=== PATIENT | female | born 1945 | race Caucasian/White ===

== ENCOUNTER 2021-12-04 09:44 | Inpatient (IN) | payer MEDICARE, OTHER, SELFPAY ==
[2021-12-04] VITALS (37 sets, daily range): BP systolic 100–146; BP diastolic 60–101; PULSE 89–193; RESP 12–29; TEMP 36.5–37.2; O2SAT 89–100; BMI 23.8
--- NOTE | 2021-12-04 | ECHO_ITS ---
Patient Info Name: Kavita Moreno Age: 76 years : 1945 Gender: Female Ht: 66 in Wt: 148 lbs BSA: 1.78 m2 HR: 90 bpm BP: 130 / 60 mmHg Technical Quality: Poor Exam Date: 12/04/2021 2:27 PM Exam Location: [facility], formerly [facility] Pulmonary Patient Status: Inpatient Admit Date: 12/04/2021 Staff Ordering Physician: Pedro Boyer DO Liner Checker: Cj Tse RDCS, RT Attending Provider: Ofelia Bai MD Exam Type: CA echo doppler color flow Study Info Complete two-dimensional, color flow and Doppler transthoracic echocardiogram is performed. Summary 1. Complete two-dimensional, color flow and Doppler transthoracic echocardiogram is performed. 2. Technically suboptimal study due to poor sonographic images. 3. Left ventricular chamber dimension is normal. 4. Left ventricular systolic function is normal, estimated at 60-65%. 5. The left ventricular diastolic function is grade I diastolic dysfunction. 6. E/e' 8 is minimally elevated. Left Ventricle E/e' 8 is minimally elevated. Technically suboptimal study due to poor sonographic images. Left ventricular chamber dimension is normal. Left ventricular systolic function is normal, estimated at 60-65%. The left ventricular diastolic function is grade I diastolic dysfunction. Right Ventricle Right ventricular systolic function is normal based on normal TAPSE 1.9 cm. Right ventricular chamber dimension is not well visualized. Left Atria Left atrial chamber dimension is normal. Right Atria Right atrial chamber dimension is not well visualized. Aortic Valve The aortic valve is not well visualized. Cannot determine number of aortic valve leaflets. There is no aortic valve stenosis. There is no aortic valve regurgitation. Pulmonic Valve The pulmonic valve is not well visualized. There is no pulmonic regurgitation. Mitral Valve The mitral valve has not well visualized. There is no mitral valve stenosis. There is no mitral valve regurgitation. Tricuspid Valve The tricuspid valve leaflets are not well visualized. There is no tricuspid valve regurgitation. Pericardium/Pleural There is no pericardial effusion. Inferior Vena Cava Normal inferior vena cava with >50% collapse upon inspiration consistent with normal right atrial pressure, 5 mmHg. Aorta The aortic root size at the sinus of Valsalva is not well visualized. Left Ventricular Outflow Tract Name Value Normal LVOT 2D LVOT Diameter 2.0 cm LVOT Doppler LVOT Peak Gradient 3 mmHg LVOT Mean Gradient 2 mmHg LVOT VTI 16 cm LVOT VTI/AV VTI Ratio 1.1 LVOT Stroke Volume 51 ml LVOT CO 4.7 l/min LVOT CI 2.7 l/min/m2 Mitral Valve Name Value Normal MV Doppler
--- NOTE | ~2021-12-04 | US_ITS ---
EXAMINATION: US thoracentesis DATE: 12/05/2021 13:20 INDICATION: Right pleural effusion. TECHNIQUE: The procedure and its risks, benefits, and alternatives were discussed with the patient. P otential risks discussed included bleeding, infection, and pneumothorax. The patient understood the r isks and agreed to proceed. The skin was prepped and draped in sterile fashion. 1% lidocaine was used for local anesthesia. Under ultrasound guidance, a 5 Fr catheter with trochar was advanced into the right pleural effusion. No fluid could be aspirated. The catheter was removed, and a dressing was mateo lied. There were no immediate complications. FINDINGS: Ultrasound images demonstrate a right pleural effusion and the catheter within the fluid. IMPRESSION: 1. Ultrasound-guided thoracentesis yielding no fluid. Reviewed, dictated and finalized at location A.
--- NOTE | ~2021-12-04 | CT_ITS ---
EXAMINATION: CT brain wo con DATE: 12/13/2021 21:08 INDICATION: Transient alteration of awareness. Altered mental status. Jerking of the extremities. TECHNIQUE: Computed tomography (CT) of the head was performed without intravenous contrast. The mA wa s adjusted according to patient size. Iterative reconstruction technique was employed. Exam dose: 60 5.33 mGy-cm total exam DLP. COMPARISON: None FINDINGS: Bilateral vertebral artery, basilar artery and bilateral carotid siphon internal carotid ar jone calcifications. There is nonspecific diminished attenuation of the cerebral white matter, likely due to chronic smal l vessel ischemic changes. Small old infarct high over the left parietal convexity. Small old focal temporal lobe infarct near the posterior aspect of the sylvian fissure. No intracranial mass lesion or hemorrhage. No midline shift or mass effect. No subdural or epidural hematoma. The mastoid air cells and included paranasal sinuses are unremarkable. No fracture or bone destruction of the cranial vault. IMPRESSION: Cerebral atherosclerosis and chronic small vessel ischemic changes of the cerebral white matter Small chronic infarcts high over the left parietal convexity and in the posterior left temporal area Reviewed, dictated and finalized at Location A. Reviewed, dictated and finalized at location A. IMPRESSION: Cerebral atherosclerosis and chronic small vessel ischemic changes of the cerebral white matter Small chronic infarcts high over the left parietal convexity and in the posteri or left temporal area
--- NOTE | ~2021-12-04 | MR_ITS ---
EXAMINATION: MR brain/brain stem wo/w con DATE: 12/14/2021 15:44 INDICATION: Jerking movements. Metastatic lung cancer. TECHNIQUE: Magnetic resonance imaging (MRI) of the brain and brainstem was performed without and with 14 mL MultiHance intravenous contrast. COMPARISON: Head CT 12/13/2021 FINDINGS: There are scattered areas of nonspecific increased T2-weighted signal intensity in the cere bral white matter. There is no acute ischemic infarct or intracranial hemorrhage. There is an old inf arct in posterior left frontal lobe. The ventricles are normal in size. There are likely changes of o cular lens replacement surgeries. There is mild mucosal thickening in the ethmoid sinuses. There is a trace left mastoid effusion. IMPRESSION: 1. No evidence of metastatic disease. 2. 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 3. Mild nonspecific cerebral white matter disease, which likely represents chronic small vessel ische anita disease. Reviewed, dictated and finalized at location A. IMPRESSION: 1. No evidence of metastatic disease. 2. 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 3. Mild nonspecific cerebral white matter disease, which likely represents credit counselor arcelia small vessel ischemic disease.
--- NOTE | ~2021-12-04 | XR_ITS ---
EXAMINATION: XR fl guide central line place DATE: 12/07/2021 10:22 INDICATION: Port catheter placement TECHNIQUE: 4 fluoroscopic images of the central chest were obtained during procedure performed by Dr. Patel. Radiologist was not present for the imaging or procedure. The amount of fluoroscopy time used during this procedure was 0.8 minutes. COMPARISON: None. FINDINGS/IMPRESSION: Images demonstrate placement of a left subclavian central venous port catheter which extends to at le ast the mid inferior vena cava. See procedure note for further detail. Reviewed, dictated and finalized at location B.
--- NOTE | ~2021-12-04 | XR_ITS ---
XR chest 2V 12/04/2021 10:25 Indication: Tachycardia Procedure: AP and lateral views of the chest Comparison: No prior studies for comparison. Findings: Large right pleural effusion. There are bilateral infiltrates which may represent edema or pneumonia. No pneumothorax. No left pleural effusion. Mediastinal shift to the right, consistent with volume loss. No acute osseous abnormality. Impression: 1: Diffuse bilateral infiltrates which may represent edema or pneumonia. 2: Large right pleural effusion. Reviewed, dictated and finalized at location A. Impression: 1: Diffuse bilateral infiltrates which may represent edema or pneumonia. 2: Large right pleural effusion.
--- NOTE | ~2021-12-04 | CT_ITS ---
EXAMINATION:CT diagnostic chest wo con DATE: 12/04/2021 12:26 INDICATION: Shortness of breath. Abnormal chest radiograph. TECHNIQUE: Computed tomography (CT) of the chest was performed without intravenous contrast. Automate d exposure control and iterative reconstruction technique were employed. The dose-length product (DLP ) was 129.05 mGy-cm. COMPARISON: Chest 2 views 12/04/2021 FINDINGS: There is a large right pleural effusion. There is volume loss of right hemithorax. There is material in the right mainstem bronchus and more distal right-sided bronchi. There is atelectasis th roughout the right middle lobe and right lower lobe. There is peripheral atelectasis in right upper l obe. There are patchy airspace opacities in right upper lobe. There is mild scarring at left lung ape x. There are greater than 10 scattered nodules and part solid nodules in left lung measuring up to 6 mm. The heart size is normal. There are coronary artery calcifications. No pericardial effusion. Ther e is mild mediastinal lymphadenopathy. For example, a right paratracheal node measures 12 x 11 mm. Th ere is a right breast implant. There is gastrohepatic lymphadenopathy with a niru mass measuring 6.2 x 4.2 cm. The adrenal glands are enlarged and indistinct. There is no severe thoracic spondylosis. T here is a lytic lesion involving T5 vertebral body. There is severe thoracic spondylosis. There is a lytic lesion in the manubrium of the sternum. IMPRESSION: 1. Large right pleural effusion. 2. Material in right mainstem bronchus, which may be a primary malignancy or mucus plugging. 3. Patchy airspace opacities in right lung upper lobe, consistent with pneumonia. 3. Scattered nodules in left lung, which may be infection or metastatic disease. 4. Lytic lesions of T5 vertebral body and manubrium of the sternum, consistent with metastatic diseas e. 5. Gastrohepatic and mediastinal lymphadenopathy, consistent with metastatic disease. 6. Enlargement of the adrenal glands suspicious for metastatic disease. Consider abdomen MRI without and with contrast. Reviewed, dictated and finalized at location A. IMPRESSION: 1. Large right pleural effusion. 2. Material in right mainstem bronchus, which may be a primary malignancy or mu cus plugging. 3. Patchy airspace opacities in right lung upper lobe, consistent with pneumoni a. 3. Scattered nodules in left lung, which may be infection or metastatic disease . 4. Lytic lesions of T5 vertebral body and manubrium of the sternum, consistent with metastatic disease. 5. Gastrohepatic and mediastinal lymphadenopathy, consistent with metastatic di sease. 6. Enlargement of the adrenal glands suspicious for metastatic disease. Conside r abdomen MRI without and with contrast.
--- NOTE | ~2021-12-04 | XR_ITS ---
EXAMINATION: XR chest 1V portable DATE: 12/17/2021 08:00 INDICATION: Increased work of breathing. TECHNIQUE: A single frontal view of the chest was obtained. COMPARISON: Chest single view 12/07/2021, chest CT 12/04/2021 FINDINGS: There is a moderate-sized right pleural effusion. There are airspace opacities in all lung zones bilaterally. There is a diffuse interstitial pattern. No pneumothorax. The heart size is normal . There is a left subclavian port with tip in superior vena cava. There are surgical clips in right b reast. There is a right breast implant. IMPRESSION: 1. Worsened diffuse lung disease, consistent with pulmonary edema versus pneumonia. 2. Stable moderate-sized right pleural effusion. Reviewed, dictated and finalized at location B. IMPRESSION: 1. Worsened diffuse lung disease, consistent with pulmonary edema versus pneumo jovani. 2. Stable moderate-sized right pleural effusion.
--- NOTE | ~2021-12-04 | XR_ITS ---
EXAMINATION: XR chest port-a-cath/central DATE: 12/07/2021 10:44 INDICATION: Port placement. TECHNIQUE: A single frontal view of the chest was obtained. COMPARISON: Chest single view 12/05/2021 FINDINGS: There is a moderate-sized right pleural effusion and pleural thickening. There are airspace opacities in right lung. There is a mass in right mainstem bronchus. No pneumothorax. The heart size is normal. There is a left subclavian port with tip in superior vena cava. There is a right breast i mplant. IMPRESSION: 1. Port tip in superior vena cava. 2. Unchanged moderate-sized right pleural effusion and pleural thickening. 3. Stable airspace opacities in right lung, consistent with atelectasis versus pneumonia. 4. Mass in right mainstem bronchus, likely malignancy. Reviewed, dictated and finalized at location A.
--- NOTE | ~2021-12-04 | XR_ITS ---
EXAMINATION: [id number] DATE: 12/05/2021 13:16 INDICATION: Right pleural effusion status post thoracentesis. TECHNIQUE: A single frontal view of the chest was obtained. COMPARISON: Chest CT 12/04/2021 FINDINGS: There is a moderate-sized right pleural effusion and pleural thickening. There are airspace opacities are noted along with a peripheral predominance. There is mild scarring at left lung apex. There is a mass in right mainstem bronchus. No pneumothorax. There are surgical clips in right axilla . There is a right breast implant. IMPRESSION: 1. Unchanged moderate-sized right pleural effusion and pleural thickening. Today's thoracentesis yiel ded no fluid. 2. Stable airspace opacities in right lung with a peripheral predominance, consistent with atelectasi s without or with superimposed pneumonia. 3. Mass in right mainstem bronchus, likely malignancy. Reviewed, dictated and finalized at location A. IMPRESSION: 1. Unchanged moderate-sized right pleural effusion and pleural thickening. Toda y's thoracentesis yielded no fluid. 2. Stable airspace opacities in right lung with a peripheral predominance, cons istent with atelectasis without or with superimposed pneumonia. 3. Mass in right mainstem bronchus, likely malignancy.
--- NOTE | ~2021-12-04 | CT_ITS ---
EXAMINATION: CT diagnostic chest wo con DATE: 12/17/2021 10:51 INDICATION: Resp Failure TECHNIQUE: Computed tomography (CT) of the chest was performed without intravenous contrast. Addition al 3D reconstructions utilizing coronal maximum intensity projection (MIP) were performed. Automated exposure control and iterative reconstruction technique were employed. The dose-length product was 22 1.74 mGy-cm. COMPARISON: 12/04/2021 FINDINGS: Patchy consolidation and groundglass opacities in the left lower lobe, lingula and bilateral upper lo bes. Collapse of the right upper and middle lobes with volume loss right hemithorax resulting in righ tward shift of the heart and mediastinum. Small bilateral pleural effusions, chronic on the right wit h associated smooth pleural thickening. Cardiomegaly. Atherosclerotic coronary artery calcifications and possible coronary artery stenting. No pericardial effusion. Thoracic aorta is normal in caliber. Calcified mediastinal lymph nodes consistent with old granulomatous disease. Postoperative change at the right breast likely related to prior mastectomy and implant reconstruction. Surgical clips the ri ght axilla consistent with associated axillary lymph node dissection. Left subclavian central venous port catheter with distal tip at the caudal superior vena cava. Mild to moderate spondylosis in the t horacic, lower cervical and upper lumbar spine. Scattered subtle liver lesions most prominent at the at T5 in the left side of the manubrium. There is approximately 6.9 x 5.8 cm mass potentially conflue nt lymphadenopathy along the gastrohepatic ligament. Multiple additional smaller retroperitoneal mass es in the left and right upper quadrants likely also involving the bilateral adrenal glands. IMPRESSION: 1. Patchy consolidation groundglass opacities throughout both lungs consistent with pneumonia versus less likely pulmonary edema. 2. Small bilateral pleural effusions, unchanged and likely complex with pleural thickening on the rig ht. 3. Persistent collapse of the right middle and lower lobes. 4. No lytic bone lesions at the C5 vertebral body and left-sided the manubrium consistent with metast atic disease. 5. There is enlargement of a now 6.9 x 5.8 cm mass along the gastrohepatic ligament an additional sma ller retroperitoneal mass in the left and right upper quadrant likely involving the adrenal glands vega spicious for metastatic disease. Reviewed, dictated and finalized at location A. IMPRESSION: 1. Patchy consolidation groundglass opacities throughout both lungs consistent with pneumonia versus less likely pulmonary edema. 2. Small bilateral pleural effusions, unchanged and likely complex with pleural thickening on the right. 3. Persistent collapse of the right middle and lower lobes. 4. No lytic bone lesions at the C5 vertebral body and left-sided the manubrium consistent with metastatic disease. 5. There is enlargement of a now 6.9 x 5.8 cm mass along the gastrohepatic liga ment an additional smaller retroperitoneal mass in the left and right upper nelsy drant likely involving the adrenal glands suspicious for metastatic disease.
--- NOTE | ~2021-12-04 | XR_ITS ---
XR abdomen/kub 1V 12/11/2021 12:46 Indication: Constipation Procedure: KUB Comparison: No prior studies for comparison. Findings: Moderate colonic fecal loading. Nonobstructive bowel gas pattern. There is moderate gas in the colon. No abnormal calcifications. There is lumbar spondylosis. Impression: 1: Moderate colonic fecal loading. Reviewed, dictated and finalized at location B. Impression: 1: Moderate colonic fecal loading.
--- NOTE | ~2021-12-04 | US_ITS ---
EXAMINATION: US abdomen limited DATE: 12/08/2021 15:13 INDICATION: Ascites. TECHNIQUE: Multiple grayscale and Doppler ultrasound images of the abdomen in all 4 quadrants and in the midline were obtained. COMPARISON: None available FINDINGS: No fluid detected on evaluation of all 4 abdominal quadrants and midline abdominal regions. IMPRESSION: 1. No ascites. Reviewed, dictated and finalized at location K. IMPRESSION: 1. No ascites.
--- NOTE | 2021-12-04 09:54 | ECG_ITS ---
Measurements Intervals Portia Rate: 178 P: RI: 0 QRS: 48 QRSD: 86 T: 89 QT: 236 QTc: 406 Interpretive Statements ATRIAL FIBRILLATION WITH RAPID VENTRICULAR RESPONSE NONSPECIFIC ST & T-WAVE ABNORMALITY- INF/HIGH LAT LEADS ABNORMAL ECG Electronically Signed On 12-04-2021 14:12:03 CDT by Pedro Boyer D.O.
--- NOTE | 2021-12-04 10:02 | ED.GENADULT ---
HPI - General Adult General Chief complaint: Unspecified Stated complaint: pain all over Time Seen by Provider: 12/04/21 09:50 History of Present Illness HPI narrative: 76-year-old female presenting here with allover body pain and generalized weakness, she has been feeling extremely unwell starting about 2 days ago, no chest pain but persistent cough, she has a history of stage IV lung cancer for which she was going to be starting chemo today but was feeling so unwell she cannot go in. She has persistent nausea. She states she feels some new lumps in her abdomen. Related Data Home Medications Medication Instructions Recorded Confirmed albuterol 90 mcg/actuation aerosol 2 mcg inhalation Q6-8H PRN 11/06/21 12/04/21 inhaler Shortness Of Breath benzonatate 100 mg capsule 200 mg PO TID PRN Cough 11/06/21 12/04/21 glipizide 5 mg tablet 5 mg PO BID 11/06/21 12/04/21 insulin glargine 100 unit/mL 40 unit subcut QAM 11/06/21 12/04/21 subcutaneous cartridge morphine 15 mg immediate release 7.5 mg PO Q4H PRN Pain 11/06/21 12/04/21 tablet morphine 15 mg tablet,oral ONLY 15 mg PO Q12H 11/06/21 12/04/21 (not feeding tubes) duloxetine 30 mg capsule,delayed 1 mg PO DAILY 12/04/21 12/04/21 release gabapentin 100 mg capsule 100 mg PO TID 12/04/21 12/04/21 nortriptyline 25 mg capsule 25 mg PO HS 12/04/21 12/04/21 ondansetron HCl 4 mg tablet 4 mg PO Q6H PRN Nausea 12/04/21 12/04/21 Allergies Allergy/AdvReac Type Severity Reaction Status Date / Time No Known Allergies Allergy Verified 12/04/21 09:54 Review of Systems Review of Systems: CONST: No fever. HEENT: No sore throat C/V: No chest pain RESP: cough GI: Reports nausea; states she feels a new lump in her abdomen : No dysuria. M/S: Pain everywhere SKIN: No rash. 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) Asthma Breast cancer Diabetes mellitus Dyslipidemia Hypertension 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 Surgical History Surgical History (Updated 12/04/21 @ 19:19 by Oksana Hyde APRN) History of dilatation and curettage History of right mastectomy History of tubal ligation Family History Family History (Updated 12/04/21 @ 13:38 by TALI Gomez) Father Heart failure Mother COPD (chronic obstructive pulmonary disease) Failure to thrive Sibling Paranoia Glaucoma Gallbladder disease Social History Social History Smoking packs per day: 1.5 Smoking cigarettes per day: 30.0 Years smoked: 35 Smoking pack-years: 52.50 Smoking status: Former smoker Tobacco type: cigarettes Spiritual care concerns: No Exam Narrative: EXAMINATION OF ORGAN SYSTEMS/BODY AREAS: Constitutional: Vital signs per nursing GENERAL: Appears uncomfortable in bed HEAD: Normal with no signs of head trauma. EYES: EOMI, conjunctiva normal ENT: Hearing grossly intact LUNGS: Coarse lung sounds HEART: Tachycardic ABD: [Soft], [nontender to palpation] with some palpable masses EXT: Normal range of motion NEURO: [Alert and oriented x 3. No gross focal sensory or strength deficits.] PSYCH: Normal affect Course Vital Signs Vital signs: Vital Signs Temperature 97.8 F 12/04/21 09:49 Pulse Rate 177 H 12/04/21 09:49 Respiratory Rate 20 12/04/21 09:49 Blood Pressure 146/101 H 12/04/21 09:49 Pulse Oximetry 99 12/04/21 09:49 Oxygen Delivery Nasal Cannula 12/04/21 09:49 Oxygen Flow Rate 2 12/04/21 09:49 Temperature 98.9 F 12/04/21 16:12 Pulse Rate 93 12/04/21 18:00 Respiratory Rate 18 12/04/21 16:12 Blood Pressure 126/88 12/04/21 16:12 Pulse Oximetry 100 12/04/21 16:12 Oxygen Delivery Nasal Cannula 12/04/21 16:00 Oxygen Flow Rate 2 12/04/21 16:00 Medical Decision Making MDM Narrative Medical decision
[2021-12-04] MEDS: dilTIAZem 100 MG/100 ML 100 MG/100 ML BAG IV CONT (10:06)
[2021-12-04] MEDS: dilTIAZem HCl INJ 25 MG/5 ML VIAL 10 MG IV PUSH ×2 (10:06→10:53)
[2021-12-04 10:08] LABS: Basophils Absolute Auto 0.1 K/mm3 (0.0-0.1); Basophils Percent Auto 0.7 % (0.2-1.2); Eosinophils Absolute Auto 0.3 K/mm3 (0-0.3); Eosinophils Percent Auto 1.7 % (0-4.4); Hematocrit 38.4 % (37.0-47.0); Hemoglobin 11.8 g/dL (12.0-15.0); Immature Granulocyte Absolute 0.11 K/mm3 (0.00-0.031); Immature Granulocyte Percent A 0.7 % (0-0.5); Lymphocytes Absolute Auto 1.08 K/mm3 (0.9-3.2); Lymphocytes Percent Auto 6.7 % (18.3-44.2); Mean Corpuscular HGB Conc 30.7 g/dl (32-36); Mean Corpuscular Hemoglobin 26.8 pg (26-34); Mean Corpuscular Volume 87.3 fl (80-100); Mean Platelet Volume 9.2 fl (7.4-10.4); Monocytes Absolute Auto 1.4 K/mm3 (0.1-0.6); Monocytes Percent Auto 8.3 % (2.6-8.5); Neutrophils Absolute Auto 13.3 K/mm3 (1.3-6.7); Neutrophils Percent Auto 81.9 % (45.5-73.1); Platelet Count Result 641 k/mm3 (150-375); Red Cell Distribution Width 16.2 % (11.5-14.5); White Blood Count 16.2 K/mm3 (4.5-10.0)
[2021-12-04] MEDS: LACTATED RINGERS 1,000 ML 999 ML IV CONT ×2 (10:09→10:54)
[2021-12-04] MEDS: ONDANSETRON INJ 4 MG/2 ML VIAL IV PUSH (10:11)
[2021-12-04 10:18] LABS: Lactic Acid Reflex 2.8 mmol/L (0.7-2.0)
[2021-12-04 10:32] LABS: Alanine Aminotransferase 20 U/L (6-35); Albumin Level 3.6 g/dL (3.5-5.1); Alkaline Phosphatase 133 U/L (38-126); Anion Gap 12 mmol/L (8-16); Aspartate Amino Transferase 39 U/L (14-36); Blood Urea Nitrogen 13 mg/dL (7-17); CRP 7.5 mg/dL (<1.0); Calcium 10.2 mg/dL (8.4-10.2); Carbon Dioxide 23 mmol/L (22-30); Chloride 98 mmol/L (98-107); Estimated CRCL calculation 76 ml/min; Estimated Glomerular Filt Rate > 60; Glucose 253 mg/dL (65-110); Potassium 5.1 mmol/L (3.4-5.0); Sodium 133 mmol/L (137-145)
[2021-12-04] MEDS: MORPHINE SULFATE (*CRX) 4 MG/ML INJ IV PUSH (10:52)
[2021-12-04 10:58] LABS: INR 2.5; Prothrombin Time 26.1 Seconds (11.1-14.7)
[2021-12-04 11:23] LABS: SARS-CoV-2 RNA PCR Negative
[2021-12-04 13:06] LABS: Reflex Lactic Acid Yes or No Add Lactic
--- NOTE | 2021-12-04 13:24 | ADMGEN ---
This patient, Kavita Moreno, was admitted to IMU Room 211-01 at 1255. Patient/family oriented to hospital policies and general routines including ID bracelet, bed and alarms, visiting hours, pain management, procedures, bathroom and other care routines, personal items, smoking policy, room service/diet, and visiting hours. Information on how to activate the Rapid Response Team has been discussed. Patient/Family are encouraged to report perceived risks to care and to ask questions if they do not understand what they are told or what they should do.
[2021-12-04 13:46] LABS: Lactic Acid 2.3 mmol/L (0.7-2.0)
[2021-12-04 16:25] LABS: Glucose Point of Care 143 mg/dl (65-105)
[2021-12-04] MEDS: glipiZIDE 5 MG TABLET PO (16:59)
[2021-12-04] MEDS: GABAPENTIN 100 MG CAPSULE PO (16:59)
--- NOTE | 2021-12-04 17:34 | PM.CNCAR ---
Assessment and Plan Assessment and plan (1) PAF (paroxysmal atrial fibrillation): Code(s): I48.0 - Paroxysmal atrial fibrillation Status: Acute Assessment and Plan: Probably due to pneumonia. [id number] 3. Given metastatic lung cancer discussed with patient anticoagulation vs aspirin. If she has no evidence of bleeding and does not require any immediate invasive procedures, would rather she go on anticoagulation with Eliquis 2.5 mg BID. Otherwise would just have her on aspirin 325 mg daily. Stop Diltiazem as she is back in sinus rhythm. Start Diltiazem 240 mg daily starting tomorrow morning. (2) Pneumonia: Code(s): J18.9 - Pneumonia, unspecified organism Status: Acute Assessment and Plan: Antibiotics as per hospitalist. (3) 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: Code(s): C34.81 - 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 Status: Acute History of Present Illness History of Present Illness Consult date/time: 12/04/21 17:34 Reason for consult: new onset atrial fib. 76 yr old woman presented to ER for generalized body pain and weakness. She has a history of stage IV right lung cancer and had resection and about to start chemotherapy and had thoracentesis twice, DM, former smoker. Reports she noted a fast HR intermittently on pulse ox at home. She is limited at walking only short distances. She has chronic sob. Denies chest pain, orthopnea, PND, edema, dizziness. EKG showed atrial fib with RVR at 178 bpm. CXR shows diffuse bilateral infiltrates with large right pleural effusion. CT chest shows large right pleural effusion; material in right mainstem bronchus secondary to mucous plugging or metastasis; pneumonia of RUL, lytic lesions of T5 secondary to metastasis. She was started on Diltiazem drip and showed her atrial fib, then she cardioverted to sinus rhythm. Reason For Visit: afib rvr, sepsis Review of Systems Review of Systems: All systems reviewed & are unremarkable except as noted in HPI and below Constitutional: Constitutional: Reports as per HPI, Denies chills, Reports fatigue and Denies fever(s) Cardiovascular: Cardiovascular: Reports as per HPI, Denies chest pain, Reports irregular heart rhythm, Denies leg edema and Denies lightheadedness Respiratory: Respiratory: Reports as per HPI and Reports dyspnea on exertion Gastrointestinal: Gastrointestinal: Reports as per HPI and Denies abdominal pain Genitourinary: Genitourinary: Reports as per HPI and Denies dysuria Musculoskeletal: Musculoskeletal: Reports as per HPI Neurologic: Reports as per HPI, Denies dizziness and Denies syncope [facility] Past Medical History Medical History (Updated 12/04/21 @ 17:41 by Pedro Boyer DO) 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 Family History Family History (Updated 12/04/21 @ 13:38 by TALI Gomez) Father Heart failure Mother COPD (chronic obstructive pulmonary disease) Failure to thrive Sibling Paranoia Glaucoma Gallbladder disease Social History Social History Smoking packs per day: 1.5 Smoking cigarettes per day: 30.0 Years smoked: 35 Smoking pack-years: 52.50 Smoking status: Former smoker Tobacco type: cigarettes Spiritual care concerns: No Meds Home Medications and Allergies Home Medications Medication Instructions Recorded Confirmed Type albuterol 90 mcg/actuation aerosol 2 mcg inhalation Q6-8H PRN 11/06/21 12/04/21 History inhaler Shortness Of Breath benzonatate 100 mg capsule 200 mg PO TID PRN Cough 11/06/21 12/04/21 History glipizide 5 mg tablet 5 mg PO BID 11/06/21 12/04/21 History insulin glargine 100 unit/mL 40 unit subcut QAM 11/06/21 12/04/21 History subcutaneous cartridge morphine 15 mg immediate release 7.5 mg PO Q4H PRN Pain 11/06/21 12/04/21 History tablet morphine 15 mg tab
[2021-12-04] MEDS: oxyCODONE HCL (*CRX) 5 MG TAB IR PO (17:47)
--- NOTE | 2021-12-04 19:07 | PM.IMHP ---
H&P: HPI History of Present Illness Date/Time: Patient requires inpatient monitoring with expected length of stay to exceed 2 midnights for management of care. 12/04/21 19:07 Chief Complaint: Myalgias Narrative: Ms. Moreno is a 76-year-old female who presented emergency room with complaints of pain over entire body. Patient has a known history of stage IV lung cancer in states that today she been having pain over her entire body. Patient states she has been having increasing dyspnea on exertion and a cough with clear sputum. Patient denies any chest discomfort or palpitations. Patient states she does wear oxygen at 3-4 L at home at all times. Patient states she did receive radiation treatment for her lung cancer and she had 2 treatments left but she was unable to finish secondary to becoming too sick. Patient states she has also had to have 2 thoracenteses at [facility] last 1 being 1-2 months ago. Upon evaluation in emergency room patient was noted to be in atrial fibrillation with rapid ventricular response and was placed on a Cardizem drip. Patient subsequently converted to normal sinus rhythm with a heart rate in the 80s to 90s. Patient was also noted to have a leukocytosis and a CT showing a large right pleural effusion material limb right mainstem bronchus, which may be primary malignancy or mucous plugging, patchy airspace opacities in the right lung upper lobe consistent with pneumonia, scattered nodules in the left lung, which may be infection or metastatic disease. Patient was given vancomycin and cefepime for pneumonia and cardiology's consult. Patient has a known history of right breast cancer status post mastectomy, asthma, diabetes mellitus, hypertension, dyslipidemia, and stage IV lung carcinoma. Review of Systems Review of Systems: A 12 point review of systems was completed patient all pertinent positive and negative per HPI the remainder are unremarkable. [facility] Past Medical History Medical History (Updated 12/04/21 @ 19:35 by Oksana Hyde APRN) Asthma Breast cancer Diabetes mellitus Dyslipidemia Hypertension 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 Surgical History Surgical History (Updated 12/04/21 @ 19:19 by Oksana Hyde APRN) History of dilatation and curettage History of right mastectomy History of tubal ligation Family History Family History (Updated 12/04/21 @ 13:38 by TALI Gomze) Father Heart failure Mother COPD (chronic obstructive pulmonary disease) Failure to thrive Sibling Paranoia Glaucoma Gallbladder disease Social History Social History Smoking packs per day: 1.5 Smoking cigarettes per day: 30.0 Years smoked: 35 Smoking pack-years: 52.50 Smoking status: Former smoker Tobacco type: cigarettes Spiritual care concerns: No Meds Home Medications and Allergies Home Medications Medication Instructions Recorded Confirmed Type albuterol 90 mcg/actuation aerosol 2 mcg inhalation Q6-8H PRN 11/06/21 12/04/21 History inhaler Shortness Of Breath benzonatate 100 mg capsule 200 mg PO TID PRN Cough 11/06/21 12/04/21 History glipizide 5 mg tablet 5 mg PO BID 11/06/21 12/04/21 History insulin glargine 100 unit/mL 40 unit subcut QAM 11/06/21 12/04/21 History subcutaneous cartridge morphine 15 mg immediate release 7.5 mg PO Q4H PRN Pain 11/06/21 12/04/21 History tablet morphine 15 mg tablet,oral ONLY 15 mg PO Q12H 11/06/21 12/04/21 History (not feeding tubes) duloxetine 30 mg capsule,delayed 1 mg PO DAILY 12/04/21 12/04/21 History release gabapentin 100 mg capsule 100 mg PO TID 12/04/21 12/04/21 History nortriptyline 25 mg capsule 25 mg PO HS 12/04/21 12/04/21 History ondansetron HCl 4 mg tablet 4 mg PO Q6H PRN Nausea 12/04/21 12/04/21 History Allergies Allergy/AdvReac Type Severity Reaction Status Date / Time No Known Al
[2021-12-04 19:15] LABS: Anion Gap 3 mmol/L (8-16); Blood Urea Nitrogen 12 mg/dL (7-17); Calcium 9.4 mg/dL (8.4-10.2); Carbon Dioxide 27 mmol/L (22-30); Chloride 98 mmol/L (98-107); Estimated CRCL calculation 76 ml/min; Estimated Glomerular Filt Rate > 60; Glucose 153 mg/dL (65-110); Lactic Acid Reflex 1.8 mmol/L (0.7-2.0); Potassium 4.4 mmol/L (3.4-5.0); Sodium 128 mmol/L (137-145)
[2021-12-04 19:53] LABS: Glucose Point of Care 138 mg/dl (65-105)
[2021-12-04] MEDS: dilTIAZem HCL 60 MG TABLET PO (21:36)
[2021-12-04] MEDS: ONDANSETRON HCL ODT 4 MG TABLET PO (21:36)
[2021-12-04] MEDS: NORTRIPTYLINE HCL 25 MG CAPSULE PO (21:36)
[2021-12-04] MEDS: MORPHINE SULFATE (*CRX) 15 MG TABCR PO (21:36)
[2021-12-05] VITALS (18 sets, daily range): BP systolic 110–140; BP diastolic 43–70; PULSE 78–110; RESP 15–22; TEMP 36.2–36.7; O2SAT 94–100; BMI 23.7
[2021-12-05 05:03] LABS: Basophils Absolute Auto 0.1 K/mm3 (0.0-0.1); Basophils Percent Auto 0.8 % (0.2-1.2); Eosinophils Absolute Auto 0.4 K/mm3 (0-0.3); Hematocrit 30.8 % (37.0-47.0); Hemoglobin 9.3 g/dL (12.0-15.0); Immature Granulocyte Absolute 0.04 K/mm3 (0.00-0.031); Immature Granulocyte Percent A 0.5 % (0-0.5); Lymphocytes Absolute Auto 0.73 K/mm3 (0.9-3.2); Lymphocytes Percent Auto 9.6 % (18.3-44.2); Mean Corpuscular HGB Conc 30.2 g/dl (32-36); Mean Platelet Volume 8.8 fl (7.4-10.4); Neutrophils Absolute Auto 5.4 K/mm3 (1.3-6.7); Neutrophils Percent Auto 71.1 % (45.5-73.1); Platelet Count Result 337 k/mm3 (150-375); Red Blood Count 3.58 M/mm3 (4.2-5.4); Red Cell Distribution Width 15.8 % (11.5-14.5); White Blood Count 7.6 K/mm3 (4.5-10.0)
[2021-12-05 05:12] LABS: Alanine Aminotransferase 13 U/L (6-35); Albumin Level 2.7 g/dL (3.5-5.1); Alkaline Phosphatase 96 U/L (38-126); Anion Gap 3 mmol/L (8-16); Aspartate Amino Transferase 24 U/L (14-36); Bilirubin,Total 0.4 mg/dL (0.2-1.3); Blood Urea Nitrogen 9 mg/dL (7-17); Calcium 9.3 mg/dL (8.4-10.2); Carbon Dioxide 29 mmol/L (22-30); Chloride 97 mmol/L (98-107); Estimated CRCL calculation 76 ml/min; Estimated Glomerular Filt Rate > 60; Glucose 127 mg/dL (65-110); Magnesium 1.4 mg/dL (1.6-2.3); Potassium 3.8 mmol/L (3.4-5.0); Sodium 129 mmol/L (137-145)
[2021-12-05 05:15] LABS: INR 1.1; Prothrombin Time 13.9 Seconds (11.1-14.7)
[2021-12-05] MEDS: oxyCODONE HCL (*CRX) 5 MG TAB IR PO ×2 (06:59→15:47)
--- NOTE | 2021-12-05 07:56 | PM.PNCARD ---
Progress Note: A&P Assessment and Plan (1) PAF (paroxysmal atrial fibrillation): Code(s): I48.0 - Paroxysmal atrial fibrillation Status: Acute Assessment and Plan: Probably due to pneumonia. [id number] 3. Given metastatic lung cancer discussed with patient anticoagulation vs aspirin.? If she has no evidence of bleeding and does not require any immediate invasive procedures, would rather she go on anticoagulation with Eliquis 2.5 mg BID. Otherwise would just have her on aspirin 325 mg daily. Eliquis being held due to possible thoracentesis and INR was high at 2.5 yesterday but back down to 1.1 today. Await hematology consult for it. (2) Hypertension: Code(s): I10 - Essential (primary) hypertension Status: Acute Assessment and Plan: Stable. (3) Pneumonia: Code(s): J18.9 - Pneumonia, unspecified organism Status: Acute Assessment and Plan: On antibiotics as per hospitalist. (4) Pleural effusion: Code(s): J90 - Pleural effusion, not elsewhere classified Status: Acute Assessment and Plan: Considering right thoracentesis. She had it done twice before at [facility]. Subjective Date/time seen: 12/05/21 07:56 Has chronic sob. No chest pains. Exam Const: General: cooperative, healthy appearing and comfortable Resp: Auscultation: no crackles, no rales, no rhonchi, no wheezes and diminished lung sounds Cardio: Jugular venous distension: no JVD Rate: regular rate Rhythm: regular rhythm Heart sounds: no murmurs Peripheral pulses: dorsalis pedis present GI: GI Palp: No abdominal tenderness and Yes Soft to palpation Neuro: General: oriented to person, oriented to place and oriented to time Extrem: Right lower extremity: no edema Left lower extremity: no edema Objective Data Vital Signs Vital Signs: Vital Signs - 24 hr 12/04/21 09:49 12/04/21 09:58 12/04/21 10:06 Temperature 97.8 F Pulse Rate 177 H 180 H 178 H Respiratory Rate 20 Blood Pressure 146/101 H 123/90 Pulse Oximetry 99 Oxygen Delivery Nasal Cannula Oxygen Flow Rate 2 12/04/21 09:51 12/04/21 09:52 12/04/21 10:00 Temperature Pulse Rate 164 H 166 H 193 H Respiratory Rate 22 H 24 H 25 H Blood Pressure 146/101 H Pulse Oximetry 99 100 100 Oxygen Delivery Oxygen Flow Rate 12/04/21 10:01 12/04/21 10:22 12/04/21 10:30 Temperature Pulse Rate 184 H 167 H 153 H Respiratory Rate 29 H 23 H 19 Blood Pressure 123/90 Pulse Oximetry 100 100 100 Oxygen Delivery Oxygen Flow Rate 12/04/21 10:45 12/04/21 10:50 12/04/21 11:00 Temperature Pulse Rate 156 H 160 H 106 H Respiratory Rate 18 18 20 Blood Pressure 100/67 Pulse Oximetry 100 100 100 Oxygen Delivery Oxygen Flow Rate 12/04/21 11:01 12/04/21 11:39 12/04/21 11:02 Temperature Pulse Rate 116 H 97 110 H Respiratory Rate 16 19 Blood Pressure 128/78 Pulse Oximetry 99 100 Oxygen Delivery Oxygen Flow Rate 12/04/21 11:15 12/04/21 11:17 12/04/21 11:30 Temperature Pulse Rate 133 H 135 H 98 Respiratory Rate 12 17 Blood Pressure 128/96 H Pulse Oximetry 100 89 L Oxygen Delivery Oxygen Flow Rate 12/04/21 11:31 12/04/21 11:45 12/04/21 11:46 Temperature Pulse Rate 98 96 97 Respiratory Rate 12 27 H 13 Blood Pressure 123/72 121/60 Pulse Oximetry 100 100 100 Oxygen Delivery Oxygen Flow Rate 12/04/21 11:47 12/04/21 12:00 12/04/21 12:01 Temperature Pulse Rate 96 98 97 Respiratory Rate 17 Blood Pressure 120/67 Pulse Oximetry 100 100 100 Oxygen Delivery Oxygen Flow Rate 12/04/21 12:29 12/04/21 12:30 12/04/21 12:39 Temperature Pulse Rate 100 Respiratory Rate 28 H Blood Pressure 118/70 Pulse Oximetry 100 100 100 Oxygen Delivery Oxygen Flow Rate 12/04/21 12:47 12/04/21 13:16 12/04/21 14:00 Temperature 97.7 F Pulse Rate 97 94 91 Respiratory Rate 18 20 Blood Pressure 123/83 130/60 Pulse Oxime
[2021-12-05 08:10] LABS: Glucose Point of Care 128 mg/dl (65-105)
[2021-12-05] MEDS: GABAPENTIN 100 MG CAPSULE PO ×3 (08:27→17:34)
[2021-12-05] MEDS: BENZONATATE 100 MG CAPSULE 200 MG PO ×2 (08:27→18:45)
[2021-12-05] MEDS: dilTIAZem HCL 60 MG TABLET PO ×2 (08:27→20:02)
[2021-12-05] MEDS: glipiZIDE 5 MG TABLET PO ×2 (08:27→17:34)
[2021-12-05] MEDS: DULoxetine HCL 30 MG CAPSULE.DR PO (08:27)
[2021-12-05] MEDS: INSULIN GLARGINE (*BKC) 100 UNITS/ML 40 UNITS SUB-Q (08:28)
[2021-12-05] MEDS: MORPHINE SULFATE (*CRX) 15 MG TABCR PO ×2 (08:28→21:29)
--- NOTE | 2021-12-05 11:00 | PM.IMPN ---
Progress Note: A&P Assessment and Plan (1) Pleural effusion: Code(s): J90 - Pleural effusion, not elsewhere classified Status: Acute (2) Elevated INR: Code(s): R79.1 - Abnormal coagulation profile Status: Acute (3) Dyslipidemia: Code(s): E78.5 - Hyperlipidemia, unspecified Status: Acute (4) Hypertension: Code(s): I10 - Essential (primary) hypertension Status: Acute (5) Diabetes mellitus: Code(s): E11.9 - Type 2 diabetes mellitus without complications Status: Acute (6) Pneumonia: Code(s): J18.9 - Pneumonia, unspecified organism Status: Acute (7) PAF (paroxysmal atrial fibrillation): Code(s): I48.0 - Paroxysmal atrial fibrillation Status: Acute (8) 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: Code(s): C34.81 - 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 Status: Acute (9) Non-small cell lung cancer: Code(s): C34.90 - Malignant neoplasm of unspecified part of unspecified bronchus or lung Status: Acute (10) Hypomagnesemia: Code(s): E83.42 - Hypomagnesemia Status: Acute Plan 12/05/21 c/s IR for thoracentesis pending oncology eval cardiology managing PAF OAC after thoracentesis Subjective Date/time seen: 12/05/21 11:00 pt doing ok overall concerned about her quality of life. has been unable to tolerate radiation therapy. She is interested in perusing chemo if able to. Does express that she is ok and is content with her life. We all have to at sometime. Pt reassured to speak w Dr Lujan to review available treatments and prognosis of her aggressive ca w tx Exam Narrative: GEN: NAD, AAOx3, cooperative HEENT: NCAT, MMM, EOMI Neck: no JVD Heart: IRR Lungs: crackles Abd: soft, NT, ND, bowel sounds normoactive Ext: moves all, no cyanosis, no clubbing, no edema Neuro: normal cognition, CN intact, no focal deficits appeciated Psych: mood affect congruent appropriate for current topic of discussion Objective Data Vital Signs Vital Signs: Vital Signs - 24 hr 12/04/21 11:01 12/04/21 11:39 12/04/21 11:02 Temperature Pulse Rate 116 H 97 110 H Respiratory Rate 16 19 Blood Pressure 128/78 Pulse Oximetry 99 100 Oxygen Delivery Oxygen Flow Rate 12/04/21 11:15 12/04/21 11:17 12/04/21 11:30 Temperature Pulse Rate 133 H 135 H 98 Respiratory Rate 12 17 Blood Pressure 128/96 H Pulse Oximetry 100 89 L Oxygen Delivery Oxygen Flow Rate 12/04/21 11:31 12/04/21 11:45 12/04/21 11:46 Temperature Pulse Rate 98 96 97 Respiratory Rate 12 27 H 13 Blood Pressure 123/72 121/60 Pulse Oximetry 100 100 100 Oxygen Delivery Oxygen Flow Rate 12/04/21 11:47 12/04/21 12:00 12/04/21 12:01 Temperature Pulse Rate 96 98 97 Respiratory Rate 17 Blood Pressure 120/67 Pulse Oximetry 100 100 100 Oxygen Delivery Oxygen Flow Rate 12/04/21 12:29 12/04/21 12:30 12/04/21 12:39 Temperature Pulse Rate 100 Respiratory Rate 28 H Blood Pressure 118/70 Pulse Oximetry 100 100 100 Oxygen Delivery Oxygen Flow Rate 12/04/21 12:47 12/04/21 13:16 12/04/21 14:00 Temperature 97.7 F Pulse Rate 97 94 91 Respiratory Rate 18 20 Blood Pressure 123/83 130/60 Pulse Oximetry 98 100 Oxygen Delivery Oxygen Flow Rate 12/04/21 16:12 12/04/21 16:00 12/04/21 16:00 Temperature 98.9 F Pulse Rate 93 89 Respiratory Rate 18 Blood Pressure 126/88 Pulse Oximetry 100 95 Oxygen Delivery Nasal Cannula Oxygen Flow Rate 2 12/04/21 18:00 12/04/21 20:00 12/04/21 20:00 Temperature 98.0 F Pulse Rate 93 96 95 Respiratory Rate 18 Blood Pressure 105/60 Pulse Oximetry 96 Oxygen Delivery Oxygen Flow Rate 12/04/21 20:00 12/04/21 22:00 12/04/21 23:41 Temperature 97.8 F Pulse Rate 95 89 122 H Respiratory Rate 18 22 H Blood Pressure 110/66 P
[2021-12-05] MEDS: ACETAMINOPHEN 325 MG TABLET 650 MG PO ×2 (11:31→18:45)
[2021-12-05 12:05] LABS: Glucose Point of Care 138 mg/dl (65-105)
[2021-12-05 14:17] LABS: Amylase 43 U/L (30-110); Bilirubin,Total 0.6 mg/dL (0.2-1.3); Cholesterol 121 mg/dL (0-200); Glucose 107 mg/dL (65-110); Lactate Dehydrogenase 664 U/L (313-618); Triglycerides 117 mg/dL (<150)
[2021-12-05 14:25] LABS: INR 1.1; Prothrombin Time 14.2 Seconds (11.1-14.7)
--- NOTE | 2021-12-05 15:06 | PCNSR ---
On 12/05/21, the student, Mynor Martin, provided care and completed [facility] documentation on this patient. I have reviewed the student's documentation and agree with the findings.
[2021-12-05 17:21] LABS: Glucose Point of Care 111 mg/dl (65-105)
--- NOTE | 2021-12-05 18:21 | PDONCCN ---
HPI - Date of Consult Date/Time: 12/05/21 18:21 Requesting Physician: Ofelia Bai MD Primary Care Provider: Russ Cruz, - Consult Narrative Reason for consult: Metastatic non-small cell lung cancer Narrative: Kavita Moreno is a 76 year old female with recent diagnosis of metastatic non-small cell lung cancer came in the hospital breath with cough with clear sputum as well as some chest wall discomfort. She is currently on radiation therapy treatment and has [address] chest was done on December 04 that showed large right-sided pleural effusion along with right mainstem bronchus mucus plugging T5 lytic lesion also lytic lesion involving manubrium of the sternum and mediastinal lymphadenopathy enlargement of the adrenal gland suspicious for metastatic disease. Ultrasound-guided thoracentesis of the right lung was attempted yesterday but yielded no fluid. She is feeling little somewhat more comfortable today. Denies any fevers and chills. Denies any excessive shortness of breath but does have some chest discomfort with cough. Review of Systems - Review of Systems All systems reviewed & are unremarkable except as noted in HPI and bel - Neurologic Denies syncope [facility] Medical History: Medical History (Last Updated 12/04/21 @ 19:19 by Oksana Hyde APRN) Asthma Breast cancer Diabetes mellitus Dyslipidemia Hypertension 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 Surgical History: Surgical History (Last Updated 12/04/21 @ 19:19 by Oksana Hyde APRN) History of dilatation and curettage History of right mastectomy History of tubal ligation Family History: Family History (Last Updated 12/04/21 @ 13:38 by TALI Gomez) Father Heart failure Mother COPD (chronic obstructive pulmonary disease) Failure to thrive Sibling Paranoia Glaucoma Gallbladder disease - Social History Social History: Social History (Last Reviewed 12/04/21 @ 12:33 by Regine Maya MD) Others: Spiritual care concerns: No Smoking Status: Smoking status: Former smoker Tobacco type: cigarettes Smoking Pack-years: Smoking packs per day: 1.5 Smoking cigarettes per day: 30.0 Years smoked: 35 Smoking pack-years: 52.50 Meds Home Medications Medication Instructions Recorded Confirmed Type albuterol 90 mcg/actuation aerosol 2 mcg inhalation Q6-8H PRN 11/06/21 12/04/21 History inhaler Shortness Of Breath benzonatate 100 mg capsule 200 mg PO TID PRN Cough 11/06/21 12/04/21 History glipizide 5 mg tablet 5 mg PO BID 11/06/21 12/04/21 History insulin glargine 100 unit/mL 30 unit subcut QAM 11/06/21 12/05/21 History subcutaneous cartridge morphine 15 mg immediate release 7.5 mg PO Q4H PRN Pain 11/06/21 12/04/21 History tablet morphine 15 mg tablet,oral ONLY 15 mg PO Q12H 11/06/21 12/04/21 History (not feeding tubes) duloxetine 30 mg capsule,delayed 1 mg PO DAILY 12/04/21 12/04/21 History release gabapentin 100 mg capsule 100 mg PO TID 12/04/21 12/04/21 History nortriptyline 25 mg capsule 25 mg PO HS 12/04/21 12/04/21 History ondansetron HCl 4 mg tablet 4 mg PO Q6H PRN Nausea 12/04/21 12/04/21 History atorvastatin 40 mg tablet 40 mg PO HS 12/05/21 12/05/21 History cholecalciferol (vitamin D3) 50 50 mcg PO DAILY 12/05/21 12/05/21 History mcg (2,000 unit) tablet Allergies Allergy/AdvReac Type Severity Reaction Status Date / Time No Known Allergies Allergy Verified 12/04/21 09:54 Results - Labs CBC & Chem 7: 12/05/21 04:51 12/05/21 13:58 Labs: Short CBC 12/05/21 Range/Units 04:51 WBC 7.6 (4.5-10.0) K/mm3 Hgb 9.3 L (12.0-15.0) g/dL Hct 30.8 L (37.0-47.0) % Plt Count 337 (150-375) k/mm3 BMP 12/04/21 12/05/21 12/05/21 18:56 04:51 13:58 Sodium 128 L 129 L Potassium 4.4 3.8 Chloride 98 97 L Carbon Dioxide 27 29 BUN 12 9 Creat
[2021-12-05 19:52] LABS: Glucose Point of Care 114 mg/dl (65-105)
[2021-12-05] MEDS: ATORVASTATIN 40 MG TABLET PO (20:02)
[2021-12-05] MEDS: NORTRIPTYLINE HCL 25 MG CAPSULE PO (20:02)
[2021-12-05 21:46] LABS: Appearance Urine Clear (Clear); Bilirubin Urine Negative (Negative); Blood Urine Negative (Negative); Color Urine Yellow (Yellow); Glucose Urine UA Negative (Negative); Ketones Urine Negative (Negative); Leukocyte Esterase Ur 1+ LEU/UL (Negative); Nitrate Urine Negative (Negative); Protein Urine Negative (Negative); Specific Grav Ur 1.015 (1.001-1.035); Urobilinogen Urine 0.2 mg/dL (<2.0); pH Urine 6.5 (5.0-9.0)
[2021-12-05 21:53] LABS: Mucus Urine Rare /lpf; RBC Urine 0-2 /hpf (0-2); Squamous Epithelial Cell Urine Few /hpf (Few)
[2021-12-05 21:55] LABS: Add Urine Microscopic? YES
[2021-12-06] VITALS (17 sets, daily range): BP systolic 102–137; BP diastolic 45–70; PULSE 86–118; RESP 16–20; TEMP 36.1–36.9; O2SAT 93–100
[2021-12-06] MEDS: ACETAMINOPHEN 325 MG TABLET 650 MG PO ×3 (00:26→16:36)
[2021-12-06 04:53] LABS: Basophils Absolute Auto 0.1 K/mm3 (0.0-0.1); Basophils Percent Auto 1.1 % (0.2-1.2); Eosinophils Absolute Auto 0.4 K/mm3 (0-0.3); Hematocrit 30.1 % (37.0-47.0); Hemoglobin 9.3 g/dL (12.0-15.0); Immature Granulocyte Absolute 0.04 K/mm3 (0.00-0.031); Immature Granulocyte Percent A 0.6 % (0-0.5); Lymphocytes Absolute Auto 0.63 K/mm3 (0.9-3.2); Mean Corpuscular HGB Conc 30.9 g/dl (32-36); Mean Corpuscular Hemoglobin 26.5 pg (26-34); Mean Corpuscular Volume 85.8 fl (80-100); Mean Platelet Volume 8.9 fl (7.4-10.4); Monocytes Percent Auto 14.4 % (2.6-8.5); Neutrophils Absolute Auto 4.8 K/mm3 (1.3-6.7); Neutrophils Percent Auto 68.9 % (45.5-73.1); Platelet Count Result 310 k/mm3 (150-375); Red Blood Count 3.51 M/mm3 (4.2-5.4); Red Cell Distribution Width 15.9 % (11.5-14.5)
[2021-12-06 05:05] LABS: CRP 7.7 mg/dL (<1.0); Lactate Dehydrogenase 772 U/L (313-618); Magnesium 1.5 mg/dL (1.6-2.3); Phosphorus 3.5 mg/dL (2.5-4.5)
[2021-12-06 07:59] LABS: Glucose Point of Care 37 mg/dl (65-105)
[2021-12-06 07:59] LABS: Glucose Point of Care 40 mg/dl (65-105)
[2021-12-06 07:59] LABS: Glucose Point of Care 43 mg/dl (65-105)
[2021-12-06] MEDS: dilTIAZem HCL 60 MG TABLET PO ×2 (08:08→20:24)
[2021-12-06] MEDS: BENZONATATE 100 MG CAPSULE 200 MG PO (08:08)
[2021-12-06] MEDS: DULoxetine HCL 30 MG CAPSULE.DR PO (08:08)
[2021-12-06] MEDS: GABAPENTIN 100 MG CAPSULE PO (08:09)
--- NOTE | 2021-12-06 08:35 | PM.IMPN ---
Progress Note: A&P Assessment and Plan (1) Pleural effusion: Code(s): J90 - Pleural effusion, not elsewhere classified Status: Acute (2) Elevated INR: Code(s): R79.1 - Abnormal coagulation profile Status: Acute (3) Dyslipidemia: Code(s): E78.5 - Hyperlipidemia, unspecified Status: Acute (4) Hypertension: Code(s): I10 - Essential (primary) hypertension Status: Acute (5) Diabetes mellitus: Code(s): E11.9 - Type 2 diabetes mellitus without complications Status: Acute (6) Pneumonia: Code(s): J18.9 - Pneumonia, unspecified organism Status: Acute (7) PAF (paroxysmal atrial fibrillation): Code(s): I48.0 - Paroxysmal atrial fibrillation Status: Acute (8) 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: Code(s): C34.81 - 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 Status: Acute (9) Non-small cell lung cancer: Code(s): C34.90 - Malignant neoplasm of unspecified part of unspecified bronchus or lung Status: Acute (10) Hypomagnesemia: Code(s): E83.42 - Hypomagnesemia Status: Acute (11) Non-small cell lung cancer metastatic to bone: Code(s): C34.90 - Malignant neoplasm of unspecified part of unspecified bronchus or lung; C79.51 - Secondary malignant neoplasm of bone Status: Acute Plan 12/05/21 c/s IR for thoracentesis pending oncology eval cardiology managing PAF OAC after thoracentesis 12/06/21 pt to have port inserted tomorrow hypoglycemic this am insulin decreased to 25U glipizide held cont to have cough improved only when supine even on Tessalon Perles,-> dextromethorphan cont on vanco and cefepime cont to have chest pain on MS contin 15 -> 30 PRN coverage for pain will remain the same Subjective Date/time seen: 12/06/21 08:35 cont to have cough improved only when supine and chest pain Exam Narrative: GEN: NAD, AAOx3, cooperative HEENT: NCAT, MMM, EOMI Neck: no JVD Heart: IRR Lungs: RLL w reduced breath sounds Ext: moves all, no cyanosis, no clubbing, no edema Neuro: normal cognition, CN intact, no focal deficits appeciated Psych: mood affect congruent Objective Data Vital Signs Vital Signs: Vital Signs - 24 hr 12/05/21 10:00 12/05/21 12:00 12/05/21 12:00 Temperature Pulse Rate 110 H 96 Respiratory Rate Blood Pressure Pulse Oximetry 96 Oxygen Delivery Nasal Cannula Oxygen Flow Rate 4 12/05/21 12:01 12/05/21 12:40 12/05/21 13:18 Temperature 97.2 F L Pulse Rate 99 99 95 Respiratory Rate 18 15 15 Blood Pressure 114/54 L 110/67 115/61 Pulse Oximetry 100 100 100 Oxygen Delivery Oxygen Flow Rate 12/05/21 14:00 12/05/21 16:00 12/05/21 16:00 Temperature 97.8 F Pulse Rate 98 96 Respiratory Rate 20 Blood Pressure 119/43 L Pulse Oximetry 100 96 Oxygen Delivery Nasal Cannula Oxygen Flow Rate 4 12/05/21 16:00 12/05/21 18:00 12/05/21 19:56 Temperature 98.0 F Pulse Rate 94 99 94 Respiratory Rate 20 Blood Pressure 111/50 L Pulse Oximetry 99 Oxygen Delivery Oxygen Flow Rate 12/05/21 20:00 12/05/21 20:21 12/05/21 20:00 Temperature Pulse Rate 96 Respiratory Rate Blood Pressure Pulse Oximetry 97 100 Oxygen Delivery Nasal Cannula Nasal Cannula Oxygen Flow Rate 4 4 12/05/21 22:00 12/05/21 22:00 12/05/21 23:44 Temperature 97.8 F Pulse Rate 92 78 Respiratory Rate 18 Blood Pressure 117/57 L Pulse Oximetry 97 96 Oxygen Delivery Nasal Cannula Oxygen Flow Rate 3 12/06/21 00:00 12/06/21 00:00 12/06/21 02:00 Temperature Pulse Rate 89 86 Respiratory Rate Blood Pressure Pulse Oximetry 96 Oxygen Delivery Nasal Cannula Oxygen Flow Rate 3 12/06/21 04:00 12/06/21 04:27 12/06/21 04:00 Temperature 97.8 F Pulse Rate 90 114 H Respiratory Rate 18 Blood Pressure 104/63 Pulse Oximetry 99
[2021-12-06 08:54] LABS: Glucose Point of Care 87 mg/dl (65-105)
--- NOTE | 2021-12-06 09:08 | PM.PNCARD ---
Progress Note: A&P Assessment and Plan (1) PAF (paroxysmal atrial fibrillation): Code(s): I48.0 - Paroxysmal atrial fibrillation Status: Acute Assessment and Plan: Probably due to pneumonia. [id number] 3. Given metastatic lung cancer discussed with patient anticoagulation vs aspirin.? If she has no evidence of bleeding and does not require any immediate invasive procedures, would rather she go on anticoagulation with Eliquis 2.5 mg BID. Otherwise would just have her on aspirin 325 mg daily. Eliquis being held due to possible procedures. (2) Hypertension: Code(s): I10 - Essential (primary) hypertension Status: Acute Assessment and Plan: Stable. (3) Pneumonia: Code(s): J18.9 - Pneumonia, unspecified organism Status: Acute Assessment and Plan: On antibiotics as per hospitalist. (4) Pleural effusion: Code(s): J90 - Pleural effusion, not elsewhere classified Status: Acute Assessment and Plan: Unable to remove any fluid with thoracentesis. [facility] Subjective Date/time seen: 12/06/21 09:08 Denies chest pain or sob. Exam Const: General: cooperative, healthy appearing and comfortable Resp: Auscultation: no crackles, no rales, no rhonchi, no wheezes and diminished lung sounds Cardio: Jugular venous distension: no JVD Rate: tachycardic Rhythm: regular rhythm Heart sounds: no murmurs Peripheral pulses: dorsalis pedis present GI: GI Palp: No abdominal tenderness and Yes Soft to palpation Neuro: General: oriented to person, oriented to place and oriented to time Extrem: Right lower extremity: no edema Left lower extremity: no edema Objective Data Vital Signs Vital Signs: Vital Signs - 24 hr 12/05/21 10:00 12/05/21 12:00 12/05/21 12:00 Temperature Pulse Rate 110 H 96 Respiratory Rate Blood Pressure Pulse Oximetry 96 Oxygen Delivery Nasal Cannula Oxygen Flow Rate 4 12/05/21 12:01 12/05/21 12:40 12/05/21 13:18 Temperature 97.2 F L Pulse Rate 99 99 95 Respiratory Rate 18 15 15 Blood Pressure 114/54 L 110/67 115/61 Pulse Oximetry 100 100 100 Oxygen Delivery Oxygen Flow Rate 12/05/21 14:00 12/05/21 16:00 12/05/21 16:00 Temperature 97.8 F Pulse Rate 98 96 Respiratory Rate 20 Blood Pressure 119/43 L Pulse Oximetry 100 96 Oxygen Delivery Nasal Cannula Oxygen Flow Rate 4 12/05/21 16:00 12/05/21 18:00 12/05/21 19:56 Temperature 98.0 F Pulse Rate 94 99 94 Respiratory Rate 20 Blood Pressure 111/50 L Pulse Oximetry 99 Oxygen Delivery Oxygen Flow Rate 12/05/21 20:00 12/05/21 20:21 12/05/21 20:00 Temperature Pulse Rate 96 Respiratory Rate Blood Pressure Pulse Oximetry 97 100 Oxygen Delivery Nasal Cannula Nasal Cannula Oxygen Flow Rate 4 4 12/05/21 22:00 12/05/21 22:00 12/05/21 23:44 Temperature 97.8 F Pulse Rate 92 78 Respiratory Rate 18 Blood Pressure 117/57 L Pulse Oximetry 97 96 Oxygen Delivery Nasal Cannula Oxygen Flow Rate 3 12/06/21 00:00 12/06/21 00:00 12/06/21 02:00 Temperature Pulse Rate 89 86 Respiratory Rate Blood Pressure Pulse Oximetry 96 Oxygen Delivery Nasal Cannula Oxygen Flow Rate 3 12/06/21 04:00 12/06/21 04:27 12/06/21 04:00 Temperature 97.8 F Pulse Rate 90 114 H Respiratory Rate 18 Blood Pressure 104/63 Pulse Oximetry 99 99 Oxygen Delivery Nasal Cannula Oxygen Flow Rate 3 12/06/21 06:00 12/06/21 08:00 12/06/21 08:00 Temperature 97.5 F L Pulse Rate 94 100 Respiratory Rate 18 Blood Pressure 137/70 Pulse Oximetry 100 100 Oxygen Delivery Nasal Cannula Oxygen Flow Rate 3 Intake/Output Intake/Output: Intake & Output 12/03/21 12/04/21 12/05/21 12/06/21 23:59 23:59 23:59 23:59 Intake Total 2891.3 1110 650 Output Total 750 900 Balance 2891.3 360 -250 Meds/Results Medications: Active Medications Gene
[2021-12-06] MEDS: MORPHINE SULFATE (*CRX) 30 MG TABCR PO ×2 (09:46→21:15)
[2021-12-06] MEDS: GABAPENTIN 100 MG CAPSULE 200 MG PO ×3 (09:46→16:37)
[2021-12-06 12:12] LABS: Glucose Point of Care 217 mg/dl (65-105)
[2021-12-06] MEDS: INSULIN ASPART (*BKC) 100 UNITS/ML SUB-Q (13:03)
[2021-12-06 16:31] LABS: Glucose Point of Care 132 mg/dl (65-105)
[2021-12-06] MEDS: BENZONATATE 100 MG CAPSULE PO ×2 (17:02→22:02)
--- NOTE | 2021-12-06 17:34 | PM.CNGS ---
Assessment and Plan Assessment and plan (1) Non-small cell lung cancer metastatic to bone: Code(s): C34.90 - Malignant neoplasm of unspecified part of unspecified bronchus or lung; C79.51 - Secondary malignant neoplasm of bone Status: Acute Assessment and Plan: Patient now agrees to systemic chemotherapy. (2) PAF (paroxysmal atrial fibrillation): Code(s): I48.0 - Paroxysmal atrial fibrillation Status: Acute Assessment and Plan: Apixaban currently on hold. (3) Encounter for insertion of venous access port: Code(s): Z45.2 - Encounter for adjustment and management of vascular access device Status: Acute Assessment and Plan: Plan to proceed with Port-A-Cath placement tomorrow morning under anesthesia and fluoroscopy. History of Present Illness Consult details Consult date: 12/06/21 Requesting physician: Isra Lujan MD Narrative: Patient admitted with multiple systemic symptoms of fatigue and discomfort as well as atrial fibrillation with rapid ventricular rate. She has been receiving radiation therapy for lung cancer. She was seen by Oncology and Port-A-Cath was requested for intravenous chemotherapy. Her apixaban is being held in anticipation of Port-A-Cath placement. [facility] Past Medical History Medical History (Updated 12/06/21 @ 17:38 by Jose Antonio Patel MD) Asthma Breast cancer Diabetes mellitus Dyslipidemia Hypertension 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 Surgical History Surgical History (Updated 12/05/21 @ 18:25 by Isra Lujan MD) History of dilatation and curettage History of right mastectomy History of tubal ligation Family History Family History (Updated 12/04/21 @ 13:38 by TALI Gomez) Father Heart failure Mother COPD (chronic obstructive pulmonary disease) Failure to thrive Sibling Paranoia Glaucoma Gallbladder disease Social History Social History Smoking packs per day: 1.5 Smoking cigarettes per day: 30.0 Years smoked: 35 Smoking pack-years: 52.50 Smoking status: Former smoker Tobacco type: cigarettes Spiritual care concerns: No Meds Home Medications and Allergies Home Medications Medication Instructions Recorded Confirmed Type albuterol 90 mcg/actuation aerosol 2 mcg inhalation Q6-8H PRN 11/06/21 12/04/21 History inhaler Shortness Of Breath benzonatate 100 mg capsule 200 mg PO TID PRN Cough 11/06/21 12/04/21 History glipizide 5 mg tablet 5 mg PO BID 11/06/21 12/04/21 History insulin glargine 100 unit/mL 30 unit subcut QAM 11/06/21 12/05/21 History subcutaneous cartridge morphine 15 mg immediate release 7.5 mg PO Q4H PRN Pain 11/06/21 12/04/21 History tablet morphine 15 mg tablet,oral ONLY 15 mg PO Q12H 11/06/21 12/04/21 History (not feeding tubes) duloxetine 30 mg capsule,delayed 1 mg PO DAILY 12/04/21 12/04/21 History release gabapentin 100 mg capsule 100 mg PO TID 12/04/21 12/04/21 History nortriptyline 25 mg capsule 25 mg PO HS 12/04/21 12/04/21 History ondansetron HCl 4 mg tablet 4 mg PO Q6H PRN Nausea 12/04/21 12/04/21 History atorvastatin 40 mg tablet 40 mg PO HS 12/05/21 12/05/21 History cholecalciferol (vitamin D3) 50 50 mcg PO DAILY 12/05/21 12/05/21 History mcg (2,000 unit) tablet Allergies Allergy/AdvReac Type Severity Reaction Status Date / Time No Known Allergies Allergy Verified 12/04/21 09:54 Vital Signs Vital Signs - 24 hr 12/05/21 18:00 12/05/21 19:56 12/05/21 20:00 Temperature 36.7 C Pulse Rate 99 94 Respiratory Rate 20 Blood Pressure 111/50 L Pulse Oximetry 99 97 Oxygen Delivery Nasal Cannula Oxygen Flow Rate 4 12/05/21 20:21 12/05/21 20:00 12/05/21 22:00 Temperature Pulse Rate 96 92 Respiratory Rate Blood Pressure Pulse Oximetry 100 Oxygen Delivery Nasal Cannula Oxygen Flow Rate 4 12/05/21 22:00 12/05/21
[2021-12-06 18:45] LABS: Vancomycin Trough 5.9 ug/mL (10.0-20.0)
[2021-12-06] MEDS: MAGNESIUM SULF 2 GM/WATER 50ML 2 GM/50 ML BAG IVPB (19:00)
[2021-12-06] MEDS: ATORVASTATIN 40 MG TABLET PO (20:24)
[2021-12-06] MEDS: NORTRIPTYLINE HCL 25 MG CAPSULE PO (20:24)
[2021-12-06 21:17] LABS: Glucose Point of Care 166 mg/dl (65-105)
[2021-12-07] VITALS (21 sets, daily range): BP systolic 91–133; BP diastolic 50–78; PULSE 88–104; RESP 16–22; TEMP 36–37.1; O2SAT 94–100
[2021-12-07 05:07] LABS: Basophils Absolute Auto 0.1 K/mm3 (0.0-0.1); Basophils Percent Auto 1.1 % (0.2-1.2); Eosinophils Absolute Auto 0.3 K/mm3 (0-0.3); Eosinophils Percent Auto 5.5 % (0-4.4); Hematocrit 28.7 % (37.0-47.0); Hemoglobin 8.9 g/dL (12.0-15.0); Immature Granulocyte Absolute 0.03 K/mm3 (0.00-0.031); Immature Granulocyte Percent A 0.5 % (0-0.5); Lymphocytes Absolute Auto 0.56 K/mm3 (0.9-3.2); Mean Corpuscular Hemoglobin 26.2 pg (26-34); Mean Corpuscular Volume 84.4 fl (80-100); Mean Platelet Volume 8.9 fl (7.4-10.4); Monocytes Absolute Auto 0.9 K/mm3 (0.1-0.6); Monocytes Percent Auto 13.9 % (2.6-8.5); Neutrophils Absolute Auto 4.3 K/mm3 (1.3-6.7); Platelet Count Result 288 k/mm3 (150-375); Red Cell Distribution Width 15.8 % (11.5-14.5); White Blood Count 6.2 K/mm3 (4.5-10.0)
[2021-12-07 05:20] LABS: Anion Gap -1 mmol/L (8-16); Blood Urea Nitrogen 6 mg/dL (7-17); Calcium 8.6 mg/dL (8.4-10.2); Carbon Dioxide 33 mmol/L (22-30); Chloride 98 mmol/L (98-107); Estimated CRCL calculation 92 ml/min; Estimated Glomerular Filt Rate > 60; Glucose 158 mg/dL (65-110); Magnesium 1.8 mg/dL (1.6-2.3); Potassium 3.6 mmol/L (3.4-5.0); Sodium 130 mmol/L (137-145)
[2021-12-07] MEDS: CHLORHEXIDINE GLUCONATE 4% SOL 120 ML BTL 1 APPLIC TOPICAL (06:30)
[2021-12-07] MEDS: ACETAMINOPHEN 325 MG TABLET 650 MG PO (07:03)
[2021-12-07] MEDS: BENZONATATE 100 MG CAPSULE PO ×2 (07:06→11:32)
[2021-12-07 07:48] LABS: Glucose Point of Care 135 mg/dl (65-105)
--- NOTE | 2021-12-07 08:01 | PM.PNCARD ---
Progress Note: A&P Assessment and Plan (1) PAF (paroxysmal atrial fibrillation): Code(s): I48.0 - Paroxysmal atrial fibrillation Status: Acute Assessment and Plan: No recurrence. Probably due to pneumonia. [id number] 3. Given metastatic lung cancer discussed with patient anticoagulation vs aspirin.? If she has no evidence of bleeding and does not require any immediate invasive procedures, would rather she go on anticoagulation with Eliquis 2.5 mg BID. Otherwise would just have her on aspirin 325 mg daily. Eliquis being held due to possible procedures including shira cath placement today. If she gets discharged home, have her f/u with me in next 2 weeks. (2) Hypertension: Code(s): I10 - Essential (primary) hypertension Status: Acute Assessment and Plan: Stable. (3) Pneumonia: Code(s): J18.9 - Pneumonia, unspecified organism Status: Acute Assessment and Plan: On antibiotics as per hospitalist. (4) Pleural effusion: Code(s): J90 - Pleural effusion, not elsewhere classified Status: Acute Assessment and Plan: Unable to remove any fluid with thoracentesis. She [facility]. Subjective Date/time seen: 12/07/21 08:01 Denies chest pain or sob. Exam Const: General: cooperative, healthy appearing and comfortable Resp: Auscultation: no crackles, no rales, no rhonchi, no wheezes and diminished lung sounds Cardio: Jugular venous distension: no JVD Rate: tachycardic Rhythm: regular rhythm Heart sounds: no murmurs Peripheral pulses: dorsalis pedis present GI: GI Palp: No abdominal tenderness and Yes Soft to palpation Neuro: General: oriented to person, oriented to place and oriented to time Extrem: Right lower extremity: no edema Left lower extremity: no edema Objective Data Vital Signs Vital Signs: Vital Signs - 24 hr 12/06/21 10:00 12/06/21 12:00 12/06/21 12:00 Temperature 97.8 F Pulse Rate 99 98 Respiratory Rate 20 Blood Pressure 104/45 L Pulse Oximetry 100 100 Oxygen Delivery Nasal Cannula Oxygen Flow Rate 3 12/06/21 12:00 12/06/21 14:00 12/06/21 16:00 Temperature Pulse Rate 96 90 Respiratory Rate Blood Pressure Pulse Oximetry 100 Oxygen Delivery Nasal Cannula Oxygen Flow Rate 3 12/06/21 17:09 12/06/21 16:35 12/06/21 16:00 Temperature 98.2 F Pulse Rate 97 91 Respiratory Rate 20 Blood Pressure 117/53 L Pulse Oximetry 100 100 Oxygen Delivery Nasal Cannula Oxygen Flow Rate 4 12/06/21 18:00 12/06/21 20:00 12/06/21 20:41 Temperature 98.5 F Pulse Rate 96 93 Respiratory Rate 18 Blood Pressure 102/51 L Pulse Oximetry 100 98 Oxygen Delivery Nasal Cannula Oxygen Flow Rate 3 12/06/21 23:44 12/06/21 22:00 12/07/21 00:00 Temperature 97 F L Pulse Rate 90 Respiratory Rate 16 Blood Pressure 106/47 L Pulse Oximetry 100 93 100 Oxygen Delivery Nasal Cannula Nasal Cannula Oxygen Flow Rate 4 4 12/06/21 20:00 12/06/21 22:00 12/06/21 20:00 Temperature Pulse Rate 93 118 H Respiratory Rate Blood Pressure Pulse Oximetry 100 Oxygen Delivery Nasal Cannula Oxygen Flow Rate 3 12/07/21 00:00 12/07/21 02:00 12/07/21 04:01 Temperature 96.8 F L Pulse Rate 89 89 94 Respiratory Rate 16 Blood Pressure 112/57 L Pulse Oximetry 100 Oxygen Delivery Oxygen Flow Rate 12/07/21 04:00 12/07/21 04:00 12/07/21 06:00 Temperature Pulse Rate 91 93 Respiratory Rate Blood Pressure Pulse Oximetry 100 Oxygen Delivery Nasal Cannula Oxygen Flow Rate 3 12/07/21 07:30 Temperature 96.9 F L Pulse Rate 97 Respiratory Rate 20 Blood Pressure 110/50 L Pulse Oximetry 100 Oxygen Delivery Oxygen Flow Rate Intake/Output Intake/Output: Intake & Output 12/04/21 12/05/21 12/06/21 12/07/21 23:59 23:59 23:59 23:59 Intake Total 2891.3 1110 2370 350 Output Total 750 1800 100 Balance 2891.3 360 5
--- NOTE | 2021-12-07 08:53 | WPDANESEPPF ---
Anes - Initial Pre Proc Eval Procedure: Operation Date: 12/07/21 09:30 Proposed Procedures p Placement Bridgette Cath Under Fluoroscopy - Jose Antonio Patel MD Date/Time: 12/07/21 08:53 Surgeon: Ofelia Bai MD Pre Op Diagnosis: afib rvr, sepsis Patient Data Age: 76 Gender: F Height: 1.68 m Weight: 68.6 kg Last Vital Signs Temp 36.1 C L 12/07/21 07:30 Pulse 97 12/07/21 07:30 Resp 20 12/07/21 07:30 BP 110/50 L 12/07/21 07:30 Pulse Ox 100 12/07/21 07:30 O2 Del Method Nasal Cannula 12/07/21 04:00 O2 Flow Rate 3 12/07/21 04:00 Allergies Allergy/AdvReac Type Severity Reaction Status Date / Time No Known Allergies Allergy Verified 12/04/21 09:54 Home Medications Medication Instructions Recorded Confirmed Type albuterol 90 mcg/actuation aerosol 2 mcg inhalation Q6-8H PRN 11/06/21 12/04/21 History inhaler Shortness Of Breath benzonatate 100 mg capsule 200 mg PO TID PRN Cough 11/06/21 12/04/21 History glipizide 5 mg tablet 5 mg PO BID 11/06/21 12/04/21 History insulin glargine 100 unit/mL 30 unit subcut QAM 11/06/21 12/05/21 History subcutaneous cartridge morphine 15 mg immediate release 7.5 mg PO Q4H PRN Pain 11/06/21 12/04/21 History tablet morphine 15 mg tablet,oral ONLY 15 mg PO Q12H 11/06/21 12/04/21 History (not feeding tubes) duloxetine 30 mg capsule,delayed 1 mg PO DAILY 12/04/21 12/04/21 History release gabapentin 100 mg capsule 100 mg PO TID 12/04/21 12/04/21 History nortriptyline 25 mg capsule 25 mg PO HS 12/04/21 12/04/21 History ondansetron HCl 4 mg tablet 4 mg PO Q6H PRN Nausea 12/04/21 12/04/21 History atorvastatin 40 mg tablet 40 mg PO HS 12/05/21 12/05/21 History cholecalciferol (vitamin D3) 50 50 mcg PO DAILY 12/05/21 12/05/21 History mcg (2,000 unit) tablet Laboratory Tests 12/06/21 12/06/21 12/06/21 08:47 08:59 11:05 WBC RBC Hgb Hct MCV MCH MCHC RDW Plt Count MPV Immature Gran % (Auto) Neut % (Auto) Lymph % (Auto) [place] % (Auto) Eos % (Auto) Baso % (Auto) Lymph # (Auto) [place] # (Auto) Eos # (Auto) Baso # (Auto) Abs Immat Gran (auto) Absolute Neuts (auto) Absolute Nucleated RBC Nucleated RBC % Sodium Potassium Chloride Carbon Dioxide Anion Gap BUN Creatinine Estim Creat Clear Calc Estimated GFR Glucose POC Capillary Glucose 87 mg/dl mg/dl 217 mg/dl H mg/dl (65-105) (65-105) Calcium Magnesium Vancomycin Trough Blood Type A Positive Antibody Screen Negative 12/06/21 12/06/21 12/06/21 16:12 16:51 21:11 WBC RBC Hgb Hct MCV MCH MCHC RDW Plt Count MPV Immature Gran % (Auto) Neut % (Auto) Lymph % (Auto) [place] % (Auto) Eos % (Auto) Baso % (Auto) Lymph # (Auto) [place] # (Auto) Eos # (Auto) Baso # (Auto) Abs Immat Gran (auto) Absolute Neuts (auto) Absolute Nucleated RBC Nucleated RBC % Sodium Potassium Chloride Carbon Dioxide Anion Gap BUN Creatinine Estim Creat Clear Calc Estimated GFR Glucose POC Capillary Glucose 132 mg/dl H mg/dl 166 mg/dl H mg/dl (65-105) (65-105) Calcium Magnesium Vancomycin Trough
--- NOTE | 2021-12-07 09:18 | WPDHPUPDATE1 ---
History and Physical Update Update Date/Time: 12/07/21 09:18 History and Physical has been reviewed, including an updated exam of the patient. There are NO changes in the patient's condition. Risks, benefits, and alternatives have been discussed and questions answered. Patient agrees to proceed with procedure.
[2021-12-07] MEDS: ceFAZolin 2 GM/D5W 50 ML 2 GM/50 ML BAG IVPB (09:34)
[2021-12-07] MEDS: LIDO 2%/EPINEPHRINE 1:100,000 20 ML VIAL INFILTRATE (10:00)
[2021-12-07] MEDS: HEPARIN SODIUM 5,000 UNITS/ML VIAL 1000 UNITS IRRIGATION (10:01)
--- NOTE | 2021-12-07 10:18 | W.PM.PROC2 ---
Procedure Note - Detailed Date of Procedure 12/07/21 Pre-op Diagnosis Lung cancer, inadequate venous access Post-op Diagnosis Same Procedure Performed Placement left subclavian vortex Port-A-Cath under fluoroscopy Surgeon Jose Antonio Patel MD Parachutist/Combatant Diver Qualified Negar SNEED Anesthesia General (G IV S) and Local (2% lidocaine with epinephrine) Indications Patient is a 76-year-old woman who has non-small cell lung cancer with metastasis. She has been receiving radiation therapy but has decided to go ahead with chemotherapy. We have been requested to place a Port-A-Cath for administration of chemotherapy. Findings Port-A-Cath tip in the distal SVC near the right atrium by fluoroscopy Description of Procedure Patient was taken to surgery and anesthesia was induced. The left subclavian and left neck areas were prepped and draped. The proposed incision was marked on the skin in the left subclavian region. Local anesthetic was infiltrated into the skin and the subcutaneous. Incision was made deepened through the subcutaneous. Cautery was used for hemostasis. We continued dissection through the pectoralis major fascia. We then undermined the fascia and created a subfascial pocket below the incision. Additional local was infiltrated in the pectoralis major muscle as well as the overlying skin and subcutaneous flap. More local was infiltrated under the left clavicle. The left subclavian vein was then cannulated. A guidewire was able to be passed into the superior vena cava. This was documented by C-arm fluoroscopy. The Port-A-Cath tubing was held over the course of the guidewire wire and measured to the appropriate length. It was cut at the prescribed length. We then passed the introducer and sheath over the guidewire and into the superior vena cava. The guidewire and the introducer were then removed. The Port-A-Cath passed through the sheath into the superior vena cava without difficulty. We then removed the sheath. The Port-A-Cath was placed in the pocket. We used C-arm fluoroscopy and verified the Port-A-Cath was in good position with no kinks in the tubing and the tip of the tubing was in the distal SVC near the right atrial junction. Port-A-Cath was checked. It aspirated blood and flushed easily with heparin. 3-0 silk suture were then used to suture the Port-A-Cath to the pectoralis major muscle. The Port-A-Cath was again checked and again aspirated blood easily and flushed well with heparin. The wound was closed in layers with 2-0 Vicryl running suture. The skin was closed with a running 4-0 Monocryl subcuticular skin suture. Wound was dressed with Exofin surgical adhesive. The patient was awakened and taken to recovery in good condition. Sponge and needle counts were correct x2. Implants Vortex Port-A-Cath Estimated Blood Loss -5 Urine Output 100 Drains No Packing No Pathology None sent Complications No immediate complications Condition Stable Disposition PACU [facility] Billing Surgery - Charge Forward: Surgery Billing (Placement Port-A-Cath under fluoroscopy)
[2021-12-07] MEDS: LACTATED RINGERS 1,000 ML 30 ML IV CONT (10:25)
[2021-12-07 10:40] LABS: Glucose Point of Care 156 mg/dl (65-105)
[2021-12-07] MEDS: GABAPENTIN 100 MG CAPSULE 200 MG PO ×2 (11:32→17:30)
[2021-12-07] MEDS: dilTIAZem HCL 60 MG TABLET PO ×2 (11:32→20:06)
[2021-12-07] MEDS: DULoxetine HCL 30 MG CAPSULE.DR PO (11:32)
[2021-12-07] MEDS: MORPHINE SULFATE (*CRX) 30 MG TABCR PO ×2 (11:32→21:28)
[2021-12-07 11:50] LABS: Glucose Point of Care 144 mg/dl (65-105)
[2021-12-07] MEDS: ENOXAPARIN 40 MG/0.4 ML SYRINGE SUB-Q (12:46)
[2021-12-07 16:22] LABS: Glucose Point of Care 158 mg/dl (65-105)
--- NOTE | 2021-12-07 16:48 | PM.IMPN ---
Progress Note: A&P Assessment and Plan (1) Pleural effusion: Code(s): J90 - Pleural effusion, not elsewhere classified Status: Acute (2) Elevated INR: Code(s): R79.1 - Abnormal coagulation profile Status: Acute (3) Dyslipidemia: Code(s): E78.5 - Hyperlipidemia, unspecified Status: Acute (4) Hypertension: Code(s): I10 - Essential (primary) hypertension Status: Acute (5) Diabetes mellitus: Code(s): E11.9 - Type 2 diabetes mellitus without complications Status: Acute (6) Pneumonia: Code(s): J18.9 - Pneumonia, unspecified organism Status: Acute (7) PAF (paroxysmal atrial fibrillation): Code(s): I48.0 - Paroxysmal atrial fibrillation Status: Acute (8) 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: Code(s): C34.81 - 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 Status: Acute (9) Non-small cell lung cancer: Code(s): C34.90 - Malignant neoplasm of unspecified part of unspecified bronchus or lung Status: Acute (10) Hypomagnesemia: Code(s): E83.42 - Hypomagnesemia Status: Acute (11) Non-small cell lung cancer metastatic to bone: Code(s): C34.90 - Malignant neoplasm of unspecified part of unspecified bronchus or lung; C79.51 - Secondary malignant neoplasm of bone Status: Acute Plan 12/05/21 c/s IR for thoracentesis pending oncology eval cardiology managing PAF OAC after thoracentesis 12/06/21 pt to have port inserted tomorrow hypoglycemic this am insulin decreased to 25U glipizide held cont to have cough improved only when supine even on Tessalon Perles,-> dextromethorphan cont on vanco and cefepime cont to have chest pain on MS contin 15 -> 30 PRN coverage for pain will remain the same 12/07/21 port placed remains in afib on tele resp failure requiring 2L NC +fluid balance 1.6L currently on LR 1L at 60cc/hr pain control inadequate at this time. pt concerned about taking more pain medications combo of morphine and Fentanyl in OR made her hallucinate cont vanc and cefepime BG improved w DC of glipizide decrease of Lantus and use of ISS coverage Subjective Date/time seen: 12/07/21 16:48 chemo port placed today without complication , pt reports pain control inadequate at this time. pt concerned about taking more pain medications combo of morphine and Fentanyl in OR made her hallucinate Exam Narrative: GEN: NAD, AAOx3, cooperative HEENT: NCAT, MMM, EOMI Neck: no JVD Heart: IRR, port in L chest Lungs: RLL w reduced breath sounds Ext: moves all, no cyanosis, no clubbing, no edema Neuro: normal cognition, CN intact, no focal deficits appreciated Psych: mood affect congruent Objective Data Vital Signs Vital Signs: Vital Signs - 24 hr 12/06/21 17:09 12/06/21 18:00 12/06/21 20:00 Temperature 98.5 F Pulse Rate 96 93 Respiratory Rate 18 Blood Pressure 102/51 L Pulse Oximetry 100 100 Oxygen Delivery Nasal Cannula Oxygen Flow Rate 4 12/06/21 20:41 12/06/21 23:44 12/06/21 22:00 Temperature 97 F L Pulse Rate 90 Respiratory Rate 16 Blood Pressure 106/47 L Pulse Oximetry 98 100 93 Oxygen Delivery Nasal Cannula Nasal Cannula Oxygen Flow Rate 3 4 12/07/21 00:00 12/06/21 20:00 12/06/21 22:00 Temperature Pulse Rate 93 118 H Respiratory Rate Blood Pressure Pulse Oximetry 100 Oxygen Delivery Nasal Cannula Oxygen Flow Rate 4 12/06/21 20:00 12/07/21 00:00 12/07/21 02:00 Temperature Pulse Rate 89 89 Respiratory Rate Blood Pressure Pulse Oximetry 100 Oxygen Delivery Nasal Cannula Oxygen Flow Rate 3 12/07/21 04:01 12/07/21 04:00 12/07/21 04:00 Temperature 96.8 F L Pulse Rate 94 91 Respiratory Rate 16 Blood Pressure 112/57 L Pulse Oximetry 100 100 Oxygen Delivery Nasal Cannula Oxygen Flow Rate 3 12/07/21 06:00 12/07/21 07:30 06/0
[2021-12-07] MEDS: ACETAMINOPHEN 500 MG TABLET PO (17:30)
[2021-12-07] MEDS: ATORVASTATIN 40 MG TABLET PO (20:05)
[2021-12-07] MEDS: NORTRIPTYLINE HCL 25 MG CAPSULE PO (20:06)
[2021-12-07 21:36] LABS: Glucose Point of Care 180 mg/dl (65-105)
[2021-12-08] VITALS (10 sets, daily range): BP systolic 107–142; BP diastolic 48–75; PULSE 77–122; RESP 16–20; TEMP 36.1–37.1; O2SAT 97–100
[2021-12-08] MEDS: ACETAMINOPHEN 500 MG TABLET PO (07:44)
--- NOTE | 2021-12-08 07:55 | PM.PNCARD ---
Progress Note: A&P Assessment and Plan (1) PAF (paroxysmal atrial fibrillation): Code(s): I48.0 - Paroxysmal atrial fibrillation Status: Acute Assessment and Plan: No recurrence. Probably due to pneumonia. [id number] 3. Given metastatic lung cancer discussed with patient anticoagulation vs aspirin.? If she has no evidence of bleeding and does not require any immediate invasive procedures, would rather she go on anticoagulation with Eliquis 2.5 mg BID. Otherwise would just have her on aspirin 325 mg daily. Discuss with patient and she opted to go with Aspirin EC 325 mg daily rather than Eliquis. On Diltiazem 60 mg PO BID for BP and HR. If she gets discharged home, have her f/u with me in next 2 weeks. (2) Hypertension: Code(s): I10 - Essential (primary) hypertension Status: Acute Assessment and Plan: Stable. (3) Pneumonia: Code(s): J18.9 - Pneumonia, unspecified organism Status: Acute Assessment and Plan: On antibiotics as per hospitalist. (4) Pleural effusion: Code(s): J90 - Pleural effusion, not elsewhere classified Status: Acute Assessment and Plan: Unable to remove any fluid with thoracentesis. [facility] Subjective Date/time seen: 12/08/21 07:55 No Chest pain or sob. Has some discomfort from shira cath site. Exam Const: General: cooperative, healthy appearing and comfortable Resp: Auscultation: no crackles, no rales, no rhonchi, no wheezes and diminished lung sounds Cardio: Jugular venous distension: no JVD Rate: tachycardic Rhythm: regular rhythm Heart sounds: no murmurs Peripheral pulses: dorsalis pedis present GI: GI Palp: No abdominal tenderness and Yes Soft to palpation Neuro: General: oriented to person, oriented to place and oriented to time Extrem: Right lower extremity: no edema Left lower extremity: no edema Objective Data Vital Signs Vital Signs: Vital Signs - 24 hr 12/07/21 08:27 12/07/21 10:25 12/07/21 10:30 Temperature 97.8 F 97.5 F L Pulse Rate 96 93 95 Respiratory Rate 20 20 20 Blood Pressure 132/59 L 109/55 L 116/65 Pulse Oximetry 100 100 100 Oxygen Delivery Room Air Simple Face Mask Nasal Cannula Oxygen Flow Rate 10 4 12/07/21 10:45 06/03/22 11:00 12/07/21 11:14 Temperature Pulse Rate 104 H 100 98 Respiratory Rate 22 H 20 20 Blood Pressure 116/55 L 99/69 L 133/61 Pulse Oximetry 98 96 98 Oxygen Delivery Nasal Cannula Room Air Room Air Oxygen Flow Rate 4 12/07/21 08:00 12/07/21 12:00 12/07/21 12:00 Temperature Pulse Rate 95 100 Respiratory Rate Blood Pressure Pulse Oximetry 100 Oxygen Delivery Nasal Cannula Oxygen Flow Rate 2 12/07/21 12:04 12/07/21 14:00 12/07/21 08:04 Temperature 97.2 F L 96.9 F L Pulse Rate 98 88 97 Respiratory Rate 22 H 20 Blood Pressure 91/78 L 110/50 L Pulse Oximetry 100 100 Oxygen Delivery Oxygen Flow Rate 12/07/21 16:00 12/07/21 16:00 12/07/21 16:00 Temperature 97.4 F L Pulse Rate 88 89 Respiratory Rate 20 Blood Pressure 111/63 Pulse Oximetry 100 100 Oxygen Delivery Nasal Cannula Oxygen Flow Rate 2 12/07/21 18:00 12/07/21 20:00 12/07/21 20:00 Temperature 98.7 F Pulse Rate 93 100 100 Respiratory Rate 16 16 Blood Pressure 128/64 Pulse Oximetry 94 94 Oxygen Delivery Nasal Cannula Oxygen Flow Rate 2 12/07/21 20:00 12/07/21 22:00 12/08/21 00:00 Temperature 96.9 F L Pulse Rate 92 94 93 Respiratory Rate 16 Blood Pressure 119/55 L Pulse Oximetry 100 Oxygen Delivery Oxygen Flow Rate 12/08/21 00:00 12/08/21 00:00 12/08/21 01:38 Temperature Pulse Rate 93 91 90 Respiratory Rate 16 Blood Pressure Pulse Oximetry 100 Oxygen Delivery Nasal Cannula Oxygen Flow Rate 2 12/08/21 04:00 12/08/21 04:00 12/08/21 04:00 Temperature 96.9 F L Pulse Rate 92 92 93 Respiratory Rate 16 16 Blood Pressure 121/52 L Pulse Oximetry
[2021-12-08 08:12] LABS: Vancomycin Trough 9.2 ug/mL (10.0-20.0)
[2021-12-08 08:25] LABS: Glucose Point of Care 140 mg/dl (65-105)
[2021-12-08] MEDS: dilTIAZem HCL 60 MG TABLET PO ×2 (09:55→21:56)
[2021-12-08] MEDS: ASPIRIN 325 MG ENTERIC TABLET PO (09:55)
[2021-12-08] MEDS: MORPHINE SULFATE (*CRX) 30 MG TABCR PO ×2 (09:55→21:57)
[2021-12-08] MEDS: ENOXAPARIN 40 MG/0.4 ML SYRINGE SUB-Q (09:55)
[2021-12-08] MEDS: GABAPENTIN 100 MG CAPSULE 200 MG PO ×3 (09:55→17:10)
[2021-12-08] MEDS: DULoxetine HCL 30 MG CAPSULE.DR PO (09:55)
[2021-12-08 11:59] LABS: Glucose Point of Care 229 mg/dl (65-105)
[2021-12-08] MEDS: INSULIN ASPART (*BKC) 100 UNITS/ML SUB-Q (12:29)
--- NOTE | 2021-12-08 13:02 | PM.IMPN ---
Progress Note: A&P Assessment and Plan (1) Pleural effusion: Code(s): J90 - Pleural effusion, not elsewhere classified Status: Acute (2) Elevated INR: Code(s): R79.1 - Abnormal coagulation profile Status: Acute (3) Dyslipidemia: Code(s): E78.5 - Hyperlipidemia, unspecified Status: Acute (4) Hypertension: Code(s): I10 - Essential (primary) hypertension Status: Acute (5) Diabetes mellitus: Code(s): E11.9 - Type 2 diabetes mellitus without complications Status: Acute (6) Pneumonia: Code(s): J18.9 - Pneumonia, unspecified organism Status: Acute (7) PAF (paroxysmal atrial fibrillation): Code(s): I48.0 - Paroxysmal atrial fibrillation Status: Acute (8) 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: Code(s): C34.81 - 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 Status: Acute (9) Non-small cell lung cancer: Code(s): C34.90 - Malignant neoplasm of unspecified part of unspecified bronchus or lung Status: Acute (10) Hypomagnesemia: Code(s): E83.42 - Hypomagnesemia Status: Acute (11) Non-small cell lung cancer metastatic to bone: Code(s): C34.90 - Malignant neoplasm of unspecified part of unspecified bronchus or lung; C79.51 - Secondary malignant neoplasm of bone Status: Acute Plan 12/05/21 c/s IR for thoracentesis pending oncology eval cardiology managing PAF OAC after thoracentesis 12/06/21 pt to have port inserted tomorrow hypoglycemic this am insulin decreased to 25U glipizide held cont to have cough improved only when supine even on Tessalon Perles,-> dextromethorphan cont on vanco and cefepime cont to have chest pain on MS contin 15 -> 30 PRN coverage for pain will remain the same 12/07/21 port placed remains in afib on tele resp failure requiring 2L NC +fluid balance 1.6L currently on LR 1L at 60cc/hr pain control inadequate at this time. pt concerned about taking more pain medications combo of morphine and Fentanyl in OR made her hallucinate cont vanc and cefepime BG improved w DC of glipizide decrease of Lantus and use of ISS coverage 12/08/21 doing ok pain better controlled miralax and dulcolax for constipation US to assess for ascites up to chair PT/OT Subjective Date/time seen: 12/08/21 13:02 Patient like to go home but complains of abd distension and has not had a bowel movement. Patient reports her last bowel movement was 13 days ago. Exam Narrative: GEN: NAD, AAOx3, cooperative HEENT: NCAT, MMM, EOMI Neck: no JVD Heart: IRR, port in L chest Lungs: RLL w reduced breath sounds Abd: soft nontender palpable mass supraumbilical area Ext: moves all, no cyanosis, no clubbing, no edema Neuro: normal cognition, CN intact, no focal deficits appreciated Psych: mood affect congruent Objective Data Vital Signs Vital Signs: Vital Signs - 24 hr 12/07/21 14:00 12/07/21 16:00 12/07/21 16:00 Temperature 97.4 F L Pulse Rate 88 88 Respiratory Rate 20 Blood Pressure 111/63 Pulse Oximetry 100 100 Oxygen Delivery Nasal Cannula Oxygen Flow Rate 2 12/07/21 16:00 12/07/21 18:00 12/07/21 20:00 Temperature 98.7 F Pulse Rate 89 93 100 Respiratory Rate 16 Blood Pressure 128/64 Pulse Oximetry 94 Oxygen Delivery Oxygen Flow Rate 12/07/21 20:00 12/07/21 20:00 12/07/21 22:00 Temperature Pulse Rate 100 92 94 Respiratory Rate 16 Blood Pressure Pulse Oximetry 94 Oxygen Delivery Nasal Cannula Oxygen Flow Rate 2 12/08/21 00:00 12/08/21 00:00 12/08/21 00:00 Temperature 96.9 F L Pulse Rate 93 93 91 Respiratory Rate 16 16 Blood Pressure 119/55 L Pulse Oximetry 100 100 Oxygen Delivery Nasal Cannula Oxygen Flow Rate 2 12/08/21 01:38 12/08/21 04:00 12/08/21 04:00 Temperature 96.9 F L Pulse Rate 90 92 92 Respiratory Rate 16 16
--- NOTE | 2021-12-08 15:27 | PC.NURSE ---
Report given to EWELINA Vines with 3 med-surg at 1526. All questions answered and plan of care reviewed. Patient to go to room 319.
[2021-12-08] MEDS: polyethylene glycoL 3350 17 GM POWD.PACK PO (15:38)
[2021-12-08] MEDS: BISACODYL 10 MG SUPPOSITORY RECTAL (15:38)
[2021-12-08] MEDS: DEXTROMETHORPHAN POLISTIREX 60 MG/10 ML SYRINGE PO (15:38)
--- NOTE | 2021-12-08 16:14 | PC.NURSE ---
This patient, Kavita Moreno, was received from [[facility]] on 12/08/21 at 1605. Patient/family oriented to unit policies and routines
[2021-12-08 17:10] LABS: Glucose Point of Care 192 mg/dl (65-105)
[2021-12-08] MEDS: NORTRIPTYLINE HCL 25 MG CAPSULE PO (21:56)
[2021-12-08] MEDS: ATORVASTATIN 40 MG TABLET PO (21:56)
[2021-12-08 22:35] LABS: Glucose Point of Care 172 mg/dl (65-105)
[2021-12-09] VITALS (15 sets, daily range): BP systolic 101–120; BP diastolic 53–72; PULSE 87–160; RESP 16–18; TEMP 36.6–37.1; O2SAT 91–100
[2021-12-09 07:09] LABS: Basophils Absolute Auto 0.1 K/mm3 (0.0-0.1); Basophils Percent Auto 0.8 % (0.2-1.2); Eosinophils Absolute Auto 0.4 K/mm3 (0-0.3); Hematocrit 30.4 % (37.0-47.0); Hemoglobin 9.2 g/dL (12.0-15.0); Immature Granulocyte Absolute 0.04 K/mm3 (0.00-0.031); Immature Granulocyte Percent A 0.5 % (0-0.5); Lymphocytes Absolute Auto 0.91 K/mm3 (0.9-3.2); Lymphocytes Percent Auto 10.6 % (18.3-44.2); Mean Corpuscular HGB Conc 30.3 g/dl (32-36); Mean Corpuscular Hemoglobin 26.5 pg (26-34); Mean Corpuscular Volume 87.6 fl (80-100); Mean Platelet Volume 9.4 fl (7.4-10.4); Monocytes Absolute Auto 1.2 K/mm3 (0.1-0.6); Monocytes Percent Auto 13.6 % (2.6-8.5); Neutrophils Percent Auto 69.5 % (45.5-73.1); Platelet Count Result 258 k/mm3 (150-375); Red Blood Count 3.47 M/mm3 (4.2-5.4); Red Cell Distribution Width 15.7 % (11.5-14.5); White Blood Count 8.6 K/mm3 (4.5-10.0)
[2021-12-09 07:24] LABS: Alanine Aminotransferase 15 U/L (6-35); Albumin Level 2.7 g/dL (3.5-5.1); Alkaline Phosphatase 134 U/L (38-126); Anion Gap 1 mmol/L (8-16); Aspartate Amino Transferase 30 U/L (14-36); Bilirubin,Total 0.4 mg/dL (0.2-1.3); Blood Urea Nitrogen 6 mg/dL (7-17); Calcium 8.7 mg/dL (8.4-10.2); Carbon Dioxide 32 mmol/L (22-30); Chloride 97 mmol/L (98-107); Estimated CRCL calculation 92 ml/min; Estimated Glomerular Filt Rate > 60; Glucose 154 mg/dL (65-110); Magnesium 1.7 mg/dL (1.6-2.3); Phosphorus 2.4 mg/dL (2.5-4.5); Potassium 3.8 mmol/L (3.4-5.0); Sodium 130 mmol/L (137-145)
[2021-12-09 07:58] LABS: Glucose Point of Care 157 mg/dl (65-105)
--- NOTE | 2021-12-09 07:58 | PM.PNCARD ---
Progress Note: A&P Assessment and Plan (1) PAF (paroxysmal atrial fibrillation): Code(s): I48.0 - Paroxysmal atrial fibrillation Status: Acute Assessment and Plan: No recurrence. Probably due to pneumonia. [id number] 3. Given metastatic lung cancer discussed with patient anticoagulation vs aspirin.? If she has no evidence of bleeding and does not require any immediate invasive procedures, would rather she go on anticoagulation with Eliquis 2.5 mg BID. Otherwise would just have her on aspirin 325 mg daily. Discuss with patient and she opted to go with Aspirin EC 325 mg daily rather than Eliquis. On Diltiazem 60 mg PO BID for BP and HR. Will sign off. If she gets discharged home, have her f/u with me in next 2 weeks. (2) Hypertension: Code(s): I10 - Essential (primary) hypertension Status: Acute Assessment and Plan: Stable. (3) Pneumonia: Code(s): J18.9 - Pneumonia, unspecified organism Status: Acute Assessment and Plan: On antibiotics as per hospitalist. (4) Pleural effusion: Code(s): J90 - Pleural effusion, not elsewhere classified Status: Acute Assessment and Plan: Unable to remove any fluid with thoracentesis. She had it [facility]. Subjective Date/time seen: 12/09/21 07:58 No chest pain or sob. Exam Const: General: cooperative, healthy appearing and comfortable Resp: Auscultation: no crackles, no rales, no rhonchi, no wheezes and diminished lung sounds Cardio: Jugular venous distension: no JVD Rate: tachycardic Rhythm: regular rhythm Heart sounds: no murmurs Peripheral pulses: dorsalis pedis present GI: GI Palp: No abdominal tenderness and Yes Soft to palpation Neuro: General: oriented to person, oriented to place and oriented to time Extrem: Right lower extremity: no edema Left lower extremity: no edema Objective Data Vital Signs Vital Signs: Vital Signs - 24 hr 12/08/21 08:00 12/08/21 12:00 12/08/21 08:00 Temperature 97.9 F 98.6 F Pulse Rate 106 H 96 Respiratory Rate 16 18 Blood Pressure 142/75 H 107/48 L Pulse Oximetry 98 98 98 Oxygen Delivery Nasal Cannula Oxygen Flow Rate 2 12/08/21 08:00 12/08/21 10:00 12/08/21 12:00 Temperature Pulse Rate 122 H 108 H 94 Respiratory Rate Blood Pressure Pulse Oximetry Oxygen Delivery Oxygen Flow Rate 12/08/21 14:00 12/08/21 12:00 12/08/21 16:00 Temperature Pulse Rate 100 94 Respiratory Rate Blood Pressure Pulse Oximetry 98 Oxygen Delivery Nasal Cannula Oxygen Flow Rate 3 12/08/21 20:00 12/08/21 20:00 12/09/21 00:00 Temperature 98.8 F 98.7 F Pulse Rate 77 98 Respiratory Rate 20 18 Blood Pressure 126/63 120/57 L Pulse Oximetry 97 97 100 Oxygen Delivery Nasal Cannula Oxygen Flow Rate 2 12/08/21 20:00 12/09/21 00:00 12/09/21 04:00 Temperature 98.2 F Pulse Rate 104 H 96 96 Respiratory Rate 16 Blood Pressure 113/56 L Pulse Oximetry 100 Oxygen Delivery Oxygen Flow Rate 12/09/21 04:00 Temperature Pulse Rate 96 Respiratory Rate Blood Pressure Pulse Oximetry Oxygen Delivery Oxygen Flow Rate Intake/Output Intake/Output: Intake & Output 12/06/21 12/07/21 12/08/21 12/09/21 23:59 23:59 23:59 23:59 Intake Total 2370 1840 1470 Output Total 4960 215 5415 Balance 570 1290 270 Meds/Results Medications: Active Medications Generic Name Dose Route Start Last Admin Trade Name Freq PRN Reason Stop Dose Admin Acetaminophen 500 mg 12/07/21 11:19 12/08/21 07:44 Acetaminophen 500 Mg Tablet PO 500 mg Q6H PRN Administration Mild Pain (1-3) or Fever Hydrocodone Bitart/Acetaminophen 1 tab 12/07/21 11:19 Hydrocodone/Acetaminophen (*Crx) 5-325 Mg Tablet PO Q4H PRN Pain Rated 4-6 Albuterol 2 puff 12/04/21 15:20 Albuterol Sulfate (*Sp) Aerosol 1 Puff INHALATION Q6HRT PRN Shortness Of Breath Aspirin 325 mg
[2021-12-09] MEDS: ENOXAPARIN 40 MG/0.4 ML SYRINGE SUB-Q (09:19)
[2021-12-09] MEDS: GABAPENTIN 100 MG CAPSULE 200 MG PO ×3 (09:19→17:29)
[2021-12-09] MEDS: ASPIRIN 325 MG ENTERIC TABLET PO (09:19)
[2021-12-09] MEDS: dilTIAZem HCL 60 MG TABLET PO ×2 (09:19→21:27)
[2021-12-09] MEDS: MORPHINE SULFATE (*CRX) 30 MG TABCR PO ×2 (09:19→21:50)
[2021-12-09] MEDS: DULoxetine HCL 30 MG CAPSULE.DR PO (09:19)
[2021-12-09] MEDS: DEXTROMETHORPHAN POLISTIREX 60 MG/10 ML SYRINGE PO ×2 (10:24→21:27)
--- NOTE | 2021-12-09 11:46 | PM.IMPN ---
Progress Note: A&P Assessment and Plan (1) Pleural effusion: Code(s): J90 - Pleural effusion, not elsewhere classified Status: Acute (2) Elevated INR: Code(s): R79.1 - Abnormal coagulation profile Status: Acute (3) Dyslipidemia: Code(s): E78.5 - Hyperlipidemia, unspecified Status: Acute (4) Hypertension: Code(s): I10 - Essential (primary) hypertension Status: Acute (5) Diabetes mellitus: Code(s): E11.9 - Type 2 diabetes mellitus without complications Status: Acute (6) Pneumonia: Code(s): J18.9 - Pneumonia, unspecified organism Status: Acute (7) PAF (paroxysmal atrial fibrillation): Code(s): I48.0 - Paroxysmal atrial fibrillation Status: Acute (8) 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: Code(s): C34.81 - 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 Status: Acute (9) Non-small cell lung cancer: Code(s): C34.90 - Malignant neoplasm of unspecified part of unspecified bronchus or lung Status: Acute (10) Hypomagnesemia: Code(s): E83.42 - Hypomagnesemia Status: Acute (11) Non-small cell lung cancer metastatic to bone: Code(s): C34.90 - Malignant neoplasm of unspecified part of unspecified bronchus or lung; C79.51 - Secondary malignant neoplasm of bone Status: Acute Plan 12/05/21 c/s IR for thoracentesis pending oncology eval cardiology managing PAF OAC after thoracentesis 12/06/21 pt to have port inserted tomorrow hypoglycemic this am insulin decreased to 25U glipizide held cont to have cough improved only when supine even on Tessalon Perles,-> dextromethorphan cont on vanco and cefepime cont to have chest pain on MS contin 15 -> 30 PRN coverage for pain will remain the same 12/07/21 port placed remains in afib on tele resp failure requiring 2L NC +fluid balance 1.6L currently on LR 1L at 60cc/hr pain control inadequate at this time. pt concerned about taking more pain medications combo of morphine and Fentanyl in OR made her hallucinate cont vanc and cefepime BG improved w DC of glipizide decrease of Lantus and use of ISS coverage 12/08/21 doing ok pain better controlled miralax and dulcolax for constipation US to assess for ascites up to chair PT/OT 12/09/21 lactulose QID tincture of opium q 4hrs x cough morphine 30mg BID PRN IR pain medications PT/OT dispo: home tomorrow w [facility] Time Spent With Patient Time with patient: Greater than 35 minutes Subjective Date/time seen: 12/09/21 11:46 no BM despite miralax and Dulcolax suppository yesterday. still with cough denies nausea vomiting abd pain + distention Exam Narrative: GEN: NAD, AAOx3, cooperative HEENT: NCAT, MMM, EOMI Neck: no JVD Heart: IRR, port in L chest Lungs: RLL w reduced breath sounds Abd: soft nontender palpable mass supraumbilical area Ext: moves all, no cyanosis, no clubbing, no edema Neuro: normal cognition, CN intact, no focal deficits appreciated Psych: mood affect congruent Objective Data Vital Signs Vital Signs: Vital Signs - 24 hr 12/08/21 12:00 12/08/21 12:00 12/08/21 14:00 Temperature 98.6 F Pulse Rate 96 94 100 Respiratory Rate 18 Blood Pressure 107/48 L Pulse Oximetry 98 Oxygen Delivery Oxygen Flow Rate 12/08/21 12:00 12/08/21 16:00 12/08/21 20:00 Temperature Pulse Rate 94 Respiratory Rate Blood Pressure Pulse Oximetry 98 97 Oxygen Delivery Nasal Cannula Nasal Cannula Oxygen Flow Rate 3 2 12/08/21 20:00 12/09/21 00:00 12/08/21 20:00 Temperature 98.8 F 98.7 F Pulse Rate 77 98 104 H Respiratory Rate 20 18 Blood Pressure 126/63 120/57 L Pulse Oximetry 97 100 Oxygen Delivery Oxygen Flow Rate 12/09/21 00:00 12/09/21 04:00 12/09/21 04:00 Temperature 98.2 F Pulse Rate 96 96 96 Respiratory Rate 16 Blood Pressure 113/56 L Pulse O
[2021-12-09 12:07] LABS: Glucose Point of Care 246 mg/dl (65-105)
[2021-12-09] MEDS: LACTULOSE 20 GM/30 ML UDC PO ×3 (12:37→21:28)
[2021-12-09] MEDS: INSULIN ASPART (*BKC) 100 UNITS/ML SUB-Q ×2 (12:38→17:30)
--- NOTE | 2021-12-09 13:54 | ECG_ITS ---
Measurements Intervals [place] Rate: 148 P: ME: 0 QRS: 46 QRSD: 88 T: 62 QT: 278 QTc: 436 Interpretive Statements ATRIAL FIBRILLATION WITH RAPID VENTRICULAR RESPONSE NONSPECIFIC ST & T-WAVE ABNORMALITY ABNORMAL RHYTHM ECG COMPARED TO ECG 12/04/2021 09:54:44 T-WAVE ABNORMALITY NOW PRESENT Electronically Signed On 12-09-2021 19:26:10 CDT by Wilma Kendall M.D.
--- NOTE | 2021-12-09 15:38 | PC.NURSE ---
Report received at 1512 by EWELINA Laguna with 3 med-surg. Patient to transfer to IMU room 209.
--- NOTE | 2021-12-09 15:39 | PC.NURSE ---
Patient arrived to IMU department at 1535. Patient oriented to unit policies and procedures. Call light within reach.
[2021-12-09] MEDS: AMIODARONE 150 MG/D5W 100 ML 150 MG/100 ML BAG 600 MG IV CONT (15:40)
[2021-12-09] MEDS: AMIODARONE 360 MG/D5W 200 ML 360 MG/200 ML BAG 33.33 MG IV CONT (15:42)
[2021-12-09] MEDS: ACETAMINOPHEN 500 MG TABLET PO (16:01)
[2021-12-09 16:34] LABS: Glucose Point of Care 249 mg/dl (65-105)
[2021-12-09 20:28] LABS: Glucose Point of Care 305 mg/dl (65-105)
[2021-12-09 21:16] LABS: Vancomycin Trough 11.9 ug/mL (10.0-20.0)
[2021-12-09] MEDS: ATORVASTATIN 40 MG TABLET PO (21:27)
[2021-12-09] MEDS: NORTRIPTYLINE HCL 25 MG CAPSULE PO (21:28)
[2021-12-09] MEDS: AMIODARONE 360 MG/D5W 200 ML 360 MG/200 ML BAG 16.67 MG IV CONT (21:52)
--- NOTE | 2021-12-09 22:36 | ECG_ITS ---
Measurements Intervals [place] Rate: 87 P: 47 [place]: 160 QRS: 53 QRSD: 89 T: 57 QT: 357 QTc: 431 Interpretive Statements SINUS RHYTHM NORMAL ECG COMPARED TO ECG 12/09/2021 14:40:37 SINUS RHYTHM NOW PRESENT Electronically Signed On 12-10-2021 10:23:12 CDT by Nnamdi Castro M.D.
[2021-12-09] MEDS: APIXABAN 2.5 MG TABLET PO (22:39)
[2021-12-10] VITALS (18 sets, daily range): BP systolic 101–117; BP diastolic 50–75; PULSE 80–152; RESP 18–20; TEMP 36.1–37; O2SAT 96–100
[2021-12-10 05:17] LABS: Estimated CRCL calculation 92 ml/min; Estimated Glomerular Filt Rate > 60
--- NOTE | 2021-12-10 07:49 | PM.PNCARD ---
Progress Note: A&P Assessment and Plan (1) PAF (paroxysmal atrial fibrillation): Code(s): I48.0 - Paroxysmal atrial fibrillation Status: Acute Assessment and Plan: Had recurrence. Probably due to pneumonia. [id number] 3. Given metastatic lung cancer discussed with patient anticoagulation vs aspirin.? Due to recurrence at 160's bpm, started Amiodarone drip yesterday afternoon, and she is back in sinus rhythm. Will run it until 3 pm for a total of 24 hours then stop drip. Start Amiodarone 200 mg PO every 12 hours starting tonight for 2 weeks then 200 mg daily. Change aspirin to Eliquis 2.5 mg PO BID for anticoagulation and stop Lovenox DVT prophylaxis. Check EKG QT interval. If she gets discharged home later today, have her f/u with me in next 2 weeks. (2) Hypertension: Code(s): I10 - Essential (primary) hypertension Status: Acute Assessment and Plan: Stable. Stop Diltiazem as her BP is normal to low normal on Amiodarone. (3) Pneumonia: Code(s): J18.9 - Pneumonia, unspecified organism Status: Acute Assessment and Plan: On antibiotics as per hospitalist. (4) Pleural effusion: Code(s): J90 - Pleural effusion, not elsewhere classified Status: Acute Assessment and Plan: Unable to remove any fluid with thoracentesis. She had it done twice before at [facility]. Subjective Date/time seen: 12/10/21 07:49 No chest pain or sob. Has cough when she gets up every morning. Exam Const: General: cooperative, healthy appearing and comfortable Resp: Auscultation: no crackles, no rales, no rhonchi, no wheezes and diminished lung sounds Cardio: Jugular venous distension: no JVD Rate: tachycardic Rhythm: regular rhythm Heart sounds: no murmurs Peripheral pulses: dorsalis pedis present GI: GI Palp: No abdominal tenderness and Yes Soft to palpation Neuro: General: oriented to person, oriented to place and oriented to time Extrem: Right lower extremity: no edema Left lower extremity: no edema Objective Data Vital Signs Vital Signs: Vital Signs - 24 hr 12/09/21 08:33 12/09/21 08:40 12/09/21 08:00 Temperature Pulse Rate 111 H Respiratory Rate Blood Pressure Pulse Oximetry Oxygen Delivery Nasal Cannula Nasal Cannula Oxygen Flow Rate 4 4 12/09/21 08:00 12/09/21 12:00 12/09/21 15:42 Temperature Pulse Rate 113 H 160 H Respiratory Rate Blood Pressure Pulse Oximetry 91 Oxygen Delivery Nasal Cannula Oxygen Flow Rate 4 12/09/21 15:40 12/09/21 15:45 12/09/21 16:00 Temperature 98.8 F Pulse Rate 160 H 108 H Respiratory Rate 16 Blood Pressure 101/72 101/72 Pulse Oximetry 100 100 Oxygen Delivery Nasal Cannula Oxygen Flow Rate 3 12/09/21 16:00 12/09/21 18:00 12/09/21 20:00 Temperature 98.0 F Pulse Rate 136 H 130 H 104 H Respiratory Rate 18 Blood Pressure 108/65 Pulse Oximetry 98 Oxygen Delivery Oxygen Flow Rate 12/09/21 21:52 12/09/21 21:10 12/09/21 23:19 Temperature 97.9 F Pulse Rate 91 104 H 87 Respiratory Rate 18 18 Blood Pressure 108/65 104/53 L Pulse Oximetry 98 97 Oxygen Delivery Nasal Cannula Oxygen Flow Rate 3 12/09/21 20:00 12/09/21 23:31 12/09/21 22:00 Temperature Pulse Rate 91 87 87 Respiratory Rate 18 Blood Pressure Pulse Oximetry 97 Oxygen Delivery Nasal Cannula Oxygen Flow Rate 3 12/10/21 00:00 12/10/21 04:00 12/10/21 04:00 Temperature 98.0 F Pulse Rate 80 84 84 Respiratory Rate 18 18 Blood Pressure 110/50 L Pulse Oximetry 98 98 Oxygen Delivery Nasal Cannula Oxygen Flow Rate 3 12/10/21 02:00 12/10/21 04:00 12/10/21 05:22 Temperature Pulse Rate 80 83 81 Respiratory Rate Blood Pressure Pulse Oximetry Oxygen Delivery Oxygen Flow Rate Intake/Output Intake/Output: Intake & Output 12/07/21 12/08/21 12/09/21 12/10/21 23:59 23:59 23:59 23:59 Intake Total 1840 1470 1680 250 Output Tota
[2021-12-10 08:24] LABS: Glucose Point of Care 163 mg/dl (65-105)
[2021-12-10] MEDS: LACTULOSE 20 GM/30 ML UDC PO ×4 (09:49→20:57)
[2021-12-10] MEDS: DEXTROMETHORPHAN POLISTIREX 60 MG/10 ML SYRINGE PO ×2 (09:49→20:57)
[2021-12-10] MEDS: DULoxetine HCL 30 MG CAPSULE.DR PO (09:49)
[2021-12-10] MEDS: APIXABAN 2.5 MG TABLET PO ×2 (09:50→20:57)
[2021-12-10] MEDS: MORPHINE SULFATE (*CRX) 30 MG TABCR PO ×2 (09:51→20:57)
[2021-12-10] MEDS: AMIODARONE 360 MG/D5W 200 ML 360 MG/200 ML BAG 16.67 MG IV CONT (09:59)
[2021-12-10] MEDS: GABAPENTIN 100 MG CAPSULE 200 MG PO ×3 (11:59→18:24)
[2021-12-10] MEDS: INSULIN ASPART (*BKC) 100 UNITS/ML SUB-Q (12:14)
[2021-12-10 12:19] LABS: Glucose Point of Care 230 mg/dl (65-105)
--- NOTE | 2021-12-10 15:18 | PC.NURSE ---
Stopped amiodarone drip at 15:oo per Dr. Boyer order. Start PO amiodarona at 21:00 today
--- NOTE | 2021-12-10 16:26 | PM.IMPN ---
Progress Note: A&P Assessment and Plan (1) Pleural effusion: Code(s): J90 - Pleural effusion, not elsewhere classified Status: Acute (2) Elevated INR: Code(s): R79.1 - Abnormal coagulation profile Status: Acute (3) Dyslipidemia: Code(s): E78.5 - Hyperlipidemia, unspecified Status: Acute (4) Hypertension: Code(s): I10 - Essential (primary) hypertension Status: Acute (5) Diabetes mellitus: Code(s): E11.9 - Type 2 diabetes mellitus without complications Status: Acute (6) Pneumonia: Code(s): J18.9 - Pneumonia, unspecified organism Status: Acute (7) PAF (paroxysmal atrial fibrillation): Code(s): I48.0 - Paroxysmal atrial fibrillation Status: Acute (8) 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: Code(s): C34.81 - 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 Status: Acute (9) Non-small cell lung cancer: Code(s): C34.90 - Malignant neoplasm of unspecified part of unspecified bronchus or lung Status: Acute (10) Hypomagnesemia: Code(s): E83.42 - Hypomagnesemia Status: Acute (11) Non-small cell lung cancer metastatic to bone: Code(s): C34.90 - Malignant neoplasm of unspecified part of unspecified bronchus or lung; C79.51 - Secondary malignant neoplasm of bone Status: Acute Plan 12/05/21 c/s IR for thoracentesis pending oncology eval cardiology managing PAF OAC after thoracentesis 12/06/21 pt to have port inserted tomorrow hypoglycemic this am insulin decreased to 25U glipizide held cont to have cough improved only when supine even on Tessalon Perles,-> dextromethorphan cont on vanco and cefepime cont to have chest pain on MS contin 15 -> 30 PRN coverage for pain will remain the same 12/07/21 port placed remains in afib on tele resp failure requiring 2L NC +fluid balance 1.6L currently on LR 1L at 60cc/hr pain control inadequate at this time. pt concerned about taking more pain medications combo of morphine and Fentanyl in OR made her hallucinate cont vanc and cefepime BG improved w DC of glipizide decrease of Lantus and use of ISS coverage 12/08/21 doing ok pain better controlled miralax and dulcolax for constipation US to assess for ascites up to chair PT/OT 12/09/21 lactulose QID tincture of opium q 4hrs x cough morphine 30mg BID PRN IR pain medications PT/OT dispo: home tomorrow w [facility] 12/10/2021 Patient converted AFib RVR yesterday afternoon and was transferred back to step-down she is currently on an amiodarone drip until she completes 24 hours of care then she will transition to [facility] Card[facility] following Continue lactulose q.i.d. patient is advised to request this medication until she has a bowel movement Continue opium for cough control Continue morphine extended release with short-acting p.r.n. for breakthrough pain Continue PT OT Patient will not consider going to a rehab facility and insists that she will be going home with home health care when cleared for discharge Subjective Date/time seen: 12/10/21 16:26 Patient doing okay she reports improvement of her cough with tincture of opium, unfortunately she still has not had a bowel movement, she is advised to ask for the lactulose every 6 hours until she produces a bowel movement. Positive flatus she denies abdominal pain or vomiting or nausea. Port is in place ready for chemotherapy when heart rate is controlled and patient is cleared for discharge. Has been asks me in the hallway discretely how long his has to live. I advised him this is a question for Dr. Lujan and that he should be able to give further recommendations on prognosis and survival rate. Exam Narrative: GEN: NAD, AAOx3, cooperative HEENT: NCAT, MMM, EOMI Neck: no JVD Heart: IRR, port in L chest Lungs: RLL w reduced breath sounds Abd: soft nontender palpable mass supra
[2021-12-10 17:11] LABS: Glucose Point of Care 191 mg/dl (65-105)
[2021-12-10 19:51] LABS: Glucose Point of Care 253 mg/dl (65-105)
[2021-12-10] MEDS: ONDANSETRON HCL ODT 4 MG TABLET PO (20:57)
[2021-12-10] MEDS: AMIODARONE HCL 200 MG TABLET PO (20:57)
[2021-12-10] MEDS: ATORVASTATIN 40 MG TABLET PO (20:57)
[2021-12-10] MEDS: NORTRIPTYLINE HCL 25 MG CAPSULE PO (20:57)
--- NOTE | 2021-12-10 21:40 | PC.NURSE ---
patient is refusing the enema at this time.
[2021-12-10] MEDS: ACETAMINOPHEN 500 MG TABLET PO (21:54)
[2021-12-11] VITALS (22 sets, daily range): BP systolic 94–126; BP diastolic 51–93; PULSE 72–159; RESP 15–20; TEMP 36.2–37.1; O2SAT 94–100
[2021-12-11] MEDS: MORPHINE SULFATE (*CRX) 15 MG TAB IR PO ×2 (01:07→21:55)
[2021-12-11] MEDS: oxyCODONE HCL (*CRX) 5 MG TAB IR PO ×2 (01:08→21:56)
[2021-12-11 04:55] LABS: Basophils Absolute Auto 0.1 K/mm3 (0.0-0.1); Basophils Percent Auto 0.8 % (0.2-1.2); Eosinophils Absolute Auto 0.4 K/mm3 (0-0.3); Eosinophils Percent Auto 4.1 % (0-4.4); Hematocrit 31.4 % (37.0-47.0); Hemoglobin 9.5 g/dL (12.0-15.0); Immature Granulocyte Absolute 0.05 K/mm3 (0.00-0.031); Immature Granulocyte Percent A 0.5 % (0-0.5); Lymphocytes Absolute Auto 0.82 K/mm3 (0.9-3.2); Lymphocytes Percent Auto 8.5 % (18.3-44.2); Mean Corpuscular HGB Conc 30.3 g/dl (32-36); Mean Corpuscular Hemoglobin 26.2 pg (26-34); Mean Corpuscular Volume 86.7 fl (80-100); Mean Platelet Volume 9.6 fl (7.4-10.4); Monocytes Absolute Auto 1.3 K/mm3 (0.1-0.6); Monocytes Percent Auto 13.8 % (2.6-8.5); Neutrophils Percent Auto 72.3 % (45.5-73.1); Platelet Count Result 322 k/mm3 (150-375); Red Blood Count 3.62 M/mm3 (4.2-5.4); Red Cell Distribution Width 15.7 % (11.5-14.5); White Blood Count 9.7 K/mm3 (4.5-10.0)
[2021-12-11 05:20] LABS: Anion Gap 2 mmol/L (8-16); Blood Urea Nitrogen 4 mg/dL (7-17); Calcium 8.8 mg/dL (8.4-10.2); Carbon Dioxide 33 mmol/L (22-30); Chloride 95 mmol/L (98-107); Estimated CRCL calculation 92 ml/min; Estimated Glomerular Filt Rate > 60; Glucose 218 mg/dL (65-110); Magnesium 1.7 mg/dL (1.6-2.3); Phosphorus 2.7 mg/dL (2.5-4.5); Potassium 3.6 mmol/L (3.4-5.0); Sodium 130 mmol/L (137-145)
[2021-12-11] MEDS: ACETAMINOPHEN 500 MG TABLET PO (06:12)
[2021-12-11] MEDS: ONDANSETRON HCL ODT 4 MG TABLET PO ×2 (06:21→21:55)
--- NOTE | 2021-12-11 06:23 | ECG_ITS ---
Measurements Intervals [place] Rate: 113 P: [place]: 0 QRS: 44 QRSD: 89 T: 51 QT: 320 QTc: 439 Interpretive Statements ATRIAL FIBRILLATION WITH RAPID VENTRICULAR RESPONSE Electronically Signed On 12-11-2021 11:16:50 CDT by Adriano Calloway M.D.
[2021-12-11] MEDS: METOPROLOL TARTRATE 25 MG TABLET PO ×4 (06:35→23:05)
[2021-12-11 07:18] LABS: Glucose Point of Care 249 mg/dl (65-105)
--- NOTE | 2021-12-11 07:39 | PM.PNCARD ---
Progress Note: A&P Assessment and Plan (1) PAF (paroxysmal atrial fibrillation): Code(s): I48.0 - Paroxysmal atrial fibrillation Status: Acute Assessment and Plan: Had recurrence after 24 hours of Amiodarone IV loading. Probably due to pneumonia. [id number] 3. Given metastatic lung cancer discussed with patient anticoagulation vs aspirin.? Due to recurrence at 160's bpm, start Metoprolol Tartate 25 mg PO every 6 hours and restart Amiodarone drip for 24 hours. Then Amiodarone 400 mg PO every 12 hours. On Eliquis 2.5 mg PO BID for anticoagulation. Check EKG QT interval. (2) Hypertension: Code(s): I10 - Essential (primary) hypertension Status: Acute Assessment and Plan: Stable. (3) Pneumonia: Code(s): J18.9 - Pneumonia, unspecified organism Status: Acute Assessment and Plan: On antibiotics as per hospitalist. (4) Pleural effusion: Code(s): J90 - Pleural effusion, not elsewhere classified Status: Acute Assessment and Plan: Unable to remove any fluid with thoracentesis. She had it done twice before at [facility]. Subjective Date/time seen: 12/11/21 07:39 Since going back in atrial fib last night, she felt clammy, nauseated and weak. No chest pain or sob. Exam Const: General: cooperative, healthy appearing and comfortable Resp: Auscultation: no crackles, no rales, no rhonchi, no wheezes and diminished lung sounds Cardio: Jugular venous distension: no JVD Rate: regular rate and tachycardic Rhythm: abnormal rhythm Heart sounds: no murmurs Peripheral pulses: dorsalis pedis present GI: GI Palp: No abdominal tenderness and Yes Soft to palpation Neuro: General: oriented to person, oriented to place and oriented to time Extrem: Right lower extremity: no edema Left lower extremity: no edema Objective Data Vital Signs Vital Signs: Vital Signs - 24 hr 12/10/21 08:28 12/10/21 11:45 12/10/21 08:00 Temperature 97.0 F L 98.6 F Pulse Rate 113 H 93 Respiratory Rate 20 20 Blood Pressure 115/74 117/75 Pulse Oximetry 96 100 100 Oxygen Delivery Room Air Oxygen Flow Rate 12/10/21 12:00 12/10/21 08:00 12/10/21 10:00 Temperature Pulse Rate 94 97 Respiratory Rate Blood Pressure Pulse Oximetry 100 Oxygen Delivery Room Air Oxygen Flow Rate 12/10/21 12:00 12/10/21 14:00 12/10/21 14:46 Temperature Pulse Rate 93 93 Respiratory Rate Blood Pressure Pulse Oximetry 97 Oxygen Delivery Room Air Oxygen Flow Rate 12/10/21 16:33 12/10/21 16:00 12/10/21 18:00 Temperature 96.9 F L Pulse Rate 85 88 92 Respiratory Rate 18 Blood Pressure 110/65 Pulse Oximetry 98 Oxygen Delivery Oxygen Flow Rate 12/10/21 16:00 12/10/21 20:00 12/10/21 20:00 Temperature 97.8 F Pulse Rate 124 H 152 H Respiratory Rate 20 Blood Pressure 101/59 L Pulse Oximetry 100 96 Oxygen Delivery Room Air Oxygen Flow Rate 12/10/21 20:00 12/10/21 20:57 12/10/21 21:39 Temperature Pulse Rate 152 H 152 H Respiratory Rate 20 Blood Pressure Pulse Oximetry 96 100 Oxygen Delivery Room Air Nasal Cannula Oxygen Flow Rate 3 12/10/21 22:00 12/11/21 00:00 12/11/21 00:00 Temperature Pulse Rate 141 H 147 H 147 H Respiratory Rate 20 Blood Pressure Pulse Oximetry 100 Oxygen Delivery Nasal Cannula Oxygen Flow Rate 2 12/11/21 00:00 12/11/21 02:00 12/11/21 04:00 Temperature 98.8 F 97.1 F L Pulse Rate 144 H 146 H 146 H Respiratory Rate 16 16 Blood Pressure 110/66 126/93 H Pulse Oximetry 95 94 Oxygen Delivery Oxygen Flow Rate 12/11/21 04:00 12/11/21 04:00 12/11/21 06:00 Temperature Pulse Rate 135 H 135 H 159 H Respiratory Rate 16 Blood Pressure Pulse Oximetry 94 Oxygen Delivery Nasal Cannula Oxygen Flow Rate 2 12/11/21 06:35 Temperature Pulse Rate 156 H Respiratory Rate Blood Pressure Pulse Oximetry Oxygen Delivery Oxygen Flow Ra
[2021-12-11] MEDS: DULoxetine HCL 30 MG CAPSULE.DR PO (08:22)
[2021-12-11] MEDS: APIXABAN 2.5 MG TABLET PO ×2 (08:22→21:55)
[2021-12-11] MEDS: GABAPENTIN 100 MG CAPSULE 200 MG PO ×3 (08:22→17:13)
[2021-12-11] MEDS: DEXTROMETHORPHAN POLISTIREX 60 MG/10 ML SYRINGE PO ×2 (08:23→21:55)
[2021-12-11] MEDS: LACTULOSE 20 GM/30 ML UDC PO ×4 (08:23→21:55)
[2021-12-11] MEDS: MORPHINE SULFATE (*CRX) 30 MG TABCR PO ×2 (08:28→21:56)
[2021-12-11] MEDS: INSULIN ASPART (*BKC) 100 UNITS/ML SUB-Q ×2 (08:28→18:36)
[2021-12-11] MEDS: AMIODARONE 360 MG/D5W 200 ML 360 MG/200 ML BAG 33.33 MG IV CONT (08:52)
[2021-12-11 11:38] LABS: Glucose Point of Care 200 mg/dl (65-105)
--- NOTE | 2021-12-11 11:49 | PCNFU ---
Nutrition Follow-Up Complete: Inadequate oral intake related to decreased appetite and difficulty swallowing as evidenced by reported wt loss of 34 lbs within the last 6 months. Goal: Continue eating at least 75% of meal and drink Glucerna (kcal 220, pro 9gm per drink) BID. - pt is not meeting goal, will continue current goal Pt current nutrition is DB. Last recorded weight is 66.5 kg, .2kg change since admission. Bowel Motility: none reported Labs Reviewed: Hgb 9.5, Hct 31.4, Na 130, BUN4, Cr.40, Glu 218 Meds Noted: Novolog, Lantus, Zofran Skin: WNL Additional Notes: Pt is showing a decreased appetite. Pt reports she doesn't like the hospital food much, but she does enjoy the breakfast options. She states she is drinking Glucerna shakes BID (220, 10gm protein each). Monitor changes in wt and oral intake % every 3 days.
--- NOTE | 2021-12-11 12:16 | PCNSR ---
On 12/11/21, the student, Diana Martin, provided care and completed [facility] documentation on this patient. I have reviewed the student's documentation and agree with the findings.
--- NOTE | 2021-12-11 17:06 | ECG_ITS ---
Measurements Intervals [place] Rate: 83 P: 49 [place]: 144 QRS: 47 QRSD: 92 T: 52 QT: 378 QTc: 444 Interpretive Statements SINUS RHYTHM NORMAL ECG COMPARED TO ECG 12/11/2021 09:23:40 SINUS RHYTHM REPLACES ATRIAL FIBRILLATION Electronically Signed On 12-12-2021 7:22:38 CDT by Blaine Mcnally M.D.
[2021-12-11] MEDS: AMIODARONE 360 MG/D5W 200 ML 360 MG/200 ML BAG 16.67 MG IV CONT (17:12)
--- NOTE | 2021-12-11 17:49 | PM.IMPN ---
Progress Note: A&P Assessment and Plan (1) Pleural effusion: Code(s): J90 - Pleural effusion, not elsewhere classified Status: Acute (2) Elevated INR: Code(s): R79.1 - Abnormal coagulation profile Status: Acute (3) Dyslipidemia: Code(s): E78.5 - Hyperlipidemia, unspecified Status: Acute (4) Hypertension: Code(s): I10 - Essential (primary) hypertension Status: Acute (5) Diabetes mellitus: Code(s): E11.9 - Type 2 diabetes mellitus without complications Status: Acute (6) Pneumonia: Code(s): J18.9 - Pneumonia, unspecified organism Status: Acute (7) PAF (paroxysmal atrial fibrillation): Code(s): I48.0 - Paroxysmal atrial fibrillation Status: Acute (8) 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: Code(s): C34.81 - 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 Status: Acute (9) Non-small cell lung cancer: Code(s): C34.90 - Malignant neoplasm of unspecified part of unspecified bronchus or lung Status: Acute (10) Hypomagnesemia: Code(s): E83.42 - Hypomagnesemia Status: Acute (11) Non-small cell lung cancer metastatic to bone: Code(s): C34.90 - Malignant neoplasm of unspecified part of unspecified bronchus or lung; C79.51 - Secondary malignant neoplasm of bone Status: Acute Plan 12/05/21 c/s IR for thoracentesis pending oncology eval cardiology managing PAF OAC after thoracentesis 12/06/21 pt to have port inserted tomorrow hypoglycemic this am insulin decreased to 25U glipizide held cont to have cough improved only when supine even on Tessalon Perles,-> dextromethorphan cont on vanco and cefepime cont to have chest pain on MS contin 15 -> 30 PRN coverage for pain will remain the same 12/07/21 port placed remains in afib on tele resp failure requiring 2L NC +fluid balance 1.6L currently on LR 1L at 60cc/hr pain control inadequate at this time. pt concerned about taking more pain medications combo of morphine and Fentanyl in OR made her hallucinate cont vanc and cefepime BG improved w DC of glipizide decrease of Lantus and use of ISS coverage 12/08/21 doing ok pain better controlled miralax and dulcolax for constipation US to assess for ascites up to chair PT/OT 12/09/21 lactulose QID tincture of opium q 4hrs x cough morphine 30mg BID PRN IR pain medications PT/OT dispo: home tomorrow w [facility] 12/10/2021 Patient converted AFib RVR yesterday afternoon and was transferred back to step-down she is currently on an amiodarone drip until she completes 24 hours of care then she will transition to [facility] following Continue lactulose q.i.d. patient is advised to request this medication until she has a bowel movement Continue opium for cough control Continue morphine extended release with short-acting p.r.n. for breakthrough pain Continue PT OT Patient will not consider going to a rehab facility and insists that she will be going home with home health care when cleared for discharge. 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 patient is present in room, gave update and will monitor. Subjective Date/time seen: 12/11/21 17:49 12/10/2021 Patient converted AFib RVR yesterday afternoon and was transferred back t
[2021-12-11 18:32] LABS: Glucose Point of Care 222 mg/dl (65-105)
[2021-12-11 20:08] LABS: Glucose Point of Care 234 mg/dl (65-105)
[2021-12-11] MEDS: ATORVASTATIN 40 MG TABLET PO (21:56)
[2021-12-11] MEDS: NORTRIPTYLINE HCL 25 MG CAPSULE PO (21:56)
[2021-12-12] VITALS (18 sets, daily range): BP systolic 92–117; BP diastolic 41–79; PULSE 58–99; RESP 18–22; TEMP 36.1–36.7; O2SAT 94–100
[2021-12-12] MEDS: METOPROLOL TARTRATE 25 MG TABLET PO (05:15)
[2021-12-12] MEDS: AMIODARONE 360 MG/D5W 200 ML 360 MG/200 ML BAG 16.67 MG IV CONT (06:39)
--- NOTE | 2021-12-12 07:39 | PM.PNCARD ---
Progress Note: A&P Assessment and Plan (1) PAF (paroxysmal atrial fibrillation): Code(s): I48.0 - Paroxysmal atrial fibrillation Status: Acute Assessment and Plan: Back in sinus rhythm after receiving 2nd 24 hour loading of IV Amiodarone. Probably due to pneumonia. [id number] 3. Given metastatic lung cancer discussed with patient anticoagulation vs aspirin.? Stop Amiodarone drip. Start Amiodarone 200 mg PO q12hr for 2 weeks then 200 mg daily. Decrease Metoprolol 12.5 mg every 12 hours. On Eliquis 2.5 mg PO BID for anticoagulation. Check EKG QT interval. If she gets discharged, have her f/u with me in 1-2 weeks. (2) Hypertension: Code(s): I10 - Essential (primary) hypertension Status: Acute Assessment and Plan: Stable to low normal. (3) Pneumonia: Code(s): J18.9 - Pneumonia, unspecified organism Status: Acute Assessment and Plan: On antibiotics as per hospitalist. (4) Pleural effusion: Code(s): J90 - Pleural effusion, not elsewhere classified Status: Acute Assessment and Plan: Unable to remove any fluid with thoracentesis. [facility]. Subjective Date/time seen: 12/12/21 07:39 Reports no chest pain or sob. She noted jerking movements of her upper body. Exam Const: General: cooperative, healthy appearing and comfortable Resp: Auscultation: no crackles, no rales, no rhonchi, no wheezes and diminished lung sounds Cardio: Jugular venous distension: no JVD Rate: regular rate Rhythm: regular rhythm Heart sounds: no murmurs Peripheral pulses: dorsalis pedis present GI: GI Palp: No abdominal tenderness and Yes Soft to palpation Neuro: General: oriented to person, oriented to place and oriented to time Extrem: Right lower extremity: no edema Left lower extremity: no edema Objective Data Vital Signs Vital Signs: Vital Signs - 24 hr 12/11/21 07:59 12/11/21 08:52 12/11/21 08:00 Temperature 97.8 F Pulse Rate 148 H 140 H Respiratory Rate 20 Blood Pressure 113/64 113/64 Pulse Oximetry 100 100 Oxygen Delivery Nasal Cannula Oxygen Flow Rate 2 12/11/21 08:00 12/11/21 12:24 12/11/21 12:00 Temperature 97.8 F Pulse Rate 152 H 129 H 148 H Respiratory Rate 20 Blood Pressure 113/64 Pulse Oximetry 100 Oxygen Delivery Oxygen Flow Rate 12/11/21 12:15 12/11/21 10:00 12/11/21 12:00 Temperature Pulse Rate 119 H 116 H Respiratory Rate Blood Pressure Pulse Oximetry 99 Oxygen Delivery Nasal Cannula Oxygen Flow Rate 3 12/11/21 12:00 12/11/21 14:00 12/11/21 16:00 Temperature Pulse Rate 114 H 108 H 103 H Respiratory Rate 16 Blood Pressure Pulse Oximetry 100 Oxygen Delivery Nasal Cannula Oxygen Flow Rate 2 12/11/21 17:12 12/11/21 17:15 12/11/21 16:00 Temperature 98.2 F Pulse Rate 79 79 80 Respiratory Rate 15 Blood Pressure 95/53 L Pulse Oximetry 100 Oxygen Delivery Oxygen Flow Rate 12/11/21 16:00 12/11/21 18:00 12/11/21 20:00 Temperature 97.8 F Pulse Rate 80 72 75 Respiratory Rate 15 20 Blood Pressure 94/51 L Pulse Oximetry 100 95 Oxygen Delivery Nasal Cannula Oxygen Flow Rate 3 12/11/21 20:34 12/11/21 20:00 12/11/21 20:00 Temperature Pulse Rate 72 72 Respiratory Rate 20 Blood Pressure Pulse Oximetry 95 95 Oxygen Delivery Nasal Cannula Nasal Cannula Oxygen Flow Rate 3 2 12/11/21 22:00 12/11/21 23:05 12/11/21 23:18 Temperature 97.6 F Pulse Rate 77 93 76 Respiratory Rate 18 Blood Pressure 97/55 L Pulse Oximetry 94 Oxygen Delivery Oxygen Flow Rate 12/12/21 00:00 12/12/21 00:00 12/12/21 02:00 Temperature Pulse Rate 78 78 77 Respiratory Rate 18 Blood Pressure Pulse Oximetry 94 Oxygen Delivery Nasal Cannula Oxygen Flow Rate 2 12/12/21 04:00 12/12/21 04:00 12/12/21 04:00 Temperature 98.0 F Pulse Rate 74 74 85 Respiratory Rate 18 18 Blood
[2021-12-12] MEDS: GABAPENTIN 100 MG CAPSULE 200 MG PO ×3 (09:08→17:26)
[2021-12-12] MEDS: AMIODARONE HCL 200 MG TABLET PO ×2 (09:09→20:38)
[2021-12-12] MEDS: APIXABAN 2.5 MG TABLET PO ×2 (09:09→20:38)
[2021-12-12] MEDS: DULoxetine HCL 30 MG CAPSULE.DR PO (09:09)
[2021-12-12] MEDS: DEXTROMETHORPHAN POLISTIREX 60 MG/10 ML SYRINGE PO ×2 (09:10→20:38)
[2021-12-12] MEDS: METOPROLOL TARTRATE 12.5 MG TABLET PO ×2 (09:10→20:37)
[2021-12-12] MEDS: LACTULOSE 20 GM/30 ML UDC PO ×4 (09:10→20:38)
[2021-12-12] MEDS: INSULIN ASPART (*BKC) 100 UNITS/ML SUB-Q ×2 (09:13→12:51)
[2021-12-12] MEDS: MORPHINE SULFATE (*CRX) 30 MG TABCR PO ×2 (09:36→20:38)
[2021-12-12 10:00] LABS: Glucose Point of Care 211 mg/dl (65-105)
[2021-12-12 12:02] LABS: Glucose Point of Care 217 mg/dl (65-105)
[2021-12-12] MEDS: BISACODYL 10 MG SUPPOSITORY RECTAL ×2 (12:11→18:13)
[2021-12-12 16:42] LABS: Glucose Point of Care 186 mg/dl (65-105)
[2021-12-12 20:09] LABS: Glucose Point of Care 201 mg/dl (65-105)
[2021-12-12] MEDS: ATORVASTATIN 40 MG TABLET PO (20:37)
[2021-12-12] MEDS: ONDANSETRON HCL ODT 4 MG TABLET PO (20:38)
[2021-12-12] MEDS: NORTRIPTYLINE HCL 25 MG CAPSULE PO (20:38)
--- NOTE | 2021-12-12 22:21 | PC.NURSE ---
patient c/o of periodic twitching or jerking all over, upper and lower extremities.
[2021-12-13] VITALS (16 sets, daily range): BP systolic 103–158; BP diastolic 38–68; PULSE 74–96; RESP 16–24; TEMP 36.1–36.6; O2SAT 97–100
[2021-12-13 05:25] LABS: Estimated CRCL calculation 76 ml/min; Estimated Glomerular Filt Rate > 60
--- NOTE | 2021-12-13 07:20 | ECG_ITS ---
Measurements Intervals [place] Rate: 85 P: 49 [place]: 144 QRS: 43 QRSD: 92 T: 60 QT: 368 QTc: 438 Interpretive Statements SINUS RHYTHM COMPARED TO ECG 12/11/2021 16:23:52 NO SIGNIFICANT CHANGES Electronically Signed On 12-13-2021 20:33:26 CDT by Wilma Kendall M.D.
[2021-12-13 08:56] LABS: Glucose Point of Care 194 mg/dl (65-105)
--- NOTE | 2021-12-13 09:34 | PM.PNCARD ---
Progress Note: A&P Assessment and Plan (1) PAF (paroxysmal atrial fibrillation): Code(s): I48.0 - Paroxysmal atrial fibrillation Status: Acute Assessment and Plan: Back in sinus rhythm after receiving 2nd 24 hour loading of IV Amiodarone. Probably due to pneumonia. [id number] 3. Given metastatic lung cancer discussed with patient anticoagulation vs aspirin.? Started Amiodarone 200 mg PO q12hr for 2 weeks then 200 mg daily. Decreased Metoprolol 12.5 mg every 12 hours. On Eliquis 2.5 mg PO BID for anticoagulation. Check EKG QT interval. If she gets discharged, have her f/u with me in 1-2 weeks. (2) Hypertension: Code(s): I10 - Essential (primary) hypertension Status: Acute Assessment and Plan: Stable to low normal. (3) Pneumonia: Code(s): J18.9 - Pneumonia, unspecified organism Status: Acute Assessment and Plan: On antibiotics as per hospitalist. (4) Pleural effusion: Code(s): J90 - Pleural effusion, not elsewhere classified Status: Acute Assessment and Plan: Unable to remove any fluid with thoracentesis. She had it done twice before at [facility]. Subjective Date/time seen: 12/13/21 09:34 No chest pain or sob. She has some intermittent jerky movements all over . Exam Const: General: cooperative, healthy appearing and comfortable Resp: Auscultation: no crackles, no rales, no rhonchi, no wheezes and diminished lung sounds Cardio: Jugular venous distension: no JVD Rate: regular rate Rhythm: regular rhythm Heart sounds: no murmurs Peripheral pulses: dorsalis pedis present GI: GI Palp: No abdominal tenderness and Yes Soft to palpation Neuro: General: oriented to person, oriented to place and oriented to time Extrem: Right lower extremity: no edema Left lower extremity: no edema Objective Data Vital Signs Vital Signs: Vital Signs - 24 hr 12/12/21 12:00 12/12/21 12:00 12/12/21 14:00 Temperature 97.3 F L Pulse Rate 58 L 68 81 Respiratory Rate 20 Blood Pressure 94/41 L Pulse Oximetry 100 Oxygen Delivery Oxygen Flow Rate 12/12/21 16:00 12/12/21 16:00 12/12/21 17:20 Temperature Pulse Rate 74 74 78 Respiratory Rate Blood Pressure Pulse Oximetry Oxygen Delivery Oxygen Flow Rate 12/12/21 16:30 12/12/21 20:00 12/12/21 20:37 Temperature 97.5 F L 97.6 F Pulse Rate 81 81 99 Respiratory Rate 22 H 18 Blood Pressure 117/53 L 92/46 L Pulse Oximetry 100 97 Oxygen Delivery Oxygen Flow Rate 12/12/21 20:38 12/12/21 20:00 12/12/21 20:00 Temperature Pulse Rate 99 99 82 Respiratory Rate 18 Blood Pressure Pulse Oximetry 97 Oxygen Delivery Nasal Cannula Oxygen Flow Rate 3 12/12/21 22:00 12/12/21 23:22 12/13/21 00:00 Temperature 97.6 F Pulse Rate 76 83 81 Respiratory Rate 18 Blood Pressure 100/44 L Pulse Oximetry 97 Oxygen Delivery Oxygen Flow Rate 12/13/21 00:00 12/13/21 02:00 12/13/21 03:28 Temperature Pulse Rate 81 79 Respiratory Rate 18 Blood Pressure Pulse Oximetry 97 97 Oxygen Delivery Nasal Cannula Oxygen Flow Rate 3 3 12/13/21 04:00 12/13/21 04:00 12/13/21 04:00 Temperature 97.9 F Pulse Rate 79 78 86 Respiratory Rate 18 18 Blood Pressure 112/54 L Pulse Oximetry 97 97 Oxygen Delivery Nasal Cannula Oxygen Flow Rate 3 12/13/21 05:32 12/13/21 06:00 12/13/21 08:00 Temperature 97.9 F 97.5 F L Pulse Rate 90 85 77 Respiratory Rate 18 24 H Blood Pressure 110/60 158/68 H Pulse Oximetry 99 99 Oxygen Delivery Oxygen Flow Rate Intake/Output Intake/Output: Intake & Output 12/10/21 12/11/21 12/12/21 12/13/21 23:59 23:59 23:59 23:59 Intake Total 1850 1250 1940 300 Output Total 1450 1 1400 Balance 400 1249 540 300 Meds/Results Medications: Active Medications Generic Name Dose Route Start Last Admin Trade Name Freq PRN Reason Stop Dose Admin Acetaminophen 500 mg 12/07/21 11:1
[2021-12-13 09:43] LABS: Anion Gap 7 mmol/L (8-16); Blood Urea Nitrogen 7 mg/dL (7-17); Calcium 10.4 mg/dL (8.4-10.2); Carbon Dioxide 29 mmol/L (22-30); Chloride 92 mmol/L (98-107); Estimated CRCL calculation 76 ml/min; Estimated Glomerular Filt Rate > 60; Glucose 210 mg/dL (65-110); Magnesium 1.8 mg/dL (1.6-2.3); Potassium 3.7 mmol/L (3.4-5.0); Sodium 128 mmol/L (137-145)
[2021-12-13 10:03] LABS: Hematocrit 30.4 % (37.0-47.0); Hemoglobin 9.3 g/dL (12.0-15.0); Mean Corpuscular HGB Conc 30.6 g/dl (32-36); Mean Corpuscular Hemoglobin 26.5 pg (26-34); Mean Corpuscular Volume 86.6 fl (80-100); Mean Platelet Volume 9.6 fl (7.4-10.4); Platelet Count Result 308 k/mm3 (150-375); Red Blood Count 3.51 M/mm3 (4.2-5.4); Red Cell Distribution Width 15.9 % (11.5-14.5); White Blood Count 10.4 K/mm3 (4.5-10.0)
[2021-12-13] MEDS: MORPHINE SULFATE (*CRX) 30 MG TABCR PO (10:43)
[2021-12-13] MEDS: METOPROLOL TARTRATE 12.5 MG TABLET PO ×2 (10:45→20:32)
[2021-12-13] MEDS: GABAPENTIN 100 MG CAPSULE 200 MG PO ×2 (10:45→13:39)
[2021-12-13] MEDS: DULoxetine HCL 30 MG CAPSULE.DR PO (10:46)
[2021-12-13] MEDS: DEXTROMETHORPHAN POLISTIREX 60 MG/10 ML SYRINGE PO (10:48)
[2021-12-13] MEDS: AMIODARONE HCL 200 MG TABLET PO ×2 (10:48→20:32)
[2021-12-13] MEDS: LACTULOSE 20 GM/30 ML UDC PO ×3 (10:49→20:32)
[2021-12-13] MEDS: APIXABAN 2.5 MG TABLET PO ×2 (10:49→20:32)
[2021-12-13 12:37] LABS: Glucose Point of Care 269 mg/dl (65-105)
[2021-12-13] MEDS: INSULIN ASPART (*BKC) 100 UNITS/ML SUB-Q (13:39)
--- NOTE | 2021-12-13 15:57 | PM.IMPN ---
Progress Note: A&P Assessment and Plan (1) Pleural effusion: Code(s): J90 - Pleural effusion, not elsewhere classified Status: Acute (2) Elevated INR: Code(s): R79.1 - Abnormal coagulation profile Status: Acute (3) Dyslipidemia: Code(s): E78.5 - Hyperlipidemia, unspecified Status: Acute (4) Hypertension: Code(s): I10 - Essential (primary) hypertension Status: Acute (5) Diabetes mellitus: Code(s): E11.9 - Type 2 diabetes mellitus without complications Status: Acute (6) Pneumonia: Code(s): J18.9 - Pneumonia, unspecified organism Status: Acute (7) PAF (paroxysmal atrial fibrillation): Code(s): I48.0 - Paroxysmal atrial fibrillation Status: Acute (8) 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: Code(s): C34.81 - 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 Status: Acute (9) Non-small cell lung cancer: Code(s): C34.90 - Malignant neoplasm of unspecified part of unspecified bronchus or lung Status: Acute (10) Hypomagnesemia: Code(s): E83.42 - Hypomagnesemia Status: Acute (11) Non-small cell lung cancer metastatic to bone: Code(s): C34.90 - Malignant neoplasm of unspecified part of unspecified bronchus or lung; C79.51 - Secondary malignant neoplasm of bone Status: Acute Plan 12/05/21 c/s IR for thoracentesis pending oncology eval cardiology managing PAF OAC after thoracentesis 12/06/21 pt to have port inserted tomorrow hypoglycemic this am insulin decreased to 25U glipizide held cont to have cough improved only when supine even on Tessalon Perles,-> dextromethorphan cont on vanco and cefepime cont to have chest pain on MS contin 15 -> 30 PRN coverage for pain will remain the same 12/07/21 port placed remains in afib on tele resp failure requiring 2L NC +fluid balance 1.6L currently on LR 1L at 60cc/hr pain control inadequate at this time. pt concerned about taking more pain medications combo of morphine and Fentanyl in OR made her hallucinate cont vanc and cefepime BG improved w DC of glipizide decrease of Lantus and use of ISS coverage 12/08/21 doing ok pain better controlled miralax and dulcolax for constipation US to assess for ascites up to chair PT/OT 12/09/21 lactulose QID tincture of opium q 4hrs x cough morphine 30mg BID PRN IR pain medications PT/OT dispo: home tomorrow w [facility] 12/10/2021 Patient converted AFib RVR yesterday afternoon and was transferred back to step-down she is currently on an amiodarone drip until she completes 24 hours of care then she will transition to [facility] following Continue lactulose q.i.d. patient is advised to request this medication until she has a bowel movement Continue opium for cough control Continue morphine extended release with short-acting p.r.n. for breakthrough pain Continue PT OT Patient will not consider going to a rehab facility and insists that she will be going home with home health care when cleared for discharge. 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 patient is present in room, gave update and will monitor. 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
[2021-12-13 16:58] LABS: Glucose Point of Care 176 mg/dl (65-105)
[2021-12-13] MEDS: ACETAMINOPHEN 500 MG TABLET PO (20:31)
[2021-12-13] MEDS: ATORVASTATIN 40 MG TABLET PO (20:32)
--- NOTE | 2021-12-13 20:35 | PC.NURSE ---
patient has increased weakness and lethargy. patient is unable to greens picker cup to drink water, patient has increased confusion, and occational jerking or twitching of different body parts.
[2021-12-13 21:54] LABS: Glucose Point of Care 195 mg/dl (65-105)
[2021-12-13 22:49] LABS: Vancomycin Trough 20.5 ug/mL (10.0-20.0)
[2021-12-14] VITALS (14 sets, daily range): BP systolic 111–163; BP diastolic 51–89; PULSE 85–120; RESP 12–22; TEMP 36.2–36.9; O2SAT 93–99
--- NOTE | 2021-12-14 07:53 | PM.PNCARD ---
Progress Note: A&P Assessment and Plan (1) PAF (paroxysmal atrial fibrillation): Code(s): I48.0 - Paroxysmal atrial fibrillation Status: Acute Assessment and Plan: Back in sinus rhythm after receiving 2nd 24 hour loading of IV Amiodarone. Probably due to pneumonia. [id number] 3. Given metastatic lung cancer discussed with patient anticoagulation vs aspirin.? Started Amiodarone 200 mg PO q12hr for 2 weeks then 200 mg daily. Decreased Metoprolol 12.5 mg every 12 hours. On Eliquis 2.5 mg PO BID for anticoagulation. If she gets discharged, have her f/u with me in 1-2 weeks. (2) Hypertension: Code(s): I10 - Essential (primary) hypertension Status: Acute Assessment and Plan: Stable to low normal. (3) Pneumonia: Code(s): J18.9 - Pneumonia, unspecified organism Status: Acute Assessment and Plan: On antibiotics as per hospitalist. (4) Pleural effusion: Code(s): J90 - Pleural effusion, not elsewhere classified Status: Acute Assessment and Plan: Unable to remove any fluid with thoracentesis. [facility] Subjective Date/time seen: 12/14/21 07:53 Denies chest pain or sob. She has frequent jerking movement all over. Exam Const: General: cooperative, healthy appearing and comfortable Resp: Auscultation: no crackles, no rales, no rhonchi, no wheezes and diminished lung sounds Cardio: Jugular venous distension: no JVD Rate: regular rate Rhythm: regular rhythm Heart sounds: no murmurs Peripheral pulses: dorsalis pedis present GI: GI Palp: No abdominal tenderness and Yes Soft to palpation Neuro: General: oriented to person, oriented to place and oriented to time Extrem: Right lower extremity: no edema Left lower extremity: no edema Objective Data Vital Signs Vital Signs: Vital Signs - 24 hr 12/13/21 08:00 12/13/21 12:00 12/13/21 08:00 Temperature 97.5 F L 97 F L Pulse Rate 77 88 Respiratory Rate 24 H 22 H Blood Pressure 158/68 H 103/38 L Pulse Oximetry 99 100 99 Oxygen Delivery Nasal Cannula Oxygen Flow Rate 3 12/13/21 12:00 12/13/21 16:00 12/13/21 16:00 Temperature 97.5 F L Pulse Rate 81 Respiratory Rate 22 H Blood Pressure 103/48 L Pulse Oximetry 100 100 100 Oxygen Delivery Nasal Cannula Nasal Cannula Oxygen Flow Rate 3 3 12/13/21 08:00 12/13/21 10:00 12/13/21 12:00 Temperature Pulse Rate 91 83 82 Respiratory Rate Blood Pressure Pulse Oximetry Oxygen Delivery Oxygen Flow Rate 12/13/21 14:00 12/13/21 16:00 12/13/21 18:00 Temperature Pulse Rate 74 80 80 Respiratory Rate Blood Pressure Pulse Oximetry Oxygen Delivery Oxygen Flow Rate 12/13/21 20:32 12/13/21 20:32 12/13/21 20:00 Temperature 97.5 F L Pulse Rate 96 96 84 Respiratory Rate 16 Blood Pressure 115/47 L Pulse Oximetry 99 Oxygen Delivery Oxygen Flow Rate 12/13/21 20:00 12/13/21 20:00 12/13/21 22:00 Temperature Pulse Rate 96 85 93 Respiratory Rate 16 Blood Pressure Pulse Oximetry 99 Oxygen Delivery Nasal Cannula Oxygen Flow Rate 3 12/13/21 23:02 12/14/21 00:00 12/14/21 00:00 Temperature 98.1 F Pulse Rate 95 95 Respiratory Rate 20 20 Blood Pressure 127/62 Pulse Oximetry 99 97 97 Oxygen Delivery Nasal Cannula Nasal Cannula Oxygen Flow Rate 3 3 12/14/21 00:00 12/14/21 02:00 12/14/21 04:00 Temperature Pulse Rate 92 89 92 Respiratory Rate Blood Pressure Pulse Oximetry Oxygen Delivery Oxygen Flow Rate 12/14/21 04:00 12/14/21 04:00 12/14/21 05:58 Temperature 98.4 F Pulse Rate 92 94 94 Respiratory Rate 20 22 H Blood Pressure 123/63 Pulse Oximetry 97 93 Oxygen Delivery Nasal Cannula Oxygen Flow Rate 3 Intake/Output Intake/Output: Intake & Output 12/11/21 12/12/21 12/13/21 12/14/21 23:59 23:59 23:59 23:59 Intake Total 1250 1940 1280 290 Output Total 1 1400 300 Derrick
[2021-12-14] MEDS: MORPHINE SULFATE (*CRX) 2 MG/ML INJ IV PUSH (08:06)
[2021-12-14] MEDS: INSULIN ASPART (*BKC) 100 UNITS/ML SUB-Q ×3 (08:07→16:12)
[2021-12-14] MEDS: METOPROLOL TARTRATE 12.5 MG TABLET PO ×2 (08:20→21:03)
[2021-12-14] MEDS: DULoxetine HCL 30 MG CAPSULE.DR PO (08:20)
[2021-12-14] MEDS: GABAPENTIN 100 MG CAPSULE 200 MG PO ×2 (08:20→13:01)
[2021-12-14] MEDS: DEXTROMETHORPHAN POLISTIREX 60 MG/10 ML SYRINGE PO ×2 (08:21→21:03)
[2021-12-14] MEDS: AMIODARONE HCL 200 MG TABLET PO ×2 (08:21→21:03)
[2021-12-14] MEDS: APIXABAN 2.5 MG TABLET PO ×2 (08:21→21:03)
[2021-12-14] MEDS: LACTULOSE 20 GM/30 ML UDC PO ×3 (08:21→16:14)
[2021-12-14] MEDS: MORPHINE SULFATE (*CRX) 30 MG TABCR PO (08:22)
[2021-12-14 08:35] LABS: Glucose Point of Care 255 mg/dl (65-105)
[2021-12-14 09:48] LABS: Hematocrit 29.3 % (37.0-47.0); Hemoglobin 8.8 g/dL (12.0-15.0); Mean Corpuscular Volume 86.4 fl (80-100); Mean Platelet Volume 9.7 fl (7.4-10.4); Platelet Count Result 337 k/mm3 (150-375); Red Blood Count 3.39 M/mm3 (4.2-5.4); Red Cell Distribution Width 15.8 % (11.5-14.5); White Blood Count 9.5 K/mm3 (4.5-10.0)
[2021-12-14 10:03] LABS: Anion Gap 4 mmol/L (8-16); Blood Urea Nitrogen 9 mg/dL (7-17); Calcium 10.1 mg/dL (8.4-10.2); Carbon Dioxide 30 mmol/L (22-30); Chloride 93 mmol/L (98-107); Estimated CRCL calculation 64 ml/min; Estimated Glomerular Filt Rate > 60; Glucose 232 mg/dL (65-110); Magnesium 1.7 mg/dL (1.6-2.3); Potassium 3.3 mmol/L (3.4-5.0); Sodium 127 mmol/L (137-145)
[2021-12-14 11:32] LABS: Glucose Point of Care 209 mg/dl (65-105)
--- NOTE | 2021-12-14 11:40 | PCNFU ---
Nutrition Follow-Up Complete: Inadequate oral intake related to decreased appetite and difficulty swallowing as evidenced by reported wt loss of 34 lbs within the last 6 months. Goal: Continue eating at least 75% of meal and drink glucerna (kcal 220, pro 9gm per drink) BID. - Pt is NPO, continue current goal. Pt current nutrition is NPO. Last recorded weight is 68.6 kg, up 2.5kg from late reported wt on 12/13. Bowel Motility: +BM 12/13 Labs Reviewed: Hct 40.8 Meds Noted: Lantus (insulin), Novolog (insulin), Zofran (Nausea) Skin: WNL Additional Notes: Pt ate about 50% of her PO meals on 12/13 and Pt states she refused dinner on 12/13 due to not feeling well. Pt is currently NPO and reported a decreased appetite. Monitor changes in wt and oral intake % every 5 days.
--- NOTE | 2021-12-14 13:21 | PCNSR ---
On 12/14/21, the student, Diana Martin, provided care and completed [facility] documentation on this patient. I have reviewed the student's documentation and agree with the findings.
[2021-12-14 15:10] LABS: Iron 24 ug/dL (37-170)
[2021-12-14 15:19] LABS: Percent Iron Saturation 14 % (20-50)
--- NOTE | 2021-12-14 15:31 | P.PNIM_ITS ---
Progress Note: A&P Assessment and Plan (1) Pleural effusion: Code(s): J90 - Pleural effusion, not elsewhere classified Status: Acute (2) Elevated INR: Code(s): R79.1 - Abnormal coagulation profile Status: Acute (3) Dyslipidemia: Code(s): E78.5 - Hyperlipidemia, unspecified Status: Acute (4) Hypertension: Code(s): I10 - Essential (primary) hypertension Status: Acute (5) Diabetes mellitus: Code(s): E11.9 - Type 2 diabetes mellitus without complications Status: Acute (6) Pneumonia: Code(s): J18.9 - Pneumonia, unspecified organism Status: Acute (7) PAF (paroxysmal atrial fibrillation): Code(s): I48.0 - Paroxysmal atrial fibrillation Status: Acute (8) 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: Code(s): C34.81 - 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 Status: Acute (9) Non-small cell lung cancer: Code(s): C34.90 - Malignant neoplasm of unspecified part of unspecified bronchus or lung Status: Acute (10) Hypomagnesemia: Code(s): E83.42 - Hypomagnesemia Status: Acute (11) Non-small cell lung cancer metastatic to bone: Code(s): C34.90 - Malignant neoplasm of unspecified part of unspecified bronchus or lung; C79.51 - Secondary malignant neoplasm of bone Status: Acute Plan 12/05/21 c/s IR for thoracentesis pending oncology eval cardiology managing PAF OAC after thoracentesis 12/06/21 pt to have port inserted tomorrow hypoglycemic this am insulin decreased to 25U glipizide held cont to have cough improved only when supine even on Tessalon Perles,-> dextromethorphan cont on vanco and cefepime cont to have chest pain on MS contin 15 -> 30 PRN coverage for pain will remain the same 12/07/21 port placed remains in afib on tele resp failure requiring 2L NC +fluid balance 1.6L currently on LR 1L at 60cc/hr pain control inadequate at this time. pt concerned about taking more pain medications combo of morphine and Fentanyl in OR made her hallucinate cont vanc and cefepime BG improved w DC of glipizide decrease of Lantus and use of ISS coverage 12/08/21 doing ok pain better controlled miralax and dulcolax for constipation US to assess for ascites up to chair PT/OT 12/09/21 lactulose QID tincture of opium q 4hrs x cough morphine 30mg BID PRN IR pain medications PT/OT dispo: home tomorrow w [facility] 12/10/2021 Patient converted AFib RVR yesterday afternoon and was transferred back to step-down she is currently on an amiodarone drip until she completes 24 hours of care then she will transition to orals Cardiology following Continue lactulose q.i.d. patient is advised to request this medication until she has a bowel movement Continue opium for cough control Continue morphine extended release with short-acting p.r.n. for breakthrough pain Continue PT OT Patient will not consider going to a rehab facility and insists that she will be going home with home health care when cleared for discharge. 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
[2021-12-14 15:35] LABS: Lactate Dehydrogenase 590 U/L (313-618)
[2021-12-14 16:09] LABS: Glucose Point of Care 314 mg/dl (65-105)
[2021-12-14 16:47] LABS: Folic Acid 7.4 ng/mL (2.76->20); Vitamin B12 > 1000.0 pg/mL (239-931)
--- NOTE | 2021-12-14 17:56 | WPDONCPN ---
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 Status post radiation therapy. MediPort has been placed. Plan was to start chemotherapy with Carboplatinum Taxol and Keytruda after the discharge. Patient remains quite anemic. We might be able to start Keytruda as a single agent and at chemotherapy later based on her blood results. I have discussed patient care with and the daughter on the phone as well. Anemia. Anemia workup has been ordered. Jerking and shaking movements. This could be secondary to morphine. I will reduce morphine dose to 15 mg q.12 hours and then eventually discontinue. She can continue short-acting morphine as needed. Malignant pleural effusion. Status post thoracentesis. Atrial fibrillation. Cardiology is following. Hallucinations. This is secondary to morphine. We will reduce the dose. Eventually we can discontinue morphine. - Time Spent With Patient Total time spent is greater than 50% in coordination of care (as documented) at patient's floor/unit and/or counseling patient: 25 - 35 minutes Subjective Interval history: Metastatic non-small cell lung cancer Anemia Atrial fibrillation Pneumonia Shaking movements Review of Systems - Review of Systems Patient looks quite tired and fatigue and has been having some jerking movements. She denies any headache. He complain of bilateral rib cage pain and abdominal pain. No fevers and chills. No other new complaints. - Neurologic Denies syncope Exam Vital signs: Temp Pulse Resp BP Pulse Ox O2 Del Method O2 Flow Rate 36.6 C 98 16 126/54 L 97 Nasal Cannula 1 12/14/21 16:00 12/14/21 16:12/14/21 16:12/14/21 16:12/14/21 16:12/14/21 16:12/14/21 16:00 Narrative: Lungs are clear to auscultation bilaterally Cardiovascular regular rate rhythm no murmurs Abdomen tender bowel sounds are positive Extremities no edema Shaking and jerking of the upper extremities noted PN: Objective Data - Labs CBC & Chem 7: 12/14/21 09:30 12/14/21 09:30 Labs: Laboratory Results - last 24 hr 12/13/21 12/13/21 12/14/21 20:06 21:20 08:02 WBC RBC Hgb Hct MCV MCH MCHC RDW Plt Count MPV Sodium Potassium Chloride Carbon Dioxide Anion Gap BUN Creatinine Estim Creat Clear Calc Estimated GFR Glucose POC Capillary Glucose 195 H 255 H Calcium Magnesium Iron TIBC % Saturation Ferritin Lactate Dehydrogenase Vitamin B12 Folate Vancomycin Trough 20.5 H 12/14/21 12/14/21 12/14/21 09:30 09:30 11:26 WBC 9.5 RBC 3.39 L Hgb 8.8 L Hct 29.3 L MCV 86.4 MCH 26.0 MCHC 30.0 L RDW 15.8 H Plt Count 337 MPV 9.7 Sodium 127 L Potassium 3.3 L Chloride 93 L Carbon Dioxide 30 Anion Gap 4 L BUN 9 Creatinine 0.60 L Estim Creat Clear Calc 64 Estimated GFR > 60 Glucose 232 H POC Capillary Glucose 209 H Calcium 10.1 Magnesium 1.7 Iron TIBC % Saturation Ferritin Lactate Dehydrogenase Vitamin B12 Folate Vancomycin Trough 12/14/21 12/14/21 12/14/21 14:51 14:51 16:06 WBC RBC Hgb Hct MCV MCH MCHC RDW Plt Count MPV Sodium Potassium Chloride Carbon Dioxide Anion Gap BUN Creatinine Estim Creat Clear Calc Estimated GFR Glucose POC Capillary Glucose 314 H Calcium Magnesium Iron 24 L TIBC 169 L % Saturation 14 L Ferritin 678.00 H Lactate Dehydrogenase 590 Vitamin B12 > 1000.0 H Folate 7.4 Vancomycin Trough
[2021-12-14] MEDS: NORTRIPTYLINE HCL 25 MG CAPSULE PO (21:03)
[2021-12-14] MEDS: ATORVASTATIN 40 MG TABLET PO (21:03)
[2021-12-14] MEDS: MORPHINE SULFATE (*CRX) 15 MG TABCR PO (21:06)
[2021-12-14 21:17] LABS: Glucose Point of Care 202 mg/dl (65-105)
[2021-12-15] VITALS (19 sets, daily range): BP systolic 142–157; BP diastolic 68–81; PULSE 79–111; RESP 18–24; TEMP 36.1–37.1; O2SAT 96–100
[2021-12-15 05:50] LABS: Hematocrit 31.3 % (37.0-47.0); Hemoglobin 9.7 g/dL (12.0-15.0); Mean Corpuscular Hemoglobin 25.8 pg (26-34); Mean Corpuscular Volume 83.2 fl (80-100); Mean Platelet Volume 9.7 fl (7.4-10.4); Platelet Count Result 398 k/mm3 (150-375); Red Blood Count 3.76 M/mm3 (4.2-5.4); Red Cell Distribution Width 15.9 % (11.5-14.5); White Blood Count 11.2 K/mm3 (4.5-10.0)
[2021-12-15 06:02] LABS: Anion Gap 4 mmol/L (8-16); Blood Urea Nitrogen 7 mg/dL (7-17); Calcium 10.1 mg/dL (8.4-10.2); Carbon Dioxide 31 mmol/L (22-30); Chloride 93 mmol/L (98-107); Estimated CRCL calculation 64 ml/min; Estimated Glomerular Filt Rate > 60; Glucose 249 mg/dL (65-110); Magnesium 1.6 mg/dL (1.6-2.3); Potassium 3.4 mmol/L (3.4-5.0); Sodium 128 mmol/L (137-145)
[2021-12-15 07:54] LABS: Glucose Point of Care 260 mg/dl (65-105)
[2021-12-15] MEDS: GABAPENTIN 100 MG CAPSULE 200 MG PO ×3 (09:26→17:35)
[2021-12-15] MEDS: AMIODARONE HCL 200 MG TABLET PO ×2 (09:27→20:45)
[2021-12-15] MEDS: APIXABAN 2.5 MG TABLET PO ×2 (09:27→20:45)
[2021-12-15] MEDS: METOPROLOL TARTRATE 12.5 MG TABLET PO ×2 (09:27→20:46)
[2021-12-15] MEDS: DULoxetine HCL 30 MG CAPSULE.DR PO (09:27)
[2021-12-15] MEDS: INSULIN ASPART (*BKC) 100 UNITS/ML SUB-Q ×3 (09:33→17:35)
[2021-12-15] MEDS: MORPHINE SULFATE (*CRX) 15 MG TABCR PO (09:35)
[2021-12-15] MEDS: DEXTROMETHORPHAN POLISTIREX 60 MG/10 ML SYRINGE PO (11:49)
[2021-12-15 12:02] LABS: Glucose Point of Care 241 mg/dl (65-105)
--- NOTE | 2021-12-15 12:33 | PCPTNOTE ---
Physical therapy initial evaluation attempted, pt got to EOB and started to have uncontrollable jerking movements. Pt was returned to be d/t safety concerns. Will continue to follow.
--- NOTE | 2021-12-15 13:27 | PCOTNOTE ---
Nursing instructed to hold on seeing patient today due to sudden jerky movements impacting patient's safety.
[2021-12-15 17:24] LABS: Glucose Point of Care 227 mg/dl (65-105)
[2021-12-15] MEDS: LACTULOSE 20 GM/30 ML UDC PO (17:36)
[2021-12-15 17:42] LABS: Vancomycin Trough 10.5 ug/mL (10.0-20.0)
[2021-12-15] MEDS: ATORVASTATIN 40 MG TABLET PO (20:45)
[2021-12-15 20:56] LABS: Glucose Point of Care 261 mg/dl (65-105)
[2021-12-15] MEDS: MORPHINE SULFATE (*CRX) 2 MG/ML INJ IV PUSH (23:41)
[2021-12-16] VITALS (21 sets, daily range): BP systolic 117–147; BP diastolic 64–79; PULSE 78–146; RESP 16–24; TEMP 36.4–36.8; O2SAT 96–99
[2021-12-16 01:13] LABS: Appearance Urine Clear (Clear); Bilirubin Urine Negative (Negative); Blood Urine Trace-lysed (Negative); Color Urine Yellow (Yellow); Glucose Urine UA 2+ mg/dL (Negative); Ketones Urine Negative (Negative); Leukocyte Esterase Ur Negative LEU/UL (Negative); Nitrate Urine Negative (Negative); Protein Urine 1+ mg/dL (Negative); Urobilinogen Urine 0.2 mg/dL (<2.0)
[2021-12-16 01:17] LABS: Bacteria Urine Trace /hpf; Mucus Urine Rare /lpf; RBC Urine 0-2 /hpf (0-2); WBC Urine 0-3 /hpf
[2021-12-16 01:28] LABS: Add Urine Microscopic? YES
--- NOTE | 2021-12-16 03:22 | ECG_ITS ---
Measurements Intervals [place] Rate: 150 P: DC: 0 QRS: 41 QRSD: 89 T: 66 QT: 312 QTc: 493 Interpretive Statements ATRIAL FIBRILLATION WITH RAPID VENTRICULAR RESPONSE NONSPECIFIC ST ABNORMALITY ABNORMAL RHYTHM ECG COMPARED TO ECG 12/13/2021 09:15:31 ATRIAL FIBRILLATION NOW PRESENT ST (T WAVE) DEVIATION NOW PRESENT Electronically Signed On 12-16-2021 11:06:37 CDT by Nnamdi Castro M.D.
[2021-12-16] MEDS: dilTIAZem 100 MG/100 ML 100 MG/100 ML BAG IV CONT (03:50)
[2021-12-16 05:17] LABS: Hematocrit 35.6 % (37.0-47.0); Hemoglobin 10.2 g/dL (12.0-15.0); Mean Corpuscular HGB Conc 28.7 g/dl (32-36); Mean Corpuscular Hemoglobin 25.7 pg (26-34); Mean Corpuscular Volume 89.7 fl (80-100); Mean Platelet Volume 9.6 fl (7.4-10.4); Platelet Count Result 445 k/mm3 (150-375); Red Blood Count 3.97 M/mm3 (4.2-5.4); Red Cell Distribution Width 16.2 % (11.5-14.5); White Blood Count 13.8 K/mm3 (4.5-10.0)
--- NOTE | 2021-12-16 05:25 | PC.NURSE ---
Pt c/o abdominal pain, attempts to urinate on bed santos were minimally successful 50-100mls. Bladder scan showed >999. Order for carver catheter and ua obtained. 950 mls out upon insertion of carver. Carver clamped for an hour. After unclamping carver yielded another 950 mls. Carver reclamped. Upon returning an hour later, found carver unclamped after pt was rolling in bed. At that point there appeared to be only about 300mls in the carver bag. Urine was initially clear upon insertion but became cloudy as bladder emptied.
[2021-12-16 05:35] LABS: Anion Gap 9 mmol/L (8-16); Blood Urea Nitrogen 9 mg/dL (7-17); Calcium 9.6 mg/dL (8.4-10.2); Carbon Dioxide 28 mmol/L (22-30); Chloride 93 mmol/L (98-107); Estimated CRCL calculation 64 ml/min; Estimated Glomerular Filt Rate > 60; Glucose 266 mg/dL (65-110); Magnesium 1.6 mg/dL (1.6-2.3); Potassium 3.6 mmol/L (3.4-5.0); Sodium 130 mmol/L (137-145)
[2021-12-16] MEDS: MORPHINE SULFATE (*CRX) 15 MG TABCR PO ×2 (06:09→21:00)
[2021-12-16 08:05] LABS: Glucose Point of Care 298 mg/dl (65-105)
--- NOTE | 2021-12-16 08:33 | PCPTNOTE ---
Initial evaluation attempted again, pt refused d/t exhaustion and severe stomach pain. RN notified.
--- NOTE | 2021-12-16 08:34 | PM.PNCARD ---
Progress Note: A&P Assessment and Plan (1) PAF (paroxysmal atrial fibrillation): Code(s): I48.0 - Paroxysmal atrial fibrillation Status: Acute Assessment and Plan: Breakthrough to atrial fib for 3rd time, back in sinus rhythm. Probably due to pneumonia. [id number] 3. Given metastatic lung cancer discussed with patient anticoagulation vs aspirin.? On Amiodarone 200 mg PO q12hr for 2 weeks then 200 mg daily. Increase Metoprolol 25 mg every 12 hours. On Eliquis 2.5 mg PO BID for anticoagulation. Stop Diltiazem drip now. Start Diltiazem 60 mg every 12 hours for rate control when she does have breakthrough atrial fib. Start MagOx 400 mg daily for Mag 1.6. If she gets discharged, have her f/u with me in 1-2 weeks. (2) Hypertension: Code(s): I10 - Essential (primary) hypertension Status: Acute Assessment and Plan: Stable. (3) Pneumonia: Code(s): J18.9 - Pneumonia, unspecified organism Status: Acute Assessment and Plan: On antibiotics as per hospitalist. (4) Pleural effusion: Code(s): J90 - Pleural effusion, not elsewhere classified Status: Acute Assessment and Plan: Unable to remove any fluid with thoracentesis. She had it [facility]. Subjective Date/time seen: 12/16/21 08:34 Denies chest pain or sob. Exam Const: General: cooperative, healthy appearing and comfortable Resp: Auscultation: no crackles, no rales, no rhonchi, no wheezes and diminished lung sounds Cardio: Jugular venous distension: no JVD Rate: tachycardic Rhythm: regular rhythm Heart sounds: no murmurs Peripheral pulses: dorsalis pedis present GI: GI Palp: No abdominal tenderness and Yes Soft to palpation Neuro: General: oriented to person, oriented to place and oriented to time Extrem: Right lower extremity: no edema Left lower extremity: no edema Objective Data Vital Signs Vital Signs: Vital Signs - 24 hr 12/15/21 09:27 12/15/21 09:27 12/15/21 10:00 Temperature Pulse Rate 94 94 87 Respiratory Rate Blood Pressure Pulse Oximetry Oxygen Delivery Oxygen Flow Rate 12/15/21 12:00 12/15/21 12:00 12/15/21 12:00 Temperature 97 F L Pulse Rate 81 81 84 Respiratory Rate 24 H 24 H Blood Pressure 149/81 H Pulse Oximetry 97 100 Oxygen Delivery Nasal Cannula Oxygen Flow Rate 1 12/15/21 14:00 12/15/21 15:36 12/15/21 16:00 Temperature Pulse Rate 82 90 Respiratory Rate Blood Pressure Pulse Oximetry 97 Oxygen Delivery Nasal Cannula Oxygen Flow Rate 3 12/15/21 16:23 12/15/21 16:00 12/15/21 18:00 Temperature 97.5 F L Pulse Rate 90 91 79 Respiratory Rate 24 H 22 H Blood Pressure 142/68 H Pulse Oximetry 97 99 Oxygen Delivery Nasal Cannula Oxygen Flow Rate 1 12/15/21 20:00 12/15/21 20:45 12/15/21 20:46 Temperature 98.8 F Pulse Rate 100 97 97 Respiratory Rate 20 Blood Pressure 151/77 H Pulse Oximetry 97 Oxygen Delivery Oxygen Flow Rate 12/15/21 20:15 12/15/21 20:00 12/15/21 23:52 Temperature Pulse Rate Respiratory Rate Blood Pressure Pulse Oximetry 96 97 99 Oxygen Delivery Nasal Cannula Nasal Cannula Nasal Cannula Oxygen Flow Rate 3 1 1 12/16/21 00:00 12/15/21 20:00 12/15/21 22:00 Temperature 98.3 F Pulse Rate 95 111 H 93 Respiratory Rate 20 Blood Pressure 138/69 Pulse Oximetry 99 Oxygen Delivery Oxygen Flow Rate 12/16/21 00:00 12/16/21 02:00 12/16/21 01:35 Temperature Pulse Rate 90 131 H 136 H Respiratory Rate Blood Pressure Pulse Oximetry Oxygen Delivery Oxygen Flow Rate 12/16/21 03:50 12/16/21 04:00 12/16/21 04:00 Temperature 97.7 F Pulse Rate 146 H 139 H Respiratory Rate 16 Blood Pressure 130/79 Pulse Oximetry 99 97 Oxygen Delivery Nasal Cannula Oxygen Flow Rate 1 12/16/21 04:00 12/16/21 04:29 12/16/21 06:00 Temperature Pulse Rate 146 H 106 H 102 H Respiratory Rate
--- NOTE | 2021-12-16 08:50 | PCOTNOTE ---
Attempted OT evaluation this date, patient reports severe stomach pain and refused to participate. RN notified.
[2021-12-16] MEDS: dilTIAZem HCL 60 MG TABLET PO ×2 (09:50→21:00)
[2021-12-16] MEDS: MAGNESIUM OXIDE 400 MG TABLET PO (09:50)
[2021-12-16] MEDS: METOPROLOL TARTRATE 25 MG TABLET PO ×2 (09:51→21:00)
[2021-12-16] MEDS: AMIODARONE HCL 200 MG TABLET PO ×2 (09:52→21:01)
[2021-12-16] MEDS: APIXABAN 2.5 MG TABLET PO ×2 (09:52→21:01)
[2021-12-16] MEDS: ACETAMINOPHEN 500 MG TABLET PO (09:53)
[2021-12-16] MEDS: DULoxetine HCL 30 MG CAPSULE.DR PO (09:53)
[2021-12-16] MEDS: GABAPENTIN 100 MG CAPSULE 200 MG PO ×3 (09:55→16:28)
[2021-12-16] MEDS: DEXTROMETHORPHAN POLISTIREX 60 MG/10 ML SYRINGE PO ×2 (09:56→21:01)
[2021-12-16] MEDS: INSULIN ASPART (*BKC) 100 UNITS/ML SUB-Q ×3 (10:24→16:53)
[2021-12-16 12:43] LABS: Glucose Point of Care 292 mg/dl (65-105)
[2021-12-16] MEDS: LACTULOSE 20 GM/30 ML UDC PO ×3 (13:27→21:00)
[2021-12-16] MEDS: MORPHINE SULFATE (*CRX) 2 MG/ML INJ IV PUSH (13:31)
[2021-12-16 16:36] LABS: Glucose Point of Care 238 mg/dl (65-105)
[2021-12-16 20:54] LABS: Glucose Point of Care 296 mg/dl (65-105)
[2021-12-16] MEDS: NORTRIPTYLINE HCL 25 MG CAPSULE PO (21:00)
[2021-12-16] MEDS: ATORVASTATIN 40 MG TABLET PO (21:01)
--- NOTE | 2021-12-16 22:42 | PC.NURSE ---
december 13, 2021, at 0450am. patient called out for the nurse. nurse was stuck in another patients room. left other patients room and was heading down to 209. patient called out again as i was passing the desk. i told the other nurse answering call light to tell her that i was on my way down. i was 3 rooms away when patient called a third time. i could not hear what she said at the time. i walked into the room and patient was partially on the floor on her knees and arms on the bed. she sat down on floor when i came in. i asked her what was going on and how did she get to the floor. she stated that she rolled to her right, then to her left because she needed to have a bowel movement and sat up to side of bed, which she does all the time. patient stated that she had one of those twitching or jerking movements and lost her balance on the bed and slid off, catching herself as she went down. other staff started to arrive and i found out that she told them that she was on the floor. i asked her if she hurt anywhere, or if she injured herself in the fall. she denied that. she had had a bowel movement upon going to the floor. patient was placed back in bed and was cleaned up. patient was told that she can no longer sit on side of bed without assistance. dr dao was made aware, rooming house keeper and charge nurse were informed. dr dao and others were made aware of twitching that was only while awake and just occationally.
[2021-12-17] VITALS (28 sets, daily range): BP systolic 103–150; BP diastolic 64–87; PULSE 51–163; RESP 20–34; TEMP 36.3–36.6; O2SAT 91–100
--- NOTE | 2021-12-17 | ECHO_ITS ---
Patient Info Name: Kavita Moreno Age: 76 years : 1945 Gender: Female Ht: 66 in Wt: 139 lbs BSA: 1.72 m2 HR: 106 bpm BP: 150 / 87 mmHg Heart Rhythm: Sinus Rhythm Technical Quality: Fair Exam Date: 12/17/2021 12:33 PM Exam Location: Echo Lab Patient Status: Inpatient Admit Date: 12/04/2021 Staff Ordering Physician: Pedro Boyer DO [place]man: Brittanie Flores RDCS Attending Provider: Ofelia Bai MD Referring Physician: Merlin DENNISON; Exam Type: CA echo doppler color flow Study Info Indications - Troponin elevated, abn ecg Complete two-dimensional, color flow and Doppler transthoracic echocardiogram is performed. Summary 1. Complete two-dimensional, color flow and Doppler transthoracic echocardiogram is performed. 2. Left ventricular chamber dimension is mildly enlarged. 3. Entire apex is akinetic, mid to apical inferior, mid to apical anterior agrawal are hypokinetic. This is suggestive of takotsubo cardiomyopathy. 4. Left ventricular systolic function is moderately reduced, estimated at 35-40%. 5. There is no increased left ventricular wall thickness. 6. Left ventricular septal wall motion is normal. 7. The left ventricular diastolic function is grade I diastolic dysfunction. 8. E/e' 11 is mildly elevated. 9. Right ventricular systolic function is reduced and with abnormal TAPSE 1.1 cm. 10. Right ventricular chamber dimension is severely enlarged. 11. There is mild aortic valve sclerosis. 12. There is trace tricuspid valve regurgitation. 13. No pulmonary hypertension, estimated pulmonary arterial systolic pressure is 37 mmHg. Left Ventricle Entire apex is akinetic, mid to apical inferior, mid to apical anterior agrawal are hypokinetic. This is suggestive of takotsubo cardiomyopathy. E/e' 11 is mildly elevated. Left ventricular chamber dimension is mildly enlarged. Left ventricular systolic function is moderately reduced, estimated at 35-40%. There is no increased left ventricular wall thickness. Left ventricular septal wall motion is normal. The left ventricular diastolic function is grade I diastolic dysfunction. Right Ventricle Right ventricular systolic function is reduced and with abnormal TAPSE 1.1 cm. Right ventricular chamber dimension is severely enlarged. Left Atria Left atrial chamber dimension is normal. Right Atria Right atrial chamber dimension is normal. Aortic Valve The aortic valve is trileaflet. There is mild aortic valve sclerosis. There is no aortic valve stenosis. There is no aortic valve regurgitation. Pulmonic Valve There is no pulmonic regurgitation. Mitral Valve There is no mitral valve stenosis. There is mild mitral valve regurgitation. Tricuspid Valve There is trace tricuspid valve regurgitation. No pulmonary hypertension, estimated pulmonary arterial systolic pressure is 37 mmHg. Pericardium/Pleural There is no pericardial effusion. Inferior Vena Cava Normal inferior vena cava with >50% collapse upon inspiration consistent with normal right atrial pressure, 5 mmHg. Aorta The aortic root size at the sinus of Valsalva is normal. Left Ventricular Outflow Tract Name Value Normal LVOT 2D LVOT Diameter 2.0 cm
[2021-12-17] MEDS: MORPHINE SULFATE (*CRX) 2 MG/ML INJ IV PUSH ×3 (04:23→17:10)
[2021-12-17 05:17] LABS: Hematocrit 32.7 % (37.0-47.0); Hemoglobin 10.1 g/dL (12.0-15.0); Mean Corpuscular HGB Conc 30.9 g/dl (32-36); Mean Corpuscular Hemoglobin 25.8 pg (26-34); Mean Corpuscular Volume 83.4 fl (80-100); Platelet Count Result 514 k/mm3 (150-375); Red Blood Count 3.92 M/mm3 (4.2-5.4); Red Cell Distribution Width 16.4 % (11.5-14.5); White Blood Count 16.6 K/mm3 (4.5-10.0)
[2021-12-17 05:34] LABS: Anion Gap 2 mmol/L (8-16); Blood Urea Nitrogen 12 mg/dL (7-17); Calcium 9.7 mg/dL (8.4-10.2); Carbon Dioxide 35 mmol/L (22-30); Chloride 94 mmol/L (98-107); Estimated CRCL calculation 64 ml/min; Estimated Glomerular Filt Rate > 60; Glucose 273 mg/dL (65-110); Magnesium 1.7 mg/dL (1.6-2.3); Potassium 3.6 mmol/L (3.4-5.0); Sodium 131 mmol/L (137-145)
--- NOTE | 2021-12-17 05:48 | PC.NURSE ---
PATIENT IS YELLING OUT FOR PAIN MEDICATION. PATIENT WAS GIVEN 2 MG MORPHINE IV AT 0423. 1 HOUR LATER PATIENT STARTED TO SCREAM OUT AGAIN. SHE WAS TOLD THAT SHE COULD HAVE MORE IN 1 HOUR. 15 MIN. LATER PATIENT WAS SCREAMING OUT FOR PAIN MEDICATION.
[2021-12-17] MEDS: traMADol HCL (*CRX) 50 MG TABLET PO (06:03)
--- NOTE | 2021-12-17 06:23 | PC.NURSE ---
PATIENT IS CONFUSED AND SCREAMING IN PAIN. NEW MEDICATION GIVEN 15 MIN. AGO. PATIENT HAS NOW PULLED OUT HER IV. PATIENT IS A VERY DIFFICULT STICK AND ONLY HAS ONE ARM TO PLACE AN IV. PATIENTS PORT IS NOT WORKING PROPERLY AND NEEDS TO BE EVALUATED.
--- NOTE | 2021-12-17 06:27 | PC.NURSE ---
MESSAGE LEFT FOR KARLEE ARE VASCULAR ACCESS NURSE TO PLACE AN IV IN PATIENT.
[2021-12-17] MEDS: FUROSEMIDE INJ 40 MG/4 ML VIAL (08:22)
--- NOTE | 2021-12-17 08:22 | PC.NURSE ---
During shift change assessment, patient was diaphoretic and had increased work of breathing. Contacted DR. Salazar, Stat chest, Contacted charge nurse, Contacted Electrical Tests Supervisor, transferred patient to ICU for higher level of care. has been notified and stated he was on his way to the hospital.
--- NOTE | 2021-12-17 08:28 | ECG_ITS ---
Measurements Intervals [place] Rate: 112 P: 37 TX: 96 QRS: 35 QRSD: 94 T: 75 QT: 298 QTc: 408 Interpretive Statements SINUS TACHYCARDIA POSSIBLE LEFT ATRIAL ENLARGEMENT [-0.1mV P WAVE IN V1/V2] NONSPECIFIC ST AND T ABNORMALITY ABNORMAL ECG WARNING: DATA QUALITY MAY AFFECT INTERPRETATION INTERPRETATION BASED ON A DEFAULT AGE OF 40 YEARS COMPARED TO ECG 12/16/2021 02:31:07 SINUS RHYTHM REPLACES ATRIAL FIBRILLATION Electronically Signed On 12-17-2021 15:31:02 CDT by Blaine Mcnally M.D.
[2021-12-17 08:31] LABS: Glucose Point of Care 358 mg/dl (65-105)
--- NOTE | 2021-12-17 08:38 | PC.NURSE ---
Transferred 4 vials of Opium Tincture from IMU to ICU. Witnessed by Charge nurse Pebbles Wong Placed in Pyxis, counted vials with Angelina Wheeler RN
[2021-12-17 08:49] LABS: Base Excess ABG 6.3 mEq/l (+/-2.0); Fractional Inspired Oxygen 30 %; HCO3 ABG 30.9 mEq/l (22.0-26.0); Oxygen Content ABG 14.1 %vol (16.0-22.0); Oxygen Saturation ABG 90.4 % (95.0-100.0); Oxyhemoglobin 88.6 % THb (90.0-100.0); PCO2 ABG 44.4 mmHg (35.0-45.0); PO2 ABG 55.7 mmHg (80.0-100.0); PO2 FiO2 Ratio Arterial Blood 1.86 %; Total Hemoglobin 11.3 g/dL (12.0-18.0)
[2021-12-17 08:50] LABS: Device NON-INVASIVE VENT; Modified Allen's Test Pass; Non-Invasive Expiratory Pressure 6 CMH2O; Non-Invasive Inspiratory Pressure 10 CMH2O; Non-Invasive Vent Rate 16 /MIN; Site Drawn LEFT RADIAL
[2021-12-17 09:02] LABS: NT Pro B Type Natriuretic Pept 15200 pg/mL (5-100)
[2021-12-17] MEDS: INSULIN GLARGINE (*BKC) 100 UNITS/ML 25 UNITS SUB-Q (09:08)
[2021-12-17 09:22] LABS: Procalcitonin 0.1 ng/mL
[2021-12-17] MEDS: KCL 40 MEQ/WATER 100 ML 100 ML 25 ML IVPB (09:29)
[2021-12-17] MEDS: MAGNESIUM SULF 2 GM/WATER 50ML 2 GM/50 ML BAG IVPB (09:30)
[2021-12-17] MEDS: INSULIN ASPART (*BKC) 100 UNITS/ML SUB-Q ×2 (09:33→13:04)
--- NOTE | 2021-12-17 09:38 | PC.NURSE ---
This patient, Kavita Moreno, was transferred to [ICU7 ] on 12/17/21 at 0938. Personal belongings sent with patient. Report given to [Angelina ]. Appropriate documentation sent with patient.
--- NOTE | 2021-12-17 10:14 | WPDCNINT ---
Assessment and Plan Assessment and plan (1) Acute and chronic respiratory failure: Code(s): J96.20 - Acute and chronic respiratory failure, unspecified whether with hypoxia or hypercapnia Status: Acute Assessment and Plan: Acute on chronic Respiratory failure which is multifactorial and secondary to chronic right pleural effusion, non-small cell lung cancer and current deterioration likely from pulmonary edema with other less likely possibilities of pneumonia. The fact that patient was already on broad-spectrum antibiotics and had acute deterioration and is afebrile and hemodynamically stable would go against pneumonia. She also did not had any breakfast this morning I placed patient on BiPAP and I was able to wean down her FiO2 100% to 30% with BiPAP. Her respiratory rate has improved. Lasix was given and I will repeated later in the day If she does not improve or deteriorates then she will need intubation and mechanical ventilation. She is already on vancomycin I have added Zosyn I will repeat blood cultures, check procalcitonin level, check BNP level I will also check a chest CT She had large chronic pleural effusion and thoracentesis was attempted on 12/05 but radiologist was unable to drain any fluid. I discussed with Dr. Daly and he told me that fluid was too thick to be drained with a small bore catheter used for thoracentesis. Patient may need a chest tube to drain that fluid if she does not improve less invasive measures Since this acute deterioration happened over 12 hours I do not suspect it to be radiation pneumonitis although patient does have risk of. Last radiation was close to 2 weeks ago. Hold steroids at this time. CT chest is pending Continue full mechanical ventilation support to prevent hypoxemia/hypercarbia and end organ damage. I will repeat chest x-ray in am. (2) Non-small cell lung cancer metastatic to bone: Code(s): C34.90 - Malignant neoplasm of unspecified part of unspecified bronchus or lung; C79.51 - Secondary malignant neoplasm of bone Status: Acute (3) Pleural effusion: Code(s): J90 - Pleural effusion, not elsewhere classified Status: Acute (4) Pneumonia: Code(s): J18.9 - Pneumonia, unspecified organism Status: Acute (5) Non-ST elevated myocardial infarction (non-STEMI): Code(s): I21.4 - Non-ST elevation (NSTEMI) myocardial infarction Status: Acute Assessment and Plan: Patient's chest pain is very nonspecific and she states that she has pain all over her body including chest abdomen EKG done shows T-wave abnormality Elevated troponin in the setting of acute respiratory failure This is likely type [address] segment elevation [place] Continue serial troponin monitoring Patient is already on anticoagulation, Cardizem beta-yue I will add aspirin See below for echocardiogram done recently Patient is already being seen by Cardiology (6) Congestive heart failure: Code(s): I50.9 - Heart failure, unspecified Status: Acute Assessment and Plan: Chest x-ray consistent with pulmonary edema Echo 12/04 1. Complete two-dimensional, color flow and Doppler transthoracic echocardiogram is performed. ? 2. Technically suboptimal study due to poor sonographic images. ? 3. Left ventricular chamber dimension is normal. ? 4. Left ventricular systolic function is normal, estimated at 60-65%. ? 5. The left ventricular diastolic function is grade I diastolic dysfunction. ? 6. E/e' 8 is minimally elevated. Check BNP Lasix IV now and repeat later in the day (7) PAF (paroxysmal atrial fibrillation): Code(s): I48.0 - Paroxysmal atrial fibrillation Status: Acute Assessment and Plan: Currently in sinus tach Continue Eliquis, p.o. Cardizem and beta-yue (8) Diabetes mellitus: Code(s): E11.9 - Type 2 diabetes mellitus without complications Status: Acute Assessment and Plan: Change sliding scale to
--- NOTE | 2021-12-17 10:17 | WPDNEURCNPN ---
Assessment and Plan Assessment and plan (1) PAF (paroxysmal atrial fibrillation): Code(s): I48.0 - Paroxysmal atrial fibrillation Status: Acute (2) Acute and chronic respiratory failure: Code(s): J96.20 - Acute and chronic respiratory failure, unspecified whether with hypoxia or hypercapnia Status: Acute (3) Congestive heart failure: Code(s): I50.9 - Heart failure, unspecified Status: Acute Plan nonfocal neurological status generally with all the metabolic problems going on will follow she has any evidence of neurological deficit treatment is being continued as such Consult date: 12/17/21 Time Seen: 10:00 Reason for consult: Neuro evaluation HPI: Kavita Moreno is a 76 year old female admitted to the hospital through the emergency room on December 04, 2021 with complaints of pain over entire body in addition to the ongoing history of 1. Stage IV carcinoma of the lung, patient has been seen by the newsagent for the paroxysmal atrial fibrillation, being followed by the oncologist for the metastatic non-small cell lung cancer, most recently has been followed by the radiologist for the breakthrough to atrial fibrillation 3rd time and back in sinus rhythm receiving amiodarone 200 mg every 12 hours though recently decreased to once a day along with the metoprolol 25 mg every 12 hours and Eliquis 2.5 mg b.i.d. diltiazem drip has been stopped, neuro evaluation is being done for the neurological status Review of Systems Review of Systems: All systems reviewed & are unremarkable except as noted in HPI and below PMFSH Past Medical History Medical History Asthma Breast cancer Diabetes mellitus Dyslipidemia Hypertension 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 Surgical History Surgical History History of dilatation and curettage History of right mastectomy History of tubal ligation Family History Family History Father Heart failure Mother COPD (chronic obstructive pulmonary disease) Failure to thrive Sibling Paranoia Glaucoma Gallbladder disease Social History Social History Smoking packs per day: 1.5 Smoking cigarettes per day: 30.0 Years smoked: 35 Smoking pack-years: 52.50 Smoking status: Former smoker Tobacco type: cigarettes Spiritual care concerns: No Meds Home Medications and Allergies Home Medications Medication Instructions Recorded Confirmed Type albuterol 90 mcg/actuation aerosol 2 mcg inhalation Q6-8H PRN 11/06/21 12/04/21 History inhaler Shortness Of Breath benzonatate 100 mg capsule 200 mg PO TID PRN Cough 11/06/21 12/04/21 History glipizide 5 mg tablet 5 mg PO BID 11/06/21 12/04/21 History insulin glargine 100 unit/mL 30 unit subcut QAM 11/06/21 12/05/21 History subcutaneous cartridge morphine 15 mg immediate release 7.5 mg PO Q4H PRN Pain 11/06/21 12/04/21 History tablet morphine 15 mg tablet,oral ONLY 15 mg PO Q12H 11/06/21 12/04/21 History (not feeding tubes) duloxetine 30 mg capsule,delayed 1 mg PO DAILY 12/04/21 12/04/21 History release gabapentin 100 mg capsule 100 mg PO TID 12/04/21 12/04/21 History nortriptyline 25 mg capsule 25 mg PO HS 12/04/21 12/04/21 History ondansetron HCl 4 mg tablet 4 mg PO Q6H PRN Nausea 12/04/21 12/04/21 History atorvastatin 40 mg tablet 40 mg PO HS 12/05/21 12/05/21 History cholecalciferol (vitamin D3) 50 50 mcg PO DAILY 12/05/21 12/05/21 History mcg (2,000 unit) tablet Allergies Allergy/AdvReac Type Severity Reaction Status Date / Time No Known Allergies Allergy Verified 12/04/21 09:54 Vital Signs Vital Signs - 24 hr 12/16/21 12:00 12/16/21 12:00 12/16/21 14:00 Temperature 36.7 C Pulse Rate 78 79 82 Respiratory Rate 16 Blood Pressure
--- NOTE | 2021-12-17 11:38 | PCFNICU ---
ICU Rounding Note: Pt current nutrition is NPO. Last recorded weight is 63.2 kg, down from 66.7 kg on admit. Bowel Motility:+Bm reported 12/14 Labs Reviewed:Glu 273,Cr 0.6,Na 131, Hct 32.7,Hgb 10.1 Meds Noted:Zosyn, Ultram, Vancomycin, KCL, Heparin. Skin: WNL Additional Notes: Patient transferred to ICU today. Patient is currently NPO with Bipap. Previously been on a regular diet with Glucerna shake BID. Appetite had been poor. Following daily in ICU rounds. Monitor changes in wt and oral intake % every 3 days.
[2021-12-17 12:02] LABS: Glucose Point of Care 268 mg/dl (65-105)
[2021-12-17] MEDS: MORPHINE SULFATE (*CRX) 4 MG/ML INJ IV PUSH ×4 (13:03→23:44)
[2021-12-17] MEDS: CENTRAL LINE FLUSH 10 ML IV PUSH ×2 (13:05→21:51)
[2021-12-17] MEDS: METOPROLOL TARTRATE INJ 5 MG/5 ML VIAL (13:52)
--- NOTE | 2021-12-17 13:56 | P.PNCROSS_ITS ---
Event Note Event Note Event Note: I discussed results of CT scan with patient's family. Patient has gone back in to AFib with RVR. Patient was given 5 mg of Lopressor IV. I will start her on Cardizem drip for rate control. Check BMP. patient has put out more than 2.5 L of urine after her last Lasix dose. FiO2 is down to 25%. I will hold more Lasix at this time to avoid volume depletion.
--- NOTE | 2021-12-17 14:01 | PCPTNOTE ---
Attempted PT evaluation, per RN, hold PT evaluation today due to patient condition. Will follow.
--- NOTE | 2021-12-17 14:11 | PCOTNOTE ---
Per RN, hold therapy evaluation today due to patient condition. Will follow.
[2021-12-17 14:26] LABS: Anion Gap 3 mmol/L (8-16); Blood Urea Nitrogen 15 mg/dL (7-17); Calcium 9.5 mg/dL (8.4-10.2); Carbon Dioxide 39 mmol/L (22-30); Chloride 90 mmol/L (98-107); Estimated CRCL calculation 56 ml/min; Estimated Glomerular Filt Rate > 60; Glucose 239 mg/dL (65-110); Potassium 3.9 mmol/L (3.4-5.0); Sodium 132 mmol/L (137-145)
[2021-12-17] MEDS: dilTIAZem 100 MG/100 ML 100 MG/100 ML BAG IV CONT (14:26)
--- NOTE | 2021-12-17 16:25 | PM.PNCARD ---
Progress Note: A&P Assessment and Plan (1) PAF (paroxysmal atrial fibrillation): Code(s): I48.0 - Paroxysmal atrial fibrillation Status: Acute Assessment and Plan: Breakthrough to atrial fib for 3rd time, back in sinus rhythm. Probably due to pneumonia. [id number] 3. Given metastatic lung cancer discussed with patient anticoagulation vs aspirin.? On Amiodarone 200 mg PO q12hr for 2 weeks then 200 mg daily. On Metoprolol 25 mg every 12 hours. On Eliquis 2.5 mg PO BID for anticoagulation. Diltiazem 60 mg every 12 hours for rate control when she does have breakthrough atrial fib. (2) Hypertension: Code(s): I10 - Essential (primary) hypertension Status: Acute Assessment and Plan: Stable. (3) Pneumonia: Code(s): J18.9 - Pneumonia, unspecified organism Status: Acute Assessment and Plan: On antibiotics as per hospitalist. (4) Pleural effusion: Code(s): J90 - Pleural effusion, not elsewhere classified Status: Acute Assessment and Plan: Unable to remove any fluid with thoracentesis. She had it done twice before [facility]. (5) Congestive heart failure: Code(s): I50.9 - Heart failure, unspecified Status: Acute Assessment and Plan: Echo shows new systolic dysfunction with EF 35-40% with basal segments daljit normally but mid to apical segments are hypokinetic to akinetic apex s/o Takotsubo cardiomyopathy. Diurese as needed. On Metoprolol. Add Losartan 12.5 mg daily as BP tolerates. (6) Elevated troponin: Code(s): R77.8 - Other specified abnormalities of plasma proteins Status: Acute Assessment and Plan: Probably due to new on set systolic heart failure probably due to Takotsubo cardiomyopathy. Trend troponin to peak. Subjective Date/time seen: 12/17/21 16:25 Patient got acutely sob this morning and had to almost be intubated and was able to go BiPAP and transferred to ICU. She has diffuse thoracic pain. Exam Const: General: cooperative, healthy appearing and comfortable Resp: Auscultation: no crackles, no rales, no rhonchi, no wheezes and diminished lung sounds Cardio: Jugular venous distension: no JVD Rate: regular rate Rhythm: regular rhythm Heart sounds: no murmurs Peripheral pulses: dorsalis pedis present GI: GI Palp: No abdominal tenderness and Yes Soft to palpation Neuro: General: oriented to person, oriented to place and oriented to time Extrem: Right lower extremity: no edema Left lower extremity: no edema Objective Data Vital Signs Vital Signs: Vital Signs - 24 hr 12/16/21 18:00 12/16/21 20:56 12/16/21 21:00 Temperature Pulse Rate 89 96 Respiratory Rate Blood Pressure Pulse Oximetry 96 Oxygen Delivery Nasal Cannula Oxygen Flow Rate 1 Fraction of Inspired Oxygen 12/16/21 21:01 12/16/21 20:00 12/16/21 20:00 Temperature Pulse Rate 96 90 90 Respiratory Rate 24 H Blood Pressure Pulse Oximetry 96 Oxygen Delivery Nasal Cannula Oxygen Flow Rate 1 Fraction of Inspired Oxygen 12/16/21 22:00 12/16/21 20:00 12/16/21 23:53 Temperature 97.8 F 97.7 F Pulse Rate 81 94 78 Respiratory Rate 24 H 20 Blood Pressure 145/74 H 117/64 Pulse Oximetry 98 98 Oxygen Delivery Oxygen Flow Rate Fraction of Inspired Oxygen 12/17/21 00:00 12/17/21 00:00 12/17/21 02:00 Temperature Pulse Rate 76 76 82 Respiratory Rate 20 Blood Pressure Pulse Oximetry 98 Oxygen Delivery Nasal Cannula Oxygen Flow Rate 1 Fraction of Inspired Oxygen 12/17/21 04:00 12/17/21 04:00 12/17/21 04:00 Temperature 97.3 F L Pulse Rate 93 93 94 Respiratory Rate 20 20 Blood Pressure 146/78 H Pulse Oximetry 98 96 Oxygen Delivery Nasal Cannula Oxygen Flow Rate 1 Fraction of Inspired Oxygen 12/17/21 06:00 12/17/21 08:25 12/17/21 09:04 Temperature Pulse Rate 102 H 116 H 107 H Respiratory Rate 33 H Blood Pressure Pulse Ox
[2021-12-17 16:26] LABS: Glucose Point of Care 194 mg/dl (65-105)
--- NOTE | 2021-12-17 18:33 | WPDONCPN ---
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 Status post radiation therapy. Plan to start chemotherapy but patient condition is rapidly deteriorating. CT chest finding noted that showed enlargement of 6.9 x 5.8 cm mass along the gastrohepatic ligament with smaller retroperitoneal mass in the left and right upper quadrant likely involving the adrenal gland suspicious for metastatic disease. Persistent collapse of the right middle and lower lobes. Small bilateral pleural effusion. Patchy opacities throughout the both lungs consistent with pneumonia versus pulmonary edema. I will discuss with the family to make patient DNR. Pneumonia. Patient is on Zosyn and vancomycin. Atrial fibrillation. Patient is on anticoagulation therapy - Time Spent With Patient Total time spent is greater than 50% in coordination of care (as documented) at patient's floor/unit and/or counseling patient: 15 - 25 minutes Subjective Interval history: Metastatic non-small cell lung cancer Anemia Atrial fibrillation Pneumonia Shaking movements Review of Systems - Review of Systems Events noted. Patient was moved to the ICU due to hypoxemia. She is on BiPAP. She is complaining of some chest wall discomfort and just received morphine. - Neurologic Denies syncope Exam Vital signs: Greg Samaniego. Assessment of coma and impaired consciousness. A practical scale. Lancet 1974; 2:81-4. Narrative: Lungs are clear to auscultation bilaterally Cardiovascular regular rate rhythm no murmurs Abdomen soft nontender nondistended bowel sounds are positive Extremities no edema PN: Objective Data - Labs CBC & Chem 7: 12/17/21 04:38 12/17/21 14:07 Labs: Laboratory Results - last 24 hr 12/16/21 12/17/21 12/17/21 20:50 04:38 04:38 WBC 16.6 H RBC 3.92 L Hgb 10.1 L Hct 32.7 L MCV 83.4 D MCH 25.8 L MCHC 30.9 L RDW 16.4 H Plt Count 514 H MPV 10.0 Puncture Site ABG pH ABG pCO2 ABG pO2 ABG PO2/FiO2 Ratio ABG HCO3 ABG O2 Saturation ABG O2 Content ABG Base Excess A-a Gradient Oxyhemoglobin Total Hemoglobin O2 Delivery Device O2 Liters/Min Vent Rate FiO2 Expiratory Pressure Inspiratory Pressure Sodium 131 L Potassium 3.6 Chloride 94 L Carbon Dioxide 35 H Anion Gap 2 L BUN 12 Creatinine 0.60 L Estim Creat Clear Calc 64 Estimated GFR > 60 Glucose 273 H POC Capillary Glucose 296 H Calcium 9.7 Magnesium 1.7 Troponin I NT-Pro-B Natriuret Pep Procalcitonin 12/17/21 12/17/21 12/17/21 08:28 08:36 08:36 WBC RBC Hgb Hct MCV MCH MCHC RDW Plt Count MPV Puncture Site ABG pH ABG pCO2 ABG pO2 ABG PO2/FiO2 Ratio ABG HCO3 ABG O2 Saturation ABG O2 Content ABG Base Excess A-a Gradient Oxyhemoglobin Total Hemoglobin O2 Delivery Device O2 Liters/Min Vent Rate FiO2 Expiratory Pressure Inspiratory Pressure Sodium Potassium Chloride Carbon Dioxide Anion Gap BUN Creatinine Estim Creat Clear Calc Estimated GFR Glucose POC Capillary Glucose 358 H Calcium Magnesium Troponin I NT-Pro-B Natriuret Pep 15408 H Procalcitonin 0.1 12/17/21 12/17/21 12/17/21 08:37 08:40 11:53 WBC RBC Hgb Hct MCV MCH MCHC RDW Plt Count MPV Puncture Site Left radial ABG pH 7.460 H ABG pCO2 44.4 ABG pO2 55.7 L ABG PO2/FiO2 Ratio 1.86 ABG HCO3 30.9 H ABG O2 Saturation 90.4 L ABG O2 Content 14.1 L ABG Base Excess 6.3 A-a Gradient 106.0 Oxyhemoglobin 88.6 L Total Hemoglobin 11.3 L O2 Delivery Device Non-invasive vent O2 Liters/Min Not Reportable Vent Rate 16 FiO2 30 Expiratory Pressure 6 Inspira
--- NOTE | 2021-12-17 19:00 | PC.NURSE ---
patient's Chris called to discuss his conversation with Dr. Lujan and wanted to make his a DNR. Pebbles Sepulveda was a witness to that conversation. The patient was continuously trying to take bipap off and stated I want to , I'm in pain, leave me alone! . I did verbalize this to Chris and also told him how she if more frequently going in and out of AFIB RVR and her heart is very weak so if her heart were to stop and we make her a DNR then we would just let her go in peace and comfort and he stated he understood and go forward with the DNR. Notified Dr. Jones of this conversation; received orders for the DNR, start cardizem drip at 5ml/hr since HR is sustaining in the 150's and titrate accordingly, if patient wants to take bipap off then place oxygen to keep saturations 90 and above, also give PRN pain medication for comfort.
[2021-12-17] MEDS: ONDANSETRON INJ 4 MG/2 ML VIAL IV PUSH (21:51)
[2021-12-18] VITALS (17 sets, daily range): BP systolic 101–114; BP diastolic 53–65; PULSE 60–135; RESP 16–21; TEMP 36.4–36.6; O2SAT 93–97
[2021-12-18] MEDS: INSULIN ASPART (*BKC) 100 UNITS/ML SUB-Q ×3 (00:39→08:13)
[2021-12-18 01:19] LABS: Glucose Point of Care 254 mg/dl (65-105)
[2021-12-18] MEDS: MORPHINE SULFATE (*CRX) 4 MG/ML INJ IV PUSH ×4 (01:40→11:28)
[2021-12-18] MEDS: dilTIAZem 100 MG/100 ML 100 MG/100 ML BAG 10 MG IV CONT (02:46)
[2021-12-18 03:54] LABS: Glucose Point of Care 209 mg/dl (65-105)
[2021-12-18 05:12] LABS: Hematocrit 29.2 % (37.0-47.0); Hemoglobin 9.3 g/dL (12.0-15.0); Mean Corpuscular HGB Conc 31.8 g/dl (32-36); Mean Corpuscular Hemoglobin 26.3 pg (26-34); Mean Corpuscular Volume 82.5 fl (80-100); Mean Platelet Volume 9.7 fl (7.4-10.4); Platelet Count Result 455 k/mm3 (150-375); Red Blood Count 3.54 M/mm3 (4.2-5.4); Red Cell Distribution Width 16.5 % (11.5-14.5); White Blood Count 16.6 K/mm3 (4.5-10.0)
[2021-12-18 05:31] LABS: Anion Gap 4 mmol/L (8-16); Blood Urea Nitrogen 17 mg/dL (7-17); Calcium 9.5 mg/dL (8.4-10.2); Carbon Dioxide 37 mmol/L (22-30); Chloride 91 mmol/L (98-107); Estimated CRCL calculation 56 ml/min; Estimated Glomerular Filt Rate > 60; Glucose 208 mg/dL (65-110); Magnesium 1.8 mg/dL (1.6-2.3); Sodium 132 mmol/L (137-145)
[2021-12-18] MEDS: ONDANSETRON INJ 4 MG/2 ML VIAL IV PUSH (05:35)
[2021-12-18] MEDS: CENTRAL LINE FLUSH 10 ML IV PUSH (05:38)
[2021-12-18] MEDS: HYDROmorphone HCL INJ (*CRX) 1 MG/ML SYR IV PUSH (05:48)
--- NOTE | 2021-12-18 06:06 | PC.NURSE ---
Patient has had a very difficult night with her pain. I have given her 4mg morphine every 2 hours per MD order and that dulls the pain for appox. 20 minutes to half an hour. She has been moaning and restless. I have been in her room for appox 6 hours comforting, repositioning the patient and swabbing her mouth. I talked to Dr. Graff this morning and she gave me a one time dose of Dilaudid for breakthrough pain. She is extremely thirsty but chokes and coughs when she drinks herself so I have been giving her swabs and she has not displayed any choking. Family came in through the night and stayed until 2330. We discussed the possibility of going on hospice and explained the differences between that and being a DNR. I will pass in report that they will need more information.
--- NOTE | 2021-12-18 07:29 | PM.PNCARD ---
Progress Note: A&P Assessment and Plan (1) PAF (paroxysmal atrial fibrillation): Code(s): I48.0 - Paroxysmal atrial fibrillation Status: Acute Assessment and Plan: Frequent recurrence of atrial fib. [id number] 3. Given metastatic lung cancer discussed with patient anticoagulation vs aspirin.? On Amiodarone 200 mg PO q12hr for 2 weeks then 200 mg daily. On Metoprolol 25 mg every 12 hours. On Eliquis 2.5 mg PO BID for anticoagulation. She is on Diltiazem drip at the moment as she is in rapid atrial fib since last night. As patient is now DNR and hospice, will sign off. Please call with any questions. (2) Hypertension: Code(s): I10 - Essential (primary) hypertension Status: Acute Assessment and Plan: Stable. (3) Pneumonia: Code(s): J18.9 - Pneumonia, unspecified organism Status: Acute Assessment and Plan: On antibiotics as per hospitalist. (4) Pleural effusion: Code(s): J90 - Pleural effusion, not elsewhere classified Status: Acute Assessment and Plan: Unable to remove any fluid with thoracentesis. She had it done twice before at [facility]. (5) Congestive heart failure: Code(s): I50.9 - Heart failure, unspecified Status: Acute Assessment and Plan: Echo shows new systolic dysfunction with EF 35-40% with basal segments daljit normally but mid to apical segments are hypokinetic to akinetic apex s/o Takotsubo cardiomyopathy. Diurese as needed. On Metoprolol. Add Losartan 12.5 mg daily as BP tolerates. As patient is now DNR and hospice, will sign off. Please call with any questions. (6) Elevated troponin: Code(s): R77.8 - Other specified abnormalities of plasma proteins Status: Acute Assessment and Plan: Probably due to new on set systolic heart failure probably due to Takotsubo cardiomyopathy. Troponin peaked at 2.6. Subjective Date/time seen: 12/18/21 07:29 Reports pain all over her body. No sob at this time. She has decided to go hospice. Exam Const: General: cooperative, healthy appearing and comfortable Resp: Auscultation: no crackles, no rales, no rhonchi, no wheezes and diminished lung sounds Cardio: Jugular venous distension: no JVD Rate: tachycardic Rhythm: abnormal rhythm Heart sounds: no murmurs Peripheral pulses: dorsalis pedis present GI: GI Palp: No abdominal tenderness and Yes Soft to palpation Neuro: General: oriented to person, oriented to place and oriented to time Extrem: Right lower extremity: no edema Left lower extremity: no edema Objective Data Vital Signs Vital Signs: Vital Signs - 24 hr 12/17/21 08:25 12/17/21 09:04 12/17/21 09:07 Temperature Pulse Rate 116 H 107 H 110 H Respiratory Rate 33 H Blood Pressure Pulse Oximetry 91 Oxygen Delivery BiPAP Oxygen Flow Rate Fraction of Inspired Oxygen 12/17/21 08:15 12/17/21 08:45 12/17/21 10:00 Temperature Pulse Rate 113 H 103 H Respiratory Rate 30 H Blood Pressure 150/87 H Pulse Oximetry 97 92 Oxygen Delivery BiPAP Oxygen Flow Rate Fraction of Inspired Oxygen 30 12/17/21 11:00 12/17/21 12:00 12/17/21 12:00 Temperature Pulse Rate 106 H 98 Respiratory Rate 32 H Blood Pressure Pulse Oximetry 92 97 Oxygen Delivery BiPAP BiPAP Oxygen Flow Rate Fraction of Inspired Oxygen 25 12/17/21 12:00 12/17/21 14:26 12/17/21 13:52 Temperature 97.4 F L Pulse Rate 96 148 H 160 H Respiratory Rate 24 H Blood Pressure 120/64 Pulse Oximetry 96 Oxygen Delivery Oxygen Flow Rate Fraction of Inspired Oxygen 12/17/21 15:16 12/17/21 14:45 12/17/21 14:00 Temperature Pulse Rate 105 H 89 123 H Respiratory Rate 34 H Blood Pressure Pulse Oximetry 95 Oxygen Delivery BiPAP Oxygen Flow Rate Fraction of Inspired Oxygen 12/17/21 14:30 12/17/21 13:50 12/17/21 16:00 Temperature Pulse Rate 102 H 137 H Respiratory Rate Blood P
[2021-12-18 07:42] LABS: Glucose Point of Care 221 mg/dl (65-105)
[2021-12-18] MEDS: fentaNYL CITRATE INJ (*CRX) 100 MCG/2 ML VIAL 25 MCG IV PUSH (08:11)
[2021-12-18] MEDS: MAGNESIUM SULF 2 GM/WATER 50ML 2 GM/50 ML BAG IVPB (08:12)
[2021-12-18] MEDS: KCL 40 MEQ/WATER 100 ML 100 ML 25 ML IVPB (08:12)
[2021-12-18] MEDS: INSULIN GLARGINE (*BKC) 100 UNITS/ML 25 UNITS SUB-Q (08:13)
--- NOTE | 2021-12-18 09:12 | WPDINTPN ---
Progress Note: A&P Assessment and Plan (1) Acute and chronic respiratory failure: Code(s): J96.20 - Acute and chronic respiratory failure, unspecified whether with hypoxia or hypercapnia Status: Acute Assessment and Plan: 12/17: Patient was transferred from the medical floor to the ICU for Acute on chronic Respiratory failure which is multifactorial and secondary to chronic right pleural effusion, non-small cell lung cancer and current deterioration likely from pulmonary edema with other less likely possibilities of pneumonia.? The fact that patient was already on broad-spectrum antibiotics and had acute deterioration and is afebrile and hemodynamically stable would go against pneumonia.? Patient did not have any breakfast on the day which she was transferred to the ICU, so acute aspiration is less likely Patient was initially placed on BiPAP and given Lasix to which she responded well. Currently on 2 L nasal cannula with adequate O2 sats, patient states her respiratory status feels better -remains on vancomycin and Zosyn -continue bronchodilators -12/17/2021: Blood cultures -preliminary results are negative x2 Patient had a large chronic pleural effusion and thoracentesis was attempted on 12/05 but radiologist was unable to drain any fluid.? Dr. Jones discussed with Dr. Daly ( radiologist) who told him that fluid was too thick to be drained with a small bore catheter used for thoracentesis. Patient may need a chest tube to drain that fluid if she does not improve with less invasive measures Since this acute deterioration happened over 12 hours I do not suspect it to be radiation pneumonitis although patient does have risk of.? Last radiation was close to 2 weeks ago.? Hold steroids at this time.? CT Chest 12/17 IMPRESSION: 1. Patchy consolidation groundglass opacities throughout both lungs consistent with pneumonia versus less likely pulmonary edema. 2. Small bilateral pleural effusions, unchanged and likely complex with pleural thickening on the right. 3. Persistent collapse of the right middle and lower lobes. 4. No lytic bone lesions at the C5 vertebral body and left-sided the manubrium consistent with metastatic disease. 5. There is enlargement of a now 6.9 x 5.8 cm mass along the gastrohepatic ligament an additional smaller retroperitoneal mass in the left and right upper quadrant likely involving the adrenal glands suspicious for metastatic disease. 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 -appreciate oncology evaluation and recommendation (3) Non-ST elevated myocardial infarction (non-STEMI): Code(s): I21.4 - Non-ST elevation (NSTEMI) myocardial infarction Status: Acute Assessment and Plan: Patient's chest pain is very nonspecific and she states that she has pain all over her body including chest and abdomen EKG done shows T-wave abnormality Elevated troponin: Troponins are elevated but flat -cardiology following the patient -could be related to takotsubo cardiomyopathy, atrial fibrillation, respiratory distress/type 2 infarct as seen on the echocardiogram done on 12/17 -Echocardiogram 12/17/2021: ?Entire apex is akinetic, mid to apical inferior, mid to apical anteriorwalls are hypokinetic. This is suggestive of takotsubo cardiomyopathy.. Left ventricular systolic function is moderately reduced, estimated at 35-40%. Grade 1 diastolic dysfunction RV systolic function is reduced. RV chamber dimension is severely enlarged. No pulmonary hypertension Patient is already on anticoagulation, Cardizem, beta-yue Continue aspirin Cardiology following the patient (4) Congestive heart failure: Code(s): I50.9 - Heart failure, unspeci
[2021-12-18] MEDS: PANTOPRAZOLE SODIUM IV 40 MG VIAL IV PUSH (09:20)
--- NOTE | 2021-12-18 10:51 | PCPTNOTE ---
Pt is going on Hospice. Orders DC at this time.
--- NOTE | 2021-12-18 11:47 | PCOTNOTE ---
Patient is going on Hospice. OT Orders discharge at this time.
--- NOTE | 2021-12-18 12:07 | PM.DS ---
DS: Admitting Diagnosis Discharge Date 12/18/2021 Admitting Diagnosis myalgia DS: Discharge Diagnosis Discharge Diagnosis (1) Pleural effusion: Code(s): J90 - Pleural effusion, not elsewhere classified Status: Acute (2) Elevated INR: Code(s): R79.1 - Abnormal coagulation profile Status: Acute (3) Dyslipidemia: Code(s): E78.5 - Hyperlipidemia, unspecified Status: Acute (4) Hypertension: Code(s): I10 - Essential (primary) hypertension Status: Acute (5) Diabetes mellitus: Code(s): E11.9 - Type 2 diabetes mellitus without complications Status: Acute (6) Pneumonia: Code(s): J18.9 - Pneumonia, unspecified organism Status: Acute (7) PAF (paroxysmal atrial fibrillation): Code(s): I48.0 - Paroxysmal atrial fibrillation Status: Acute (8) 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: Code(s): C34.81 - 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 Status: Acute (9) Non-small cell lung cancer: Code(s): C34.90 - Malignant neoplasm of unspecified part of unspecified bronchus or lung Status: Acute (10) Hypomagnesemia: Code(s): E83.42 - Hypomagnesemia Status: Acute (11) Non-small cell lung cancer metastatic to bone: Code(s): C34.90 - Malignant neoplasm of unspecified part of unspecified bronchus or lung; C79.51 - Secondary malignant neoplasm of bone Status: Acute Plan 12/05/21 c/s IR for thoracentesis pending oncology eval cardiology managing PAF OAC after thoracentesis 12/06/21 pt to have port inserted tomorrow hypoglycemic this am insulin decreased to 25U glipizide held cont to have cough improved only when supine even on Tessalon Perles,-> dextromethorphan cont on vanco and cefepime cont to have chest pain on MS contin 15 -> 30 PRN coverage for pain will remain the same 12/07/21 port placed remains in afib on tele resp failure requiring 2L NC +fluid balance 1.6L currently on LR 1L at 60cc/hr pain control inadequate at this time. pt concerned about taking more pain medications combo of morphine and Fentanyl in OR made her hallucinate cont vanc and cefepime BG improved w DC of glipizide decrease of Lantus and use of ISS coverage 12/08/21 doing ok pain better controlled miralax and dulcolax for constipation US to assess for ascites up to chair PT/OT 12/09/21 lactulose QID tincture of opium q 4hrs x cough morphine 30mg BID PRN IR pain medications PT/OT dispo: home tomorrow w C 12/10/2021 Patient converted AFib RVR yesterday afternoon and was transferred back to step-down she is currently on an amiodarone drip until she completes 24 hours of care then she will transition to [facility] Cardiology following Continue lactulose q.i.d. patient is advised to request this medication until she has a bowel movement Continue opium for cough control Continue morphine extended release with short-acting p.r.n. for breakthrough pain Continue PT OT Patient will not consider going to a rehab facility and insists that she will be going home with home health care when cleared for discharge. 12/11/2021 interval history: patient with history of small cell lung carcinoma with metastatic to bone, with the pain being treated with oral morphine as well as IV morphine for breakthrough pain patient has developed constipation no significant abdominal pain nausea or vomiting patient was given soapsuds enema without much relief, KUB showed moderate amount of fecal but no obstruction as patient is passing gas, patient with history proximal atrial fibrillation now in atrial fibrillation with RVR seen by cardiology on amiodarone drip and metoprolol tartrate 25 mg q.6, [id number] 3 patient is being anticoagulate with Eliquis 2.5 mg b.i.d. patient is present in room, gave update and will monitor. 12/12/2021 interval history: patient with history
== END 2021-12-18 12:29 | disposition hospice, home (50) | DRG 280 ==
LOC: ANHED 10:09 → ANHIMU 15:36 → ANHICU 12-18 12:07 → ANH3MEDSUR 12-19 11:17 → ANHICU 12-19 11:17 → ANHIMU 12-19 11:17
PROVIDERS: Hospitalist; Internal Medicine; Internal Medicine Hematology & Oncology; Nurse Practitioner Adult Health; Surgery; Admitting Provider Family Medicine; Emergency Provider Emergency Medicine; PCP Internal Medicine; Visit Provider Family Medicine
PROC: 06H033Z Insertion of Infusion Device into Inferior Vena Cava, Percutaneous Approach (ICD-10-PCS; principal; 2021-12-07 09:30)
DX: I48.0 Paroxysmal atrial fibrillation (principal); J96.20 Acute and chronic respiratory failure, unspecified whether with hypoxia or hypercapnia; I21.4 Non-ST elevation (NSTEMI) myocardial infarction; J18.9 Pneumonia, unspecified organism; I50.21 Acute systolic (congestive) heart failure; J90 Pleural effusion, not elsewhere classified; Z66 Do not resuscitate; Z51.5 Encounter for palliative care; C34.81 Malignant neoplasm of overlapping sites of right bronchus and lung; C79.71 Secondary malignant neoplasm of right adrenal gland; C79.51 Secondary malignant neoplasm of bone; R44.3 Hallucinations, unspecified; I51.81 Takotsubo syndrome; Z20.822 Contact with and (suspected) exposure to COVID-19; Z79.4 Long term (current) use of insulin; J45.909 Unspecified asthma, uncomplicated; Z85.3 Personal history of malignant neoplasm of breast; E78.5 Hyperlipidemia, unspecified; Z87.891 Personal history of nicotine dependence; Z99.81 Dependence on supplemental oxygen; Z92.3 Personal history of irradiation; Z90.11 Acquired absence of right breast and nipple; R79.1 Abnormal coagulation profile; E83.42 Hypomagnesemia; K59.00 Constipation, unspecified; D64.9 Anemia, unspecified; G25.3 Myoclonus; T40.2X5A Adverse effect of other opioids, initial encounter; Y92.230 Patient room in hospital as the place of occurrence of the external cause; E11.649 Type 2 diabetes mellitus with hypoglycemia without coma; E87.6 Hypokalemia; I11.0 Hypertensive heart disease with heart failure; G89.29 Other chronic pain
CPT/HCPCS: 32555; 36415; 36600; 70450; 70553; 71045; 71046; 71250; 74018; 76705; 77001; 77336; 80048; 80053; 80076; 80202; 81001; 82040; 82150; 82247; 82465; 82565; 82607; 82728; 82746; 82805; 82947; 82948; 83540; 83550; 83605; 83615; 83735; 83880; 84100; 84145; 84155; 84311; 84478; 84484; 85025; 85027; 85610; 85730; 86140; 86850; 86900; 86901; 87040; 87086; 93005; 93306; 94002; 97161; 97165; A9270; A9577; C1788; C9113; C9803; J0282; J0690; J0692; J1170; J1642; J1644; J1650; J1815; J1940; J2270; J2405; J2543; J2704; J2765; J3010; J3370; J3475; J3480; J7030; J7120; U0003; U0005